=== PATIENT | male | born 1955 | race Caucasian/White ===

== ENCOUNTER 2016-09-30 19:01 | Inpatient (IN) | payer OTHER ==
[~2016-09-30] VITALS: Ht 190.5 cm; Wt 136.9 kg
[~2016-09-30 19:01] MED LIST: ASPEC81 PO; HYG25 PO; LBT200 PO; LSN20 PO; NRV5 PO
[2016-09-30 19:44] LABS: BASO % 0.3 %; BASO ABS # 0.02 K/uL (0-0.2); COMPLETE YES; EOS % 1.1 %; HEMATOCRIT 36.3 % (42-52); IG% 0.2 %; LYMPH % 31.9 %; LYMPH ABS # 1.99 K/uL (1.2-3.4); MEAN CELL VOLUME 89.6 fL (80-100); MEAN CORPUSCULAR HEMOGLOBIN 31.1 pg (25-34); MEAN CORPUSCULAR HGB CONC 34.7 g/dl (32-36); MEAN PLATELET VOLUME 11.6 fL (7.4-10.4); NEUT % 56.5 %; PLATELET COUNT 121 K/uL (130-400); RED BLOOD COUNT 4.05 M/uL (4.7-6.1); WHITE BLOOD COUNT 6.23 K/uL (4.8-10.8)
--- NOTE | 2016-09-30 19:48 | DIAGNOSTIC IMAGING REPORT ---
CHEST ONE VIEW PORTABLE CLINICAL HISTORY: CHEST PAIN dyspnea COMPARISON STUDY: 11/17/2013 FINDINGS: The bones soft tissues and hemidiaphragms are normal. The cardiomediastinal silhouette is normal. The lungs are clear. The pulmonary vasculature is normal. IMPRESSION: Negative chest. Electronically signed by: Rob Bowen M.D. 09/30/2016 7:46 PM
[2016-09-30 19:51] LABS: CALCIUM 8.3 mg/dl (8.5-10.1); CREATININE 2.3 mg/dl (0.60-1.40); POTASSIUM 3.7 mmol/L (3.5-5.1)
[2016-09-30 19:56] LABS: INR 1.2 (0.9-1.1); PARTIAL THROMBOPLASTIN RATIO 1.1; PROTHROMBIN TIME (PATIENT) 12.8 SECONDS (9.0-12.0)
--- NOTE | 2016-09-30 20:02 | EMERGENCY ROOM VISIT NOTE ---
History Report prepared by Minda: Saman Roberts Under the Supervision of: Dr. Rubens Allison M.D. First contact with patient: 19:30 Chief Complaint: CHEST PAIN Stated Complaint: CHEST PAIN SOB Nursing Triage Summary: Pt c/o CP, pain started a week ago in his left shoulder and it started down the left arm and now pain is across his chest. SOB at times. History of Present Illness The patient is a 61 year old male who presents to the Emergency Room with complaints of persistent left sided chest pain starting this morning. For the past few weeks, the patient has been having upper back pain radiating to the neck and the left shoulder. This morning, his pain moved to the left side of his chest with pain radiation to his left shoulder. He also complains of some shortness of breath and a mild cough. He has been fatigued for the past few days. He denies any fevers. He has gained about 30-40 pounds in the past 3 months. He intermittently has worsening pain with breathing. He denies any worsening symptoms with movement. He has been having worse than normal lower extremity swelling. He denies any recent trauma or injuries. He was recently started on a new medication called Pyridostigmine Butler. He denies any history of heart disease or lung disease. He has a history of hypertension, Hepatitis C, and kidney disease. Source of History: patient Onset: this morning Position: chest (left) Timing: other (persistent) Modifying Factors (Worsening): breathing Associated Symptoms: + SOB, + cough, + fatigue, No fevers Review of Systems See HPI for pertinent positives & negatives. A total of 10 systems reviewed and were otherwise negative. Past Medical & Surgical Medical Problems: (1) Cirrhosis (2) GERD (gastroesophageal reflux disease) (3) Hepatitis C (4) History of orthopedic surgery (5) Hypertension (6) Pneumonia Old medical records were reviewed. Nurse's notes were reviewed and I agree with. Family History Diabetes mellitus FH: cancer FH: heart disease FH: lung disease Hypertension Social History Smoking Status: Never Smoker Alcohol Use: none Drug Use: none Marital Status: Housing Status: lives with family Occupation Status: employed Current/Historical Medications Scheduled Amlodipine Besylate (Amlodipine Besylate), 5 MG PO DAILY Chlorthalidone (Chlorthalidone), 25 MG PO QAM Cyanocobalamin (Vitamin B-12), 500 MCG PO DAILY Furosemide (Lasix), 40 MG PO BID Gabapentin (Neurontin), 200 MG PO TID Labetalol Hcl (Normodyne), 100 MG PO BID Lisinopril (Zestril), 30 MG PO DAILY Pantoprazole (Protonix), 40 MG PO QAM Potassium Chloride (Klor-Con M20), 20 MEQ PO BID Pyridostigmine Butler (Mestinon), 60 MG PO UD Scheduled PRN Ranitidine Hcl (Zantac), 150 MG PO BID PRN for GASTRITIS Allergies Coded Allergies: Codeine (Verified Adverse Reaction, Mild, "MAKES ME GOOFEY", 09/30/16) Physical Exam Vital Signs Date Time Temp Pulse Resp B/P Pulse Ox O2 Delivery O2 Flow Rate FiO2 09/30/16 22:56 52 16 155/75 98 09/30/16 21:30 54 16 115/62 100 09/30/16 20:00 54 16 134/70 97 09/30/16 19:34 63 09/30/16 19:26 99 Room Air 09/30/16 19:11 99 09/30/16 19:07 36.5 61 18 145/77 99 Room Air Physical Exam General: Non-ill appearing, middle aged male, in no acute distress. HEENT: Normal cephalic atraumatic. Pupils are equal round and reactive to light. Extraocular movements are intact. Oropharynx is pink with moist mucous membranes. No swelling of the mouth lips or tongue. Neck: Supple with a midline trachea. No meningeal signs or stiffness, no JVD or bruits. No Stridor. Chest: Clear to auscultation bilaterally. No wheezes or rhonchi. No increased work of breathing. Heart: regular rate and rhythm. Abdomen: Soft nontender, nondistended without rebound guarding or rigidity. Extremities: No cyanosis clubbing. No calf tenderness or assymetry. Pitting bilateral lower extremity edema. Spine/Back. Non tender to palpation. No CVA tenderness Skin: Good turgor without rashes. Neurologic exam: Cranial nerves two through 12 are intact. Motor and sensation are intact and symmetrical throughout. Medical Decision & Procedures ER Provider Diagnostic Interpretation: X-ray results as stated below per interpretation by me and the radiologist: CHEST ONE VIEW PORTABLE CLINICAL HISTORY: CHEST PAIN dyspnea COMPARISON STUDY: 11/17/2013 FINDINGS: The bones soft tissues and hemidiaphragms are normal. The cardiomediastinal silhouette is normal. The lungs are clear. The pulmonary vasculature is normal. IMPRESSION: Negative chest. Electronically signed by: Rob Bowen M.D. 09/30/2016 7:46 PM Laboratory Results Test 09/30/16 19:20 09/30/16 19:48 Immature Granulocyte % (Auto) 0.2 % White Blood Count 6.23 K/uL (4.8-10.8) Red Blood Count 4.05 M/uL (4.7-6.1) Hemoglobin 12.6 g/dL (14.0-18.0) Hematocrit 36.3 % (42-52) Mean Corpuscular Volume 89.6 fL (80-100) Mean Corpuscular Hemoglobin 31.1 pg (25-34) Mean Corpuscular Hemoglobin Concent 34.7 g/dl (32-36) Platelet Count 121 K/uL (130-400) Mean Platelet Volume 11.6 fL (7.4-10.4) Neutrophils (%) (Auto) 56.5 % Lymphocytes (%) (Auto) 31.9 % Monocytes (%) (Auto) 10.0 % Eosinophils (%) (Auto) 1.1 % Basophils (%) (Auto) 0.3 % Neutrophils # (Auto) 3.52 K/uL (1.4-6.5) Lymphocytes # (Auto) 1.99 K/uL (1.2-3.4) Monocytes # (Auto) 0.62 K/uL (0.11-0.59) Eosinophils # (Auto) 0.07 K/uL (0-0.5) Basophils # (Auto) 0.02 K/uL (0-0.2) Immature Granulocyte # (Auto) 0.01 K/uL (0.00-0.02) Prothrombin Time 12.8 SECONDS (9.0-12.0) Prothromb Time International Ratio 1.2 (0.9-1.1) Activated Partial Thromboplast Time 27.6 SECONDS (21.0-31.0) Partial Thromboplastin Ratio 1.1 Total Bilirubin 0.3 mg/dl (0.2-1) Direct Bilirubin < 0.1 mg/dl (0-0.2) Aspartate Amino Transf (AST/SGOT) 23 U/L (15-37) Alanine Aminotransferase (ALT/SGPT) 18 U/L (12-78) Alkaline Phosphatase 77 U/L (45-117) Total Protein 8.0 gm/dl (6.4-8.2) Albumin 3.7 gm/dl (3.4-5.0) Lipase 208 U/L (73-393) Thyroid Stimulating Hormone (TSH) 0.832 uIu/ml (0.300-4.500) Bedside D-Dimer > 450 ng/mlFEU (0-450) Bedside Troponin I 0.000 ng/ml (0-0.045) PF-Eeg-G-Type Natriuretic Peptide 175 pg/ml (0-900) Laboratory studies as stated above per my review. Medications Administered Medications (Trade) Dose Ordered Sig/Elliot Route Start Time Stop Time Status Last Admin Dose Admin Ranitidine HCl (zANTac TAB) 150 mg BID PRN PO 09/30/16 22:45 10/30/16 22:44 10/01/16 07:53 150 MG ECG Indication: chest pain Rate (beats per minute): 56 Rhythm: sinus bradycardia Findings: no acute ischemic change, no ectopy Comparison ECG Date: November 16, 2013 Change: T wave abnormality has resolved when compared to November 16, 2013. ED Course 1930: Past medical records reviewed. The patient was evaluated in room A12A, and a complete history and physical examination were performed. 2221: Upon reevaluation, the patient is resting comfortably. I discussed the results and treatment plan with the patient. He verbalized agreement of the treatment plan. I discussed the patient's [facility] The patient will be evaluated for further management. Medical Decision Differential diagnosis includes but is not limited to CHF, acute coronary syndrome, arrhythmia, pneumonia, pulmonary embolism, medication side effect, neurologic process. This patient comes in as described above he's had shortness of breath and some vague chest discomfort as well as significant pitting edema of his legs. He does have a history of hypertension. He is on a diuretic. His lungs sound clear on exam. IV access established. EKG, chest x-ray multiple blood testing was obtained. He was found to have an elevated BUN and creatinine. His d- dimer was also elevated. I do not think he likely has a PE but with the elevated creatinine, a CAT scan at this point is not possible. His EKG does not suggest acute coronary syndrome or ischemia. Troponin is not elevated. He has nothing to suggest infection or sepsis. This may be related to his kidneys or could be right-sided heart failure or other etiology. He was recently started on physostigmine for what sounds like myasthenia. He does not appear to be having an acute myasthenic crisis. I do think he needs to be admitted for further treatment and evaluation. Consults Time Called: [id number] Consulting Physician: [facility] Returned Call: [phone] I discussed the patient's case with Dr. Bedoya, from [facility]. Impression Primary Impression: Precordial chest pain Additional Impressions: SOB (shortness of breath), Peripheral edema, Renal failure Scribe Attestation The scribe's documentation has been prepared under my direction and personally reviewed by me in its entirety. I confirm that the note above accurately reflects all work, treatment, procedures, and medical decision making performed by me. Departure Information Dispostion Being Evaluated By Hospitalist Referrals Homar Gill M.D. (PCP) Patient Instructions A Signature Page, My [facility]
[2016-09-30 20:10] LABS: POINT OF CARE PRO-BNP 175 pg/ml (0-900)
[2016-09-30 20:17] LABS: ALKALINE PHOSPHATASE 77 U/L (45-117); ALT/SGPT 18 U/L (12-78); AST/SGOT 23 U/L (15-37); CKMB/CK RATIO 1.5 (0-3.0); THYROID STIMULATING HORMONE 0.832 uIu/ml (0.300-4.500)
[2016-09-30] MEDS ORDERED: CYAN500T PO (21:28)
[2016-09-30] MEDS ORDERED: GABA-112 PO (21:28)
[2016-09-30] MEDS ORDERED: RANI150T3 PO (21:28)
[2016-09-30] MEDS ORDERED: NRV/5 PO (21:28)
[2016-09-30] MEDS ORDERED: MCRK20 PO (21:28)
[2016-09-30] MEDS ORDERED: PYRI60TA2 PO (21:28)
[2016-09-30] MEDS ORDERED: FRS/40 PO (21:28)
[2016-09-30] MEDS ORDERED: PANT40TA PO (21:28)
[2016-09-30] MEDS ORDERED: LISI1TAB3 PO (21:28)
[2016-09-30] MEDS ORDERED: LBT/100 PO (21:28)
[2016-09-30] MEDS ORDERED: ONDANSETRON INJ 2 MG/ML 2 ML VIAL IV PRN (22:45)
[2016-09-30] MEDS ORDERED: MoRPHine SULFATE 2 MG/ML CARP IV PRN (22:45)
[2016-09-30] MEDS ORDERED: POLYETHYLENE (MIRALAX) 17 GM PACK PO PRN (22:45)
[2016-09-30] MEDS ORDERED: ACETAMINOPHEN 325 MG TAB PO PRN (22:45)
[2016-09-30] MEDS ORDERED: MAGNESIUM HYDROXIDE SUSP 30 ML UDC PO PRN (22:45)
[2016-09-30] MEDS ORDERED: NITROGLYCERIN 0.4 MG SL PER TAB CHARGE SL PRN (22:45)
[2016-09-30] MEDS ORDERED: ALUMINUM/MAGNESIUM/SIMETH (MAALOX MAX) 30 ML UDC PO PRN (22:45)
--- NOTE | 2016-09-30 23:12 | History and Physical ---
History & Physical Date & Time of Service: Sep 30, 2016 at 23:09 Chief Complaint: Chest Pain Sob Primary Care Physician: No Doctor, Assigned History of Present Illness Source: patient 61 y/o M w/Hx Hep C successfully treated in 2014, HTN, chronic edema and possibly Myasthenia Gravis. He presents with a chief complaint of worsening edema, abdominal distention and orthopnea. He also states that he had B/L intermittent upper chest pain which was not necessarily associated with his SOB. The pt had been prescribed a 2 week course of a potent diuretic in addition to his current Lasix and Chlorthalidone for worsening LE edema recently, however this did not lead to improvement and was D/Cd possibly in favor of doubling his Lasix. He reports a 30 pound weight gain over the last month. He has been having issues with double vision for an extended period and reports having had surgery on his R eye in [place] and then being placed on Pyridostigmine 2 weeks ago possibly for a diagnosis of Myasthenia Gravis. Initial labs are notable for worsening renal function - although we do not have a recent - and elevated CK/CKMB with a normal troponin. The pt was admitted for hypertensive encephalopathy in 2013 and records indicate he may have had a degree of hepatocellular disease although there is no diagnosis of cirrhosis at that time. He is treated at the [place] clinic and has not been hospitalized since 2013 so our records at present are limited. 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 he has not been able to due to his vision Smoking Status: Never Smoker Drug Use: none Marital Status: Housing status: lives with family Occupational Status: employed Immunizations History of Influenza Vaccine: No History of Tetanus Vaccine?: No History of Pneumococcal: No History of Hepatitis B Vaccine: No Multi-Drug Resistant Organisms History of MDRO: No Allergies Coded Allergies: Codeine (Verified Adverse Reaction, Mild, "MAKES ME GOOFEY", 09/30/16) Home Medications Scheduled Amlodipine Besylate (Amlodipine Besylate), 5 MG PO DAILY Chlorthalidone (Chlorthalidone), 25 MG PO QAM Cyanocobalamin (Vitamin B-12), 500 MCG PO DAILY Furosemide (Lasix), 40 MG PO BID Gabapentin (Neurontin), 200 MG PO TID Labetalol Hcl (Normodyne), 100 MG PO BID Lisinopril (Zestril), 30 MG PO DAILY Pantoprazole (Protonix), 40 MG PO QAM Potassium Chloride (Klor-Con M20), 20 MEQ PO BID Pyridostigmine Preemption (Mestinon), 60 MG PO UD Scheduled PRN Ranitidine Hcl (Zantac), 150 MG PO BID PRN for GASTRITIS Review of Systems Constitutional: No chills, No fever, No sweats Eyes: + worsening of vision (Chronic diplopia) ENT: No hearing loss, No nasal symptoms, No unusual epistaxis Respiratory: + shortness of breath, No cough, No sputum, No wheezing Cardiovascular: + chest pain, + edema, + orthopnea Abdomen: + problem reported (Abdominal girth has increased), No diarrhea, No nausea, No pain, No vomiting Musculoskeletal: + problem reported (Chronic lumbar back pain), No joint pain Genitourinary - Male: No dysuria, No hematuria Neurologic: No memory loss Psychiatric: No depression symptoms Endocrine: No fatigue Hematologic / Lymphatic: No abnormal bleeding/bruising Integumentary: No rash Allergic / Immunologic: No environmental allergies Physical Exam Vital Signs Date Time Temp Pulse Resp B/P Pulse Ox O2 Delivery O2 Flow Rate FiO2 09/30/16 22:56 52 16 155/75 98 09/30/16 21:30 54 16 115/62 100 09/30/16 20:00 54 16 134/70 97 09/30/16 19:34 63 09/30/16 19:26 99 Room Air 09/30/16 19:11 99 09/30/16 19:07 36.5 61 18 145/77 99 Room Air General Appearance: + pertinent finding (Obese middle aged male - AAO x 3 - no distress) Head: normocephalic, atraumatic Eyes: + pertinent finding (Could not sustain upward gaze to evaluate for gradual ptosis - pupils equal - anicteric) ENT: normal ENT inspection, pharynx normal Neck: supple, no JVD Respiratory/Chest: chest non-tender, lungs clear, + decreased breath sounds ( Decreased air at bases - no audible wheezing or crackles) Cardiovascular: regular rate, rhythm, no gallop, no JVD, no murmur Abdomen/GI: + pertinent finding (Soft large abdomen - possible fluid wave - normal BS) Extremities/Musculoskelatal: no calf tenderness, + pedal edema, + swelling ( Significant B/L edema extending over ankles) Skin: normal color, warm/dry, no rash Diagnostics Laboratory Results Results Past 24 Hours Test 09/30/16 19:20 09/30/16 19:48 Range/Units White Blood Count 6.23 4.8-10.8 K/uL Red Blood Count 4.05 4.7-6.1 M/uL Hemoglobin 12.6 14.0-18.0 g/dL Hematocrit 36.3 42-52 % Mean Corpuscular Volume 89.6 80-100 fL Mean Corpuscular Hemoglobin 31.1 25-34 pg Mean Corpuscular Hemoglobin Concent 34.7 32-36 g/dl Platelet Count 121 130-400 K/uL Mean Platelet Volume 11.6 7.4-10.4 fL Neutrophils (%) (Auto) 56.5 % Lymphocytes (%) (Auto) 31.9 % Monocytes (%) (Auto) 10.0 % Eosinophils (%) (Auto) 1.1 % Basophils (%) (Auto) 0.3 % Neutrophils # (Auto) 3.52 1.4-6.5 K/uL Lymphocytes # (Auto) 1.99 1.2-3.4 K/uL Monocytes # (Auto) 0.62 0.11-0.59 K/uL Eosinophils # (Auto) 0.07 0-0.5 K/uL Basophils # (Auto) 0.02 0-0.2 K/uL RDW Standard Deviation 45.1 36.4-46.3 fL RDW Coefficient of Variation 13.7 11.5-14.5 % Immature Granulocyte % (Auto) 0.2 % Immature Granulocyte # (Auto) 0.01 0.00-0.02 K/uL Prothrombin Time 12.8 9.0-12.0 SECONDS Prothromb Time International Ratio 1.2 0.9-1.1 Activated Partial Thromboplast Time 27.6 21.0-31.0 SECONDS Partial Thromboplastin Ratio 1.1 Sodium Level 144 136-145 mmol/L Potassium Level 3.7 3.5-5.1 mmol/L Chloride Level 113 98-107 mmol/L Carbon Dioxide Level 20 21-32 mmol/L Anion Gap 11.0 3-11 mmol/L Blood Urea Nitrogen 48 7-18 mg/dl Creatinine 2.30 0.60-1.40 mg/dl Est Creatinine Clear Calc Drug Dose 51.3 ml/min Estimated GFR () 34.2 Estimated GFR (Non- 29.5 BUN/Creatinine Ratio 21.0 10-20 Random Glucose 100 70-99 mg/dl Calcium Level 8.3 8.5-10.1 mg/dl Total Bilirubin 0.3 0.2-1 mg/dl Direct Bilirubin < 0.1 0-0.2 mg/dl Aspartate Amino Transf (AST/SGOT) 23 15-37 U/L Alanine Aminotransferase (ALT/SGPT) 18 12-78 U/L Alkaline Phosphatase 77 45-117 U/L Total Creatine Kinase 447 39-308 U/L Creatine Kinase MB 6.9 0.5-3.6 ng/ml Creatine Kinase MB Ratio 1.5 0-3.0 Total Protein 8.0 6.4-8.2 gm/dl Albumin 3.7 3.4-5.0 gm/dl Lipase 208 73-393 U/L Thyroid Stimulating Hormone (TSH) 0.832 0.300-4.500 uIu/ml Bedside D-Dimer > 450 0-450 ng/mlFEU Bedside Troponin I 0.000 0-0.045 ng/ml SI-Xph-H-Type Natriuretic Peptide 175 0-900 pg/ml Diagnostic Radiology CXR is clear Normal EKG Impression Assessment and Plan 61 y/o M w/Hx Hep C successfully treated in 2015, HTN, chronic edema and possibly Myasthenia Gravis - presents with a chief complaint of worsening edema , abdominal distention and orthopnea - also states that he had B/L intermittent upper chest pain - had been prescribed a 2 week course of a potent diuretic in addition to his current Lasix and Chlorthalidone for worsening LE edema recently , however this did not lead to improvement and was D/Cd possibly in favor of doubling his Lasix. He reports a 30 pound weight gain over the last month. He has been having issues with double vision for an extended period and reports having had surgery on his R eye in [place] and then being placed on Pyridostigmine 2 weeks ago possibly for a diagnosis of Myasthenia Gravis. Initial labs are notable for worsening renal function - although we do not have a recent - and elevated CK/CKMB with a normal troponin. 1) Edema - worsening LE edema and possibly ascites - has failed a new diuretic and diuretic adjustment recently - cause is not clear as a diagnosis of heart failure is clinically nondefinitive, labs are not consistent with advanced cirrhosis and he does not have a history of nephrogenic edema. He is normotensive in addition. Pts albumin is WNL. We will obtain an abdominal CT, UA to evaluate for protein, request an AM echo and hold his current diuretics pending the results. 2) CP - CK/MB elevated with normal trop and normal EKG - doubt ACS as pain is B/ L and atypical - will monitor on telemetry and trend enzymes. 3) Renal failure - UA and urine lytes pending , CT abd pending - will consider IVF based on results and diuretics temporarily held - we will need to contact his clinic to determine if this is acute. 4) Possible recent diagnosis of MG - would not abruptly discontinue Mestinon - he states that his edema may have worsened since starting however I could not find any convincing correlation on an internet search. 5) HTN - Normotensive - he is mildly bradycardic without related symptoms - will cont Metoprolol - diuretics and SINA held until a baseline renal function or diagnosis is established. Full code - Anticoagulation held pending eval for cirrhosis Total time for this admit including med rec - review of labs, imaging, EHG - discussion with ER MD and pt 48 min Level of Care Telemetry Resuscitation Status FULL RESUSCITATION VTE Prophylaxis VTE Risk Assessment Done? Y/N: Yes Risk Level: Moderate Given or contraindicated: Contraindicated
[2016-10-01] VITALS (8 sets, daily range): BP systolic 115–167; BP diastolic 66–79; PULSE 53–64; TEMP 36.4–37.1; O2SAT 95–97; Ht 190.5 cm; Wt 136.9 kg
[2016-10-01] MEDS ORDERED: INFLUENZA VIRUS QUAD VACCINE 0.5 ML SYR IM. ONE (03:15)
[2016-10-01] MEDS ORDERED: INFLUENZA ADMINISTRATION CHARGE ONE (03:15)
[2016-10-01 03:45] LABS: URINE APPEARANCE CLEAR (CLEAR); URINE BILIRUBIN NEG (NEG); URINE COLOR YELLOW; URINE NITRITE NEG (NEG); URINE SPECIFIC GRAVITY 1.017 (1.000-1.030); UROBILINOGEN NEG (NEG)
[2016-10-01 03:46] LABS: MANUAL MICROSCOPIC REQUIRED? NO; REVIEW REQ? NO
[2016-10-01 06:21] LABS: HEMATOCRIT 32.6 % (42-52); MEAN CELL VOLUME 88.6 fL (80-100); MEAN CORPUSCULAR HEMOGLOBIN 30.4 pg (25-34); MEAN CORPUSCULAR HGB CONC 34.4 g/dl (32-36); PLATELET COUNT 115 K/uL (130-400); PLT ESTIMATE DECREASED; RED BLOOD COUNT 3.68 M/uL (4.7-6.1); WHITE BLOOD COUNT 6.29 K/uL (4.8-10.8)
[2016-10-01 06:29] LABS: BLOOD UREA NITROGEN 44 mg/dl (7-18); CALCIUM 8.1 mg/dl (8.5-10.1); CARBON DIOXIDE 21 mmol/L (21-32); CHLORIDE 113 mmol/L (98-107); GLUCOSE 86 mg/dl (70-99); MAGNESIUM 2.1 mg/dl (1.8-2.4); POTASSIUM 3.6 mmol/L (3.5-5.1); SODIUM 144 mmol/L (136-145)
[2016-10-01 06:35] LABS: CKMB/CK RATIO 1.2 (0-3.0); PHOSPHORUS 3.5 mg/dl (2.5-4.9)
[2016-10-01] MEDS ORDERED: PERFLUTREN LIPID MICROSPHERE (DEFINITY) IV ONE (07:15)
--- NOTE | 2016-10-01 07:42 | DIAGNOSTIC IMAGING REPORT ---
ABDOMEN AND PELVIS CT WITHOUT CONTRAST CT DOSE: 1593.86 mGy.cm HISTORY: Suspect cirrhosis/ascites TECHNIQUE: Multiaxial CT images of the abdomen and pelvis were performed without contrast. COMPARISON STUDY: Abdominal ultrasound 11/20/2013. FINDINGS: The lung bases are clear. No pneumoperitoneum. No pneumatosis. There are few pericardial calcifications. Mild body wall edema within the lumbar region. Cholelithiasis. The gallbladder is contracted. No definite gallbladder wall thickening. Punctate calcification within the pancreatic head. Nodular contour to the liver consistent with cirrhosis. The spleen is normal in size. The adrenal glands and kidneys are unremarkable. No hydronephrosis. Mild bilateral perinephric edema which is likely chronic. No retroperitoneal lymphadenopathy. Normal bladder. Small fat-containing bilateral inguinal hernias. Suboptimal evaluation for bowel pathology due to the lack of intravenous and oral contrast. However, there is no definite bowel wall thickening or obstruction. Normal appendix. There are few left-sided abdominal venous collaterals. IMPRESSION: 1. Cirrhotic liver. 2. Cholelithiasis. 3. Colonic diverticulosis. 4. Normal appendix. 5. No definite bowel wall thickening or obstruction. Electronically signed by: Dragan Cruz M.D. 10/01/2016 7:40 AM
[2016-10-01] MEDS: LABETALOL HCL 100 MG TAB PO SCH ×2 (07:51→20:39)
[2016-10-01] MEDS: PANTOprazole SOD 40 MG TAB PO SCH (07:51)
[2016-10-01] MEDS: GABAPENTIN 100 MG CAP PO SCH ×3 (07:52→20:39)
[2016-10-01] MEDS: RANITIDINE HCL 150 MG TAB PO PRN (07:53)
[2016-10-01] MEDS: CYANOCOBALAMIN 500 MCG TAB (VIT B-12) PO SCH (07:53)
[2016-10-01] MEDS ORDERED: AMLODIPINE BESYLATE 5 MG TAB PO SCH (09:00)
[2016-10-01] MEDS: PYRIDOSTIGMINE BROMIDE 60 MG TAB PO SCH ×2 (09:04→20:39)
[2016-10-01] MEDS ORDERED: FUROSEMIDE 40 MG TAB PO ONE (10:52)
[2016-10-01] MEDS ORDERED: SPIRONOLACTONE 100 MG TAB PO ONE (10:52)
--- NOTE | 2016-10-01 11:30 | Nephrology Consultation ---
Nephrology Consultation Date & Providers Date of Consultation: Oct 01, 2016. Primary Care Provider: No Doctor, Assigned Referring Provider: Reason for Consultation Evaluation of renal insufficiency in this patient admitted with chest pain, abdominal and lower extremity edema History of Present Illness Mr. Cassidy is a 61 year old white male who is seen at the request of Dr. Wei for evaluation of renal insufficiency. Medical records in the hospital EMR were reviewed and are summarized as follows: The patient was previously cared for by Dr. Gill. Since 2013 he has received all of his medical care from the [facility]. He is hepatitis C +. 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 He has cirrhosis, HTN and myasthenia gravis. Mr. Cassidy states that over the last 3 months he has gained 30 lbs and noticed increasing abdominal girth with lower extremity edema. He was evaluated at the [facility] and started on diuretic therapy. Unfortunately his symptoms progressed and he developed orthopnea and progressive chest discomfort. Last night he experience precordial chest pain with radiation to his upper back and left arm. He presented to the ED for evaluation. ECG revealed sinus bradycardia. There were no acute ischemic changes. CPK was elevated but troponin was normal. Creatinine was found to be elevated at 2.3. Noncontrast abdominal CT was negative for hydronephrosis or renal mass but did reveal cirrhosis with ascites. Past Medical/Surgical History Medical: # Hepatitis C + # Cirrhosis # Myasthenia gravis w/ double vision # GERD # HTN Allergies Coded Allergies: Codeine (Verified Adverse Reaction, Mild, "MAKES ME GOOFEY", 09/30/16) Inpatient Medications Current Inpatient Medications Medications (Trade) Dose Ordered Sig/Elliot Route Start Time Stop Time Status Last Admin Dose Admin Cyanocobalamin (Vitamin B-12 Tab) 500 mcg DAILY PO 10/01/16 09:00 10/31/16 08:59 10/01/16 07:53 500 MCG Gabapentin (Neurontin Cap) 200 mg TID PO 10/01/16 09:00 10/31/16 08:59 10/01/16 07:52 200 MG Labetalol HCl (Normodyne Tab) 100 mg BID PO 10/01/16 09:00 10/31/16 08:59 10/01/16 07:51 100 MG Pantoprazole Sodium (Protonix Tab) 40 mg QAM PO 10/01/16 09:00 10/31/16 08:59 10/01/16 07:51 40 MG Pyridostigmine [place] (Mestinon Tab) 60 mg BID PO 10/01/16 09:00 10/03/16 21:01 10/01/16 09:04 60 MG Ranitidine HCl (zANTac TAB) 150 mg BID PRN PO 09/30/16 22:45 10/30/16 22:44 10/01/16 07:53 150 MG Acetaminophen (Tylenol Tab) 650 mg Q4H PRN PO 09/30/16 22:45 10/30/16 22:44 Al Hydrox/Mg Hydrox/Simethicone (Maalox Max Susp) 15 ml Q4H PRN PO 09/30/16 22:45 10/30/16 22:44 Magnesium Hydroxide (Milk Of Magnesia Susp) 30 ml Q12H PRN PO 09/30/16 22:45 10/30/16 22:44 Ondansetron HCl (Zofran Inj) 4 mg Q6H PRN IV 09/30/16 22:45 10/30/16 22:44 Nitroglycerin (Nitrostat Tab) 0.4 mg UD PRN SL 09/30/16 22:45 10/30/16 22:44 Morphine Sulfate (MoRPHine SULFATE INJ) 2 mg Q30M PRN IV 09/30/16 22:45 10/14/16 22:44 Polyethylene (Miralax Powder Packet) 17 gm DAILY PRN PO 09/30/16 22:45 10/30/16 22:44 Pyridostigmine [place] (Mestinon Tab) 60 mg TID PO 10/04/16 09:00 10/10/16 21:01 Pyridostigmine [place] (Mestinon Tab) 60 mg QID PO 10/11/16 09:00 11/10/16 08:59 Furosemide (Lasix tab) 40 mg QAM PO 10/02/16 09:00 11/01/16 08:59 UNV Furosemide (Lasix tab) 40 mg 1052 ONCE PO 10/01/16 10:52 10/01/16 10:53 UNV Spironolactone (Aldactone Tab) 100 mg QAM PO 10/02/16 09:00 11/01/16 08:59 UNV Spironolactone (Aldactone Tab) 100 mg 1052 ONCE PO 10/01/16 10:52 10/01/16 10:53 UNV Family History Diabetes mellitus FH: cancer FH: heart disease FH: lung disease Hypertension Negative for CKD/ESRD Social History Smoking Status: Never Smoker Drug Use: none Marital Status: Housing Status: lives with family Occupation: employed Single. Unemployed. Never a smoker. Denies alcohol use. Review of Systems Constitutional: No fever Respiratory: No cough, No shortness of breath Cardiovascular: + edema, No chest pain Abdomen: + problem reported (+ abdominal distention) A complete review of systems was performed. Pertinent positives are noted above. All other systems are negative. Physical Exam Date Time Temp Pulse Resp B/P Pulse Ox O2 Delivery O2 Flow Rate FiO2 10/01/16 08:17 36.8 63 22 128/79 95 Room Air 10/01/16 04:00 Room Air 10/01/16 04:00 Room Air 10/01/16 03:19 36.4 64 20 115/66 96 Room Air 10/01/16 00:19 36.7 58 21 167/70 97 Room Air 09/30/16 23:11 56 09/30/16 22:56 52 16 155/75 98 09/30/16 21:30 54 16 115/62 100 09/30/16 20:00 54 16 134/70 97 09/30/16 19:34 63 09/30/16 19:26 99 Room Air 09/30/16 19:11 99 09/30/16 19:07 36.5 61 18 145/77 99 Room Air General Appearance: no apparent distress Head: normocephalic, atraumatic Eyes: PERRL, EOMI Neck: supple, no adenopathy, no JVD Respiratory/Chest: lungs clear, no respiratory distress Cardiovascular: regular rate, rhythm, no murmur Abdomen/GI: non tender, soft, + distended Genitourinary - Male: + pertinent finding (no scrotal swelling) Extremities/Musculoskelatal: + swelling (2+ pretibial pitting edema) Neurologic/Psych: alert, oriented x 3 Laboratory Results Last 24 Hours Test 09/30/16 19:20 09/30/16 19:48 10/01/16 03:15 10/01/16 04:56 White Blood Count 6.23 K/uL 6.29 K/uL Red Blood Count 4.05 M/uL 3.68 M/uL Hemoglobin 12.6 g/dL 11.2 g/dL Hematocrit 36.3 % 32.6 % Mean Corpuscular Volume 89.6 fL 88.6 fL Mean Corpuscular Hemoglobin 31.1 pg 30.4 pg Mean Corpuscular Hemoglobin Concent 34.7 g/dl 34.4 g/dl Platelet Count 121 K/uL 115 K/uL Mean Platelet Volume 11.6 fL 12.0 fL Neutrophils (%) (Auto) 56.5 % Lymphocytes (%) (Auto) 31.9 % Monocytes (%) (Auto) 10.0 % Eosinophils (%) (Auto) 1.1 % Basophils (%) (Auto) 0.3 % Neutrophils # (Auto) 3.52 K/uL Lymphocytes # (Auto) 1.99 K/uL Monocytes # (Auto) 0.62 K/uL Eosinophils # (Auto) 0.07 K/uL Basophils # (Auto) 0.02 K/uL RDW Standard Deviation 45.1 fL 43.8 fL RDW Coefficient of Variation 13.7 % 13.6 % Immature Granulocyte % (Auto) 0.2 % Immature Granulocyte # (Auto) 0.01 K/uL Prothrombin Time 12.8 SECONDS Prothromb Time International Ratio 1.2 Activated Partial Thromboplast Time 27.6 SECONDS Partial Thromboplastin Ratio 1.1 Sodium Level 144 mmol/L 144 mmol/L Potassium Level 3.7 mmol/L 3.6 mmol/L Chloride Level 113 mmol/L 113 mmol/L Carbon Dioxide Level 20 mmol/L 21 mmol/L Anion Gap 11.0 mmol/L 10.0 mmol/L Blood Urea Nitrogen 48 mg/dl 44 mg/dl Creatinine 2.30 mg/dl 2.10 mg/dl Est Creatinine Clear Calc Drug Dose 51.3 ml/min 55.7 ml/min Estimated GFR () 34.2 38.2 Estimated GFR (Non- 29.5 33.0 BUN/Creatinine Ratio 21.0 21.0 Random Glucose 100 mg/dl 86 mg/dl Calcium Level 8.3 mg/dl 8.1 mg/dl Total Bilirubin 0.3 mg/dl Direct Bilirubin < 0.1 mg/dl Aspartate Amino Transf (AST/SGOT) 23 U/L Alanine Aminotransferase (ALT/SGPT) 18 U/L Alkaline Phosphatase 77 U/L Total Creatine Kinase 447 U/L 388 U/L Creatine Kinase MB 6.9 ng/ml 4.8 ng/ml Creatine Kinase MB Ratio 1.5 1.2 Total Protein 8.0 gm/dl Albumin 3.7 gm/dl Lipase 208 U/L Thyroid Stimulating Hormone (TSH) 0.832 uIu/ml Bedside D-Dimer > 450 ng/mlFEU Bedside Troponin I 0.000 ng/ml YO-Pim-V-Type Natriuretic Peptide 175 pg/ml Urine Color YELLOW Urine Appearance CLEAR Urine pH 5.0 Urine Specific [place] 1.017 Urine Protein NEG Urine Glucose (UA) NEG Urine Ketones NEG Urine Occult Blood NEG Urine Nitrite NEG Urine Bilirubin NEG Urine Urobilinogen NEG Urine Leukocyte Esterase NEG Platelet Estimate DECREASED Phosphorus Level 3.5 mg/dl Magnesium Level 2.1 mg/dl Troponin I < 0.015 ng/ml Impression (1) Renal failure (2) Cirrhosis (3) Hepatitis C (4) Precordial chest pain (5) Hypertension Renal impairment. Urine sediment is acellular. Urinary protein was negative by dipstick. Abdominal CT was negative for obstruction. Patient's last creatinine value in EMR was 2012. Creatinine was 1.0 at that time. Patient's history is significant for Hepatitis C + and cirrhosis. He was admitted for evaluation of chest discomfort, orthopnea and progressive abdominal ascites and lower extremity edema. Recommendations -- Will request last OV note and previous serum creatinine values from the [facility] -- Will order renal US to check kidney size and cortical thickness -- Start furosemide 40 mg and spironolactone 100 mg daily to mobilize ascites and peripheral edema -- Discontinue amlodipine (LE edema), chlorthalidone and lisinopril -- Continue Labetalol for blood pressure control -- Monitor serial PRP -- Will check hepatitis C titer -- Consider consultation w/ GI due to cirrhosis -- Will order echocardiogram due to chest discomfort and progressive edema
--- NOTE | 2016-10-01 13:31 | DIAGNOSTIC IMAGING REPORT ---
RENAL ULTRASOUND HISTORY: Chronic kidney disease. COMPARISON: Abdomen and pelvis CT 09/30/2016. Renal ultrasound 11/19/2013. FINDINGS: Right kidney: 11.3 cm. No hydronephrosis. Moderate cortical thinning most pronounced within the lower pole which measures 1.4 cm in thickness. Normal corticomedullary differentiation. Left kidney: 10.6 cm. No hydronephrosis. Moderate cortical thinning most pronounced within the upper pole which measures 1.3 cm in thickness. Normal corticomedullary differentiation. There is 1.4 cm cyst within the lower pole. Bladder: No bladder wall thickening. IMPRESSION: 1. Moderate bilateral cortical renal thinning. 2. No hydronephrosis. Electronically signed by: Dragan Crzu M.D. 10/01/2016 1:30 PM
[2016-10-01 15:03] LABS: URINE PROTIEN/CREAT RATIO 0.2 (0-0.2); URINE TOTAL PROTEIN 10.6 mg/dl (0-11.9)
--- NOTE | 2016-10-01 15:21 | ECHOCARDIOGRAM REPORT ---
*NOTICE TO RECEIVING [employer] This information is strictly Confidential and protected under [place] law. [place] law prohibits you from making any further disclosure of this information unless further disclosure is expressly permitted by the written consent of the person to whom it pertains or is authorized by law. A general authorization for the release of medical or other information is not sufficient for this purpose. Hospital accepts no responsibility if the information is made available to any other person, INCLUDING THE PATIENT. Interpretation Summary * Name: PABLITO RANGEL Study Date: 10/01/2016 06:53 AM BP: 128/79 mmHg * Patient Location: C.2T\S\S229\S\1 HR: 63 * : 1955 (M/d/yyyy) Gender: Male Height: 75 in * Age: 61 yrs Ethnicity: CA Weight: 313 lb * Ordering Physician: Chava Bedoya * Referring Physician: Self, Referred * Performed By: Matt Farias RCS * * Reason For Study: CHF * BSA: 2.7 m2 * -- Conclusions -- * Compared with 11/17/13 study, no significant change. * The left ventricle is normal in size. * Ejection Fraction = 65-70%. * Left ventricular systolic function is normal. * The left ventricular wall motion is normal. * There is mild concentric left ventricular hypertrophy. * Grade I diastolic dysfunction, (abnormal relaxation pattern). * No significant valvular disease. Procedure Details * A complete two-dimensional transthoracic echocardiogram was performed (2D, M-mode, Doppler and color flow Doppler). * The study was technically difficult. * There were technical limitations due to patient'sbody habitus * A contrast injection of Definity was performed to improve assessment of LV function. * Contrast was injected into an intravenous site in the left arm. * One vial of Definity ultrasound contrast was diluted in normal saline to a total volume of 10 ml. A total of '2' ml of solution was administered during imaging. * Lot # [id number] of Definity utilized for procedure. * Expiration date 1JUN. * The attending nurse who injected the contrast agent was Milly Burgos RN. Left Ventricle * The left ventricle is normal in size. * There is mild concentric left ventricular hypertrophy. * Ejection Fraction = 65-70%. * Left ventricular systolic function is normal. * The left ventricular wall motion is normal. Right Ventricle * The right ventricle is grossly normal size. Atria * The left atrial size is normal. * Right atrial size is normal. * The interatrial septum is intact with no evidence for an atrial septal defect. Mitral Valve * The mitral valve is normal in structure and function. * Significant mitral regurgitation is absent. Tricuspid Valve * The tricuspid valve is normal in structure and function. * Significant tricuspid regurgitation is absent. Aortic Valve * Aortic valve sclerosis mild, without significant aortic valvular stenosis. * No hemodynamically significant valvular aortic stenosis. * There is no significant aortic regurgitation. Pulmonic Valve * The pulmonary valve is inadequately visualized, but the Doppler data is adequate for interpretation. * There is no pulmonic valvular regurgitation. Great Vessels * Aortic arch of normal dimension. * No obvious dissection could be visualized. * The pulmonary artery is not well visualized, but is probably normal size. Pericardium/Pleural * There is no pericardial effusion. Great Vessels * Normal inferior vena cava diameter and respiratory variation suggests normal central venous pressure. Left Ventricular Diastolic Function * Grade I diastolic dysfunction, (abnormal relaxation pattern). MMode 2D Measurements and Calculations IVSd 1.2 cm IVSs 1.4 cm LVIDd 6.0 cm LVIDs 3.7 cm LVPWd 1.2 cm LVPWs 1.5 cm IVS/LVPW 1.0 FS 37.4 % EDV(Teich) 178.9 ml ESV(Teich) 60.0 ml EF(Teich) 66.5 % EDV(cubed) 214.3 ml ESV(cubed) 52.7 ml EF(cubed) 75.4 % % IVS thick 16.1 % % LVPW thick 25.7 % LV mass(C)d 324.0 grams LV mass(C)dI 122.1 grams/m\S\2 LV mass(C)s 210.1 grams LV mass(C)sI 79.1 grams/m\S\2 CO(Teich) 8.4 l/min CI(Teich) 3.2 l/min/m\S\2 SV(Teich) 118.9 ml SI(Teich) 44.8 ml/m\S\2 CO(cubed) 11.5 l/min CI(cubed) 4.3 l/min/m\S\2 SV(cubed) 161.6 ml SI(cubed) 60.9 ml/m\S\2 Ao root diam 4.0 cm Ao root area 12.4 cm\S\2 ACS 1.5 cm LA dimension 3.9 cm LA/Ao 0.99 LVAd ap4 32.3 cm\S\2 LVLd ap4 8.2 cm EDV(MOD-sp4) 104.0 ml LVAs ap4 16.9 cm\S\2 LVLs ap4 7.7 cm ESV(MOD-sp4) 31.0 ml EF(MOD-sp4) 70.2 % LVAd ap2 40.3 cm\S\2 LVLd ap2 9.3 cm EDV(MOD-sp2) 143.0 ml LVAs ap2 18.3 cm\S\2 LVLs ap2 8.0 cm ESV(MOD-sp2) 35.0 ml EF(MOD-sp2) 75.5 % CO(MOD-sp4) 5.2 l/min CI(MOD-sp4) 2.0 l/min/m\S\2 SV(MOD-sp4) 73.0 ml SI(MOD-sp4) 27.5 ml/m\S\2 CO(MOD-sp2) 7.7 l/min CI(MOD-sp2) 2.9 l/min/m\S\2 SV(MOD-sp2) 108.0 ml SI(MOD-sp2) 40.7 ml/m\S\2 Doppler Measurements and Calculations MV E max bin 128.2 cm/sec MV A max bin 104.2 cm/sec MV E/A 1.2 MV P1/2t max bin 153.8 cm/sec MV P1/2t 91.8 msec MVA(P1/2t) 2.4 cm\S\2 MV dec slope 490.6 cm/sec\S\2 MV dec time 0.25 sec Ao V2 max 182.2 cm/sec Ao max PG 13.3 mmHg Ao max PG (full) 1.2 mmHg LV V1 max PG 12.0 mmHg LV V1 max 173.5 cm/sec PA V2 max 116.4 cm/sec PA max PG 5.4 mmHg
--- NOTE | 2016-10-01 19:44 | Hospitalist Progress Note ---
Hospitalist Progress Note Date of Service Oct 01, 2016. Subjective Pt evaluation today including: conversation w/ patient, physical exam, chart review, lab review, review of studies, review of inpatient medication list Pt is a 61 yo male with a recent dx of Myasthenia Gravis diagnosed after having diplopia and an EMG of the neck and face. He was started on Mestinon about 1-2 weeks ago. He reports about 4-5 days ago he started noticing SOB that was progressively worse. There was also some left shoulder pain that then radiated across his left chest over to the right chest and was fairly severe, associated with the SOB. When he would stop and rest, the SOB would improve. The CP came and went over the last few days but his biggest complaint is the progressively worsening SOb over the last 4-5 days that got so bad he came to the ER. Lookig back, he does think he has had some mild SOB over the last year. He also has had about a 30 lb weight gain and abd distension and was found to have cirrhosis on imaging performed here in the ER. He does note his plts have been a little low over the past few years at the [facility] where [facility] gets his care. He was treated for Hep C successfully in 2014. He has never had a cardiac stress test. He reports his BP was previously significantly elevated nad was admitted here in 2-14 fo rthis but since taking meds, it has improved. He was never a smoker. His CXR here is clear, his ECHO shows grade 1 diastolic dysfunction and LVH but otherwise normal LV fxn and valves. He is unsure if he had renal failure in the past and we are now awaiting [facility] to see what baseline design chief is. His legs have been largely swollen over the last 6-8 months and he reports today is the first time he has seen his ankles in 8 months after receiving one dose of lasix and aldactone. No more CP since being here. Trop neg x 2, ECG normal. Constitutional: No fever Eyes: + diplopia ENT: No problem reported Respiratory: + dyspnea on exertion, + shortness of breath Cardiovascular: + chest pain, + edema, No orthopnea Abdomen: No nausea, No pain, No vomiting Musculoskeletal: + swelling (legs) Male : No problem reported Psychiatric: No problem reported Heme: No problem reported Endo: No fatigue All Other Systems: Reviewed and Negative Objective Vital Signs Date Time Temp Pulse Resp B/P Pulse Ox O2 Delivery O2 Flow Rate FiO2 10/01/16 16:00 Room Air 10/01/16 14:56 36.9 54 20 143/73 97 Room Air 10/01/16 12:00 Room Air 10/01/16 11:32 37.0 57 18 124/66 96 Room Air 10/01/16 08:17 36.8 63 22 128/79 95 Room Air 10/01/16 08:00 96 Room Air 10/01/16 04:00 Room Air 10/01/16 04:00 Room Air 10/01/16 03:19 36.4 64 20 115/66 96 Room Air 10/01/16 00:19 36.7 58 21 167/70 97 Room Air 09/30/16 23:11 56 09/30/16 22:56 52 16 155/75 98 09/30/16 21:30 54 16 115/62 100 09/30/16 20:00 54 16 134/70 97 09/30/16 19:34 63 09/30/16 19:26 99 Room Air Physical Exam General Appearance: no apparent distress (very pleasant), + obese Eyes: EOMI, sclerae normal, + pertinent finding (slightly disconjugate gaze, has diplopia with forward gaze and pretty much in all directions) ENT: hearing grossly normal, pharynx normal Neck: trachea midline Respiratory/Chest: lungs clear, normal breath sounds, no respiratory distress, no accessory muscle use Cardiovascular: regular rate, rhythm, no gallop, no murmur, + pertinent finding (3+ pitting edema LEs to thighs bilat) Abdomen: normal bowel sounds, non tender, soft (and obese,), no organomegaly Extremities: non-tender, no calf tenderness Neurologic/Psychiatric: alert, normal mood/affect, oriented x 3, + EOM palsy Skin: normal color, warm/dry, + rash (mild erythematous maculopapular rash on right upper chest) Laboratory Results Last 24 Hours Test 09/30/16 19:20 09/30/16 19:48 10/01/16 03:15 10/01/16 04:56 White Blood Count 6.23 K/uL 6.29 K/uL Red Blood Count 4.05 M/uL 3.68 M/uL Hemoglobin 12.6 g/dL 11.2 g/dL Hematocrit 36.3 % 32.6 % Mean Corpuscular Volume 89.6 fL 88.6 fL Mean Corpuscular Hemoglobin 31.1 pg 30.4 pg Mean Corpuscular Hemoglobin Concent 34.7 g/dl 34.4 g/dl Platelet Count 121 K/uL 115 K/uL Mean Platelet Volume 11.6 fL 12.0 fL Neutrophils (%) (Auto) 56.5 % Lymphocytes (%) (Auto) 31.9 % Monocytes (%) (Auto) 10.0 % Eosinophils (%) (Auto) 1.1 % Basophils (%) (Auto) 0.3 % Neutrophils # (Auto) 3.52 K/uL Lymphocytes # (Auto) 1.99 K/uL Monocytes # (Auto) 0.62 K/uL Eosinophils # (Auto) 0.07 K/uL Basophils # (Auto) 0.02 K/uL RDW Standard Deviation 45.1 fL 43.8 fL RDW Coefficient of Variation 13.7 % 13.6 % Immature Granulocyte % (Auto) 0.2 % Immature Granulocyte # (Auto) 0.01 K/uL Prothrombin Time 12.8 SECONDS Prothromb Time International Ratio 1.2 Activated Partial Thromboplast Time 27.6 SECONDS Partial Thromboplastin Ratio 1.1 Sodium Level 144 mmol/L 144 mmol/L Potassium Level 3.7 mmol/L 3.6 mmol/L Chloride Level 113 mmol/L 113 mmol/L Carbon Dioxide Level 20 mmol/L 21 mmol/L Anion Gap 11.0 mmol/L 10.0 mmol/L Blood Urea Nitrogen 48 mg/dl 44 mg/dl Creatinine 2.30 mg/dl 2.10 mg/dl Est Creatinine Clear Calc Drug Dose 51.3 ml/min 55.7 ml/min Estimated GFR () 34.2 38.2 Estimated GFR (Non- 29.5 33.0 BUN/Creatinine Ratio 21.0 21.0 Random Glucose 100 mg/dl 86 mg/dl Calcium Level 8.3 mg/dl 8.1 mg/dl Total Bilirubin 0.3 mg/dl Direct Bilirubin < 0.1 mg/dl Aspartate Amino Transf (AST/SGOT) 23 U/L Alanine Aminotransferase (ALT/SGPT) 18 U/L Alkaline Phosphatase 77 U/L Total Creatine Kinase 447 U/L 388 U/L Creatine Kinase MB 6.9 ng/ml 4.8 ng/ml Creatine Kinase MB Ratio 1.5 1.2 Total Protein 8.0 gm/dl Albumin 3.7 gm/dl Lipase 208 U/L Thyroid Stimulating Hormone (TSH) 0.832 uIu/ml Bedside D-Dimer > 450 ng/mlFEU Bedside Troponin I 0.000 ng/ml [id number] Natriuretic Peptide 175 pg/ml Urine Color YELLOW Urine Appearance CLEAR Urine pH 5.0 Urine Specific [place] 1.017 Urine Protein NEG Urine Glucose (UA) NEG Urine Ketones NEG Urine Occult Blood NEG Urine Nitrite NEG Urine Bilirubin NEG Urine Urobilinogen NEG Urine Leukocyte Esterase NEG Platelet Estimate DECREASED Phosphorus Level 3.5 mg/dl Magnesium Level 2.1 mg/dl Troponin I < 0.015 ng/ml Test 10/01/16 12:20 10/01/16 13:45 Urine Random Creatinine 73.0 mg/dl Urine Random Total Protein 10.6 mg/dl Urine Protein/Creatinine Ratio 0.2 Assessment and Plan Pt is a 61 yo male with a h/o HTN, Hep C (treated), recent dx of Myasthenia Gravis diagnosed after having diplopia and an EMG of the neck and face. He was started on Mestinon about 1-2 weeks ago. He reports about 4-5 days ago he started noticing SOB that was progressively worse. There was also some left shoulder pain that then radiated across his left chest over to the right chest and was fairly severe, associated with the SOB. When he would stop and rest, the SOB would improve. The CP came and went over the last few days but his biggest complaint is the progressively worsening SOB over the last 4-5 days that got so bad he came to the ER. Looking back, he does think he has had some mild SOB over the last year. He also has had about a 30 lb weight gain and abd distension and was found to have cirrhosis on imaging performed here in the ER. He does note his pl[facility] He was treated for Hep C successfully in 2014. He has never had a cardiac stress test. He reports his BP was previously significantly elevated nad was admitted here in 2-14 fo rthis but since taking meds, it has improved. He was never a smoker. His CXR here is clear, his ECHO shows grade 1 diastolic dysfunction and LVH but otherwise normal LV fxn and valves. He is unsure if he had renal failure in the past and we are now awaiting his [facility] labs to see what baseline design chief is. His legs have been largely swollen over the last 6-8 months and he reports today is the first time he has seen his ankles in 8 months after receiving one dose of lasix and aldactone. No more CP since being here. Trop neg x 2, ECG normal. He had been prescribed a 2 week course of a potent diuretic he describes in addition to his current Lasix and Chlorthalidone for worsening LE edema recently , however this did not lead to improvement and was D/Cd possibly in favor of doubling his Lasix. Edema, CKD stage III with possible RENÉE - worsening LE edema and possibly ascites , on several diuretics and ACEI. 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 Cause could be from cirrhosis although albumin is WNL. Abd CT shows cirrhosis and some perinephric edema, UA to negative for protein. ECHO with grade 1 diastolic dysfunction and LVH, preserved LVEF. Renal US with cortical thinning, no obstruction -Nephrology consulted and appreciate recommendations -follow PRP -started lasix and aldactone -stop amlodipine (due to peripheral edema) and lisinopril as per Nephro CP, SOB, Myasthenia gravis by report, on Mestinon x 1-2 week - CK/MB elevated with normal trop and normal EKG. Second troponin negative. I believe his worsening SOB is related to his MG or possibly as an adverse side effect of his Mestinon as it did seem to worsen significantly after starting this med. -consult Cardiology for eval for appropriate stress testing given risk factors and anginal type chest pain--> probably not able to exercise due to significant CHASE and Myasthenia -Consult Neuro to assist with management and further workup for MG -continue Mestinon for now -request [facility] records Cirrhosis, h/o treated Hep C, thrombocytopenia- INR 1.2, plts 112, LFTs normal, cirrhosis on CT with some ascites. No evidence clinically of varices or h/o GI bleeding. -started lasix and aldactone -consult GI for further eval HTN - Normotensive -continue labetalol Full code - Anticoagulation held pending eval for cirrhosis
[2016-10-02] VITALS (10 sets, daily range): BP systolic 119–152; BP diastolic 69–81; PULSE 50–60; TEMP 36.3–37; O2SAT 94–98
[2016-10-02 06:05] LABS: HEMATOCRIT 33.2 % (42-52); MEAN CELL VOLUME 89.2 fL (80-100); MEAN CORPUSCULAR HEMOGLOBIN 30.6 pg (25-34); MEAN CORPUSCULAR HGB CONC 34.3 g/dl (32-36); MEAN PLATELET VOLUME 11.1 fL (7.4-10.4); PLATELET COUNT 105 K/uL (130-400); RED BLOOD COUNT 3.72 M/uL (4.7-6.1); WHITE BLOOD COUNT 5.42 K/uL (4.8-10.8)
[2016-10-02 06:20] LABS: INR 1.1 (0.9-1.1); PROTHROMBIN TIME (PATIENT) 12.3 SECONDS (9.0-12.0)
[2016-10-02 06:30] LABS: AST/SGOT 17 U/L (15-37); BLOOD UREA NITROGEN 38 mg/dl (7-18); BUN/CREATININE RATIO 20.9 (10-20); CALCIUM 8.8 mg/dl (8.5-10.1); CARBON DIOXIDE 26 mmol/L (21-32); CHLORIDE 109 mmol/L (98-107); GLUCOSE 96 mg/dl (70-99); POTASSIUM 3.7 mmol/L (3.5-5.1); SODIUM 142 mmol/L (136-145)
[2016-10-02 06:33] LABS: ALKALINE PHOSPHATASE 70 U/L (45-117); ALT/SGPT 18 U/L (12-78)
[2016-10-02] MEDS: PYRIDOSTIGMINE BROMIDE 60 MG TAB PO SCH (08:15)
[2016-10-02] MEDS: PANTOprazole SOD 40 MG TAB PO SCH (08:15)
[2016-10-02] MEDS: CYANOCOBALAMIN 500 MCG TAB (VIT B-12) PO SCH (08:16)
[2016-10-02] MEDS: RANITIDINE HCL 150 MG TAB PO PRN (08:16)
[2016-10-02] MEDS: GABAPENTIN 100 MG CAP PO SCH ×3 (08:18→21:59)
[2016-10-02] MEDS: SPIRONOLACTONE 100 MG TAB PO SCH (08:18)
[2016-10-02] MEDS: FUROSEMIDE 40 MG TAB PO SCH (08:18)
[2016-10-02] MEDS: LABETALOL HCL 100 MG TAB PO SCH ×2 (08:18→21:59)
--- NOTE | 2016-10-02 09:41 | Neurology Consultation ---
Neurology Consultation Date of Consultation: Oct 02, 2016. Attending Physician: Barb Wei MD Primary Care Physician: No Doctor, Assigned Reason for Consultation: Patient is a 61-year-old, who was asked to see the request of Dr. eWi, for neurologic consultation regarding myasthenia gravis. History of Present Illness Source: patient, clinic records, hospital records Result this patient 1995 for chronic low back pain which she had had for 10 years in addition to radicular symptoms in his right greater than left leg. At that time he had a right L4 radiculopathy, mild bilateral carpal tunnel syndromes, and a very mild left ulnar neuropathy at the wrist. He had diffuse arthralgias. Amitriptyline did not help. I last saw him in 1996. He tells me he has been following in the [facility] system ever since. He has had problems with hepatitis C for the last 20 some years and has hepatic cirrhosis. He was treated in 2014 for hepatitis C and he believes that he is now cured. Unfortunately, he still has hepatic issues and has had considerable edema. He also has renal insufficiency. In 2011 he was admitted for significant headaches and saw Dr. Mills. He was diagnosed with hypertension related headaches and an MRI of the brain was unremarkable. In 2013 he was admitted with hypertensive encephalopathy. Patient tells me that about 5 or 6 years ago he was working and lost his vision for some temporary amount of time. Following this she's had intermittent double vision and poor vision. He ended up seeing an eye doctor about 2 years ago. This eye doctor did some sort of muscle surgery in the right eye, and then 2 months later muscle surgery on the left eye. This surgeries did not fix his double vision. The patient has intermittent double vision on a daily basis. He can wake up with it or can occur at any time during the day. It may be a little worse. He is tired or he focuses too long on an object. He does not remember any droopy eyelids and does not remember any choking on liquids or solids. He swallows well. More recently he's had some shortness of breath but he has gained a lot of fluid and had some increased edema. The patient saw a physician at the [facility] towards the end of the summer who did electrical studies and ended up thinking that the patient probably had myasthenia gravis. Some laboratory studies apparently were unremarkable but I don't have any of these results. He waited several months not hearing and after double checking the [place] physician decided to a trial of Mestinon. 2 weeks ago he started 60 mg once a day for 1 week and then over the last week he has been taking 60 mg twice a day. His double vision has not improved and he has side effects of nausea and ill feeling on the medication. He is also had some diarrhea. On September 30, he was admitted to our hospital for 4-5 days of shortness of breath and left shoulder and chest pain. He had a 30 pound weight gain. Vital signs on admission were unremarkable. A chest x-ray was negative as well. He was noted on laboratory studies to have some renal insufficiency and is now seen by Dr. Baldwin. He has some mild anemia but the rest of his chemistry profile was unremarkable. CK on admission was 447 and now is 338. Since his been of the hospital, he was lost some fluid and has no shortness of breath this morning. He still has some intermittent double vision depending on how he looks but he has no vision loss, weakness or numbness in the limbs, choking or swallowing problems. Past Medical/Surgical History Medical Problems: (1) Peripheral edema Status: Acute (2) Precordial chest pain Status: Acute (3) Renal failure Status: Acute (4) SOB (shortness of breath) Status: Acute Chronic low back pain with history of radiculopathy. Patient has right thigh numbness of a chronic nature. History of ADHD Hypertension Gastroesophageal reflux disease History of hepatitis C treated successfully in 2014 but with chronic cirrhosis Chronic edema Post left hernia repair age 10. Post eye muscle surgery 2 years ago bilaterally Family History No significant or contributory medical family history Social History The patient worked for many years working with [employer]. He had stopped 5 years ago when his vision became poor. 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 Smoking Status: Never smoker Smokeless Tobacco Use: No Alcohol Use: none Drug Use: none Marital Status: Housing Status: lives with family Occupation Status: employed Allergies Coded Allergies: Codeine (Verified Adverse Reaction, Mild, "MAKES ME GOOFEY", 09/30/16) Current Inpatient Medications Current Inpatient Medications Medications (Trade) Dose Ordered Sig/Elliot Route Start Time Stop Time Status Last Admin Dose Admin Cyanocobalamin (Vitamin B-12 Tab) 500 mcg DAILY PO 10/01/16 09:00 10/31/16 08:59 10/02/16 08:16 500 MCG Gabapentin (Neurontin Cap) 200 mg TID PO 10/01/16 09:00 10/31/16 08:59 10/02/16 08:18 200 MG Labetalol HCl (Normodyne Tab) 100 mg BID PO 10/01/16 09:00 10/31/16 08:59 10/02/16 08:18 100 MG Pantoprazole Sodium (Protonix Tab) 40 mg QAM PO 10/01/16 09:00 10/31/16 08:59 10/02/16 08:15 40 MG Pyridostigmine [place] (Mestinon Tab) 60 mg BID PO 10/01/16 09:00 10/03/16 21:01 10/02/16 08:15 60 MG Ranitidine HCl (zANTac TAB) 150 mg BID PRN PO 09/30/16 22:45 10/30/16 22:44 10/02/16 08:16 150 MG Acetaminophen (Tylenol Tab) 650 mg Q4H PRN PO 09/30/16 22:45 10/30/16 22:44 Al Hydrox/Mg Hydrox/Simethicone (Maalox Max Susp) 15 ml Q4H PRN PO 09/30/16 22:45 10/30/16 22:44 Magnesium Hydroxide (Milk Of Magnesia Susp) 30 ml Q12H PRN PO 09/30/16 22:45 10/30/16 22:44 Ondansetron HCl (Zofran Inj) 4 mg Q6H PRN IV 09/30/16 22:45 10/30/16 22:44 Nitroglycerin (Nitrostat Tab) 0.4 mg UD PRN SL 09/30/16 22:45 10/30/16 22:44 Morphine Sulfate (MoRPHine SULFATE INJ) 2 mg Q30M PRN IV 09/30/16 22:45 10/14/16 22:44 Polyethylene (Miralax Powder Packet) 17 gm DAILY PRN PO 09/30/16 22:45 10/30/16 22:44 Pyridostigmine [place] (Mestinon Tab) 60 mg TID PO 10/04/16 09:00 10/10/16 21:01 Pyridostigmine [place] (Mestinon Tab) 60 mg QID PO 10/11/16 09:00 11/10/16 08:59 Furosemide (Lasix tab) 40 mg QAM PO 10/02/16 09:00 11/01/16 08:59 10/02/16 08:18 40 MG Spironolactone (Aldactone Tab) 100 mg QAM PO 10/02/16 09:00 11/01/16 08:59 10/02/16 08:18 100 MG Review of Systems Constitutional: No fatigue, No fever, No weakness Eyes: + diplopia, No worsening of vision ENT: No sore throat, No tinnitus, No trouble swallowing Respiratory: No cough, No shortness of breath Cardiovascular: No chest pain, No palpitations Abdomen: + nausea, No pain Musculoskeletal: + joint pain, No muscle pain Genitourinary - Male: No dysuria, No urinary incontinence Neurologic: No balance problems, No memory loss, No numbness/tingling, No weakness Psychiatric: No anxiety, No depression symptoms Endocrine: No fatigue Hematologic / Lymphatic: No abnormal bleeding/bruising Integumentary: No rash Allergic / Immunologic: No hives Physical Exam Vital Signs (Past 24 Hrs): Date Time Temp Pulse Resp B/P Pulse Ox O2 Delivery O2 Flow Rate FiO2 10/02/16 08:01 37.0 60 20 142/74 94 Room Air 10/02/16 04:00 96 Room Air 10/02/16 02:57 36.3 54 20 126/69 96 Room Air 10/02/16 00:00 96 Room Air 10/01/16 23:22 36.8 53 24 126/68 96 Room Air 10/01/16 20:00 Room Air 10/01/16 19:22 37.1 58 19 118/67 96 Room Air 10/01/16 16:00 Room Air 10/01/16 14:56 36.9 54 20 143/73 97 Room Air 10/01/16 12:00 Room Air 10/01/16 11:32 37.0 57 18 124/66 96 Room Air Patient is right-handed. The patient is awake and alert. Speech is normal without aphasia or dysarthria. Mentation and thought processes are intact with orientation and normal fund of knowledge. Mood and affect are normal and appropriate. Appearance and grooming are normal. The discs are sharp with positive venous pulsations. There are no exudates, hemorrhages, or blood vessel changes seen. Pupils are 4mm bilaterally and reactive to light. Extraocular eye muscles are intact without nystagmus. I note no disconjugate gaze. The patient states he has double vision looking in certain directions but this is not consistent. When I cover his left eye, keeping both eyes open, he has double vision in the right eye off in different directions. This is reproducible and consistent. He does not have this in the left eye. Visual acuity and visual clay seem normal grossly to confrontation. Patient has no ptosis and nothing worse with sustained upgaze. There are no deficits to sensation of the face bilaterally. Corneal reflexes are positive bilaterally. Facial strength and symmetry is normal bilaterally. Hearing seems intact grossly to voice and finger rub. Palate moves well without asymmetry. There is normal sternocleidomastoid and trapezius strength bilaterally. Tongue is midline with good strength bilaterally. Neck is with full range of motion without discomfort. There are no cervical bruits. There are no cranial or ocular bruits. Heart is without murmur. Cervical, thoracic, and lumbar spine are nontender to palpation. Gait is normal. There is good are swing, turn, stance, and balance. With outstretched arms there is no drift. There are no resting, postural, or action tremors. There is no ataxia with [id number] testing. There is good facility in the hands. There are no abnormal involuntary movements noted. Motor strength is 5/5 diffusely in the arms bilaterally including deltoids, biceps, brachioradialis, wrist flexors and extensors, avionic technician, and intrinsic hand muscles. Motor strength is 5/5 diffusely in the legs bilaterally including hip flexors, quadriceps, hamstring, gastrocnemius, tibialis anterior, tibialis posterior, and peroneii muscles bilaterally. Toe extensors are normal and there is good bulk in the extensor digitorum brevis muscle bilaterally. The limbs have good tone without rigidity or spasticity, and there is no atrophy noted. Muscle bulk is normal, there is no tenderness, no myotonia noted to percussion, and no fasciculations seen. Sensory examination is intact to pin and touch throughout all four limbs. Reflexes are 1/4 in the biceps, triceps, brachioradialis, quadriceps, and Achilles tendons bilaterally. Toes are downgoing with plantar stimulation bilaterally. Peripheral pulses are present and of normal quality distally in all four limbs. There is no peripheral edema noted. Laboratory Results Past 24 Hours: 10/02/16 05:21 10/02/16 05:21 Test 10/01/16 12:20 10/01/16 13:45 10/02/16 05:21 Urine Random Creatinine 73.0 mg/dl Urine Random Total Protein 10.6 mg/dl (0-11.9) Urine Protein/Creatinine Ratio 0.2 (0-0.2) Red Blood Count 3.72 M/uL (4.7-6.1) Mean Corpuscular Volume 89.2 fL (80-100) Mean Corpuscular Hemoglobin 30.6 pg (25-34) Mean Corpuscular Hemoglobin Concent 34.3 g/dl (32-36) RDW Standard Deviation 43.8 fL (36.4-46.3) RDW Coefficient of Variation 13.5 % (11.5-14.5) Mean Platelet Volume 11.1 fL (7.4-10.4) Prothrombin Time 12.3 SECONDS (9.0-12.0) Prothromb Time International Ratio 1.1 (0.9-1.1) Anion Gap 7.0 mmol/L (3-11) Est Creatinine Clear Calc Drug Dose 65.0 ml/min Estimated GFR () 46.1 Estimated GFR (Non- 39.7 BUN/Creatinine Ratio 20.9 (10-20) Calcium Level 8.8 mg/dl (8.5-10.1) Total Bilirubin 0.6 mg/dl (0.2-1) Direct Bilirubin < 0.1 mg/dl (0-0.2) Aspartate Amino Transf (AST/SGOT) 17 U/L (15-37) Alanine Aminotransferase (ALT/SGPT) 18 U/L (12-78) Alkaline Phosphatase 70 U/L (45-117) Total Protein 7.4 gm/dl (6.4-8.2) Albumin 3.6 gm/dl (3.4-5.0) Impression 1. History of myasthenia gravis. Apparently he had some electrical findings were suggestive myasthenia gravis although on examination currently I do not see any focal or fluctuating weakness. He states that he has double vision in the right eye a monocular nature. This is not neurologic. I see no disconjugate gaze or other focal cranial nerve weaknesses. He has initiated Mestinon and is at 60 mg twice a day with no improvement. In addition he has side effects to the medication. He did have shortness of breath on admission, but this is resolved today with treatment Currently he has no focal neurologic findings, meningeal signs, or encephalopathy. 2. Cirrhosis secondary to previous hep C infection 3. Renal failure, mild He is followed by nephrology 4. Chronic low back pain with radicular symptoms still on the right leg, possibly L3 or L4. He has right thigh numbness. Plan 1. Obtain old records regarding his myasthenia from the OR in [place] who should have the records from [place]. I would like to obtain laboratory studies and EMG results. 2. I since we are uncertain about the presence of myasthenia gravis and he has side effects to Mestinon, I recommend holding Mestinon for now. 3. MRI of the brain. He has renal insufficiency although I prefer with and without contrast. 4. CT scan of the chest to look for thymoma, again, prefer with and without contrast. 5. Acetylcholine receptor antibody titers including binding, blocking, and modulating antibodies, if not done recently. I spoke to Dr. Wei regarding this case including differential diagnosis and treatment options. I will follow.
[2016-10-02] MEDS ORDERED: DOCUSATE SODIUM 100 MG CAP PO ONE (10:19)
--- NOTE | 2016-10-02 10:24 | Nephrology Progress Note ---
Nephrology Progress Note Date of Service Oct 02, 2016. Chief Complaint Evaluation of renal insufficiency in this patient admitted with chest pain, abdominal and lower extremity edema Subjective Mr. Cassidy was seen & examined in the PCU this morning. He reports brisk diuresis in response to IV furosemide and spironolactone. His peripheral edema and abdominal distention are subjectively improved. The patient has renal insufficiency. Medical records from the [facility] are not yet available. Baseline creatinine is unknown. Serum creatinine is trending down with diuretic therapy. Mr. Cassidy has ascites w/ LE edema. He is hepatitis C +. Abdominal CT revealed hepatic cirrhosis. The patient has longstanding arterial HTN. Blood pressure remains acceptable at this time. Review of Systems Constitutional: No fever Cardiovascular: No chest pain Respiratory: No dyspnea at rest Abdomen: + problem reported (abdominal distention), No pain Genitourinary - Male: No foamy urine, No gross hematuria Extremities: + leg edema A complete review of systems was performed. Pertinent positives are noted above. All other systems are negative. Vital Signs Last 8 Hrs Date Time Temp Pulse Resp B/P Pulse Ox O2 Delivery O2 Flow Rate FiO2 10/02/16 08:01 37.0 60 20 142/74 94 Room Air 10/02/16 08:00 96 Room Air 10/02/16 04:00 96 Room Air 10/02/16 02:57 36.3 54 20 126/69 96 Room Air I & O 24-Hour Column 10/02/16 08:00 Intake Total 1225 ml Output Total 4125 ml Balance -2900 ml Last Recorded Weight Weight (Kilograms): 137.100 Physical Exam General Appearance: no apparent distress Head: normocephalic, atraumatic Eyes: PERRL, EOMI Neck: supple, no adenopathy, no JVD Respiratory/Chest: lungs clear Cardiovascular: regular rate, rhythm Abdomen/GI: normal bowel sounds, non tender, + distended Extremities/Musculoskelatal: + pedal edema (2+ pretibial pitting edema) Neurologic/Psych: alert, oriented x 3 Family History Diabetes mellitus FH: cancer FH: heart disease FH: lung disease Hypertension Negative for CKD/ESRD Social History Smoking Status: Never smoker Smokeless Tobacco Use: No Alcohol Use: none Drug Use: none Marital Status: Housing Status: lives with family Occupation: employed Single. Unemployed. Never a smoker. Denies alcohol use. Laboratory Results Past 24 Hours 10/02/16 05:21 10/02/16 05:21 Test 10/01/16 12:20 10/01/16 13:45 10/02/16 05:21 10/02/16 10:00 Urine Random Creatinine 73.0 mg/dl Urine Random Total Protein 10.6 mg/dl (0-11.9) Urine Protein/Creatinine Ratio 0.2 (0-0.2) Red Blood Count 3.72 M/uL (4.7-6.1) Mean Corpuscular Volume 89.2 fL (80-100) Mean Corpuscular Hemoglobin 30.6 pg (25-34) Mean Corpuscular Hemoglobin Concent 34.3 g/dl (32-36) RDW Standard Deviation 43.8 fL (36.4-46.3) RDW Coefficient of Variation 13.5 % (11.5-14.5) Mean Platelet Volume 11.1 fL (7.4-10.4) Prothrombin Time 12.3 SECONDS (9.0-12.0) Prothromb Time International Ratio 1.1 (0.9-1.1) Anion Gap 7.0 mmol/L (3-11) Est Creatinine Clear Calc Drug Dose 65.0 ml/min Estimated GFR () 46.1 Estimated GFR (Non- 39.7 BUN/Creatinine Ratio 20.9 (10-20) Calcium Level 8.8 mg/dl (8.5-10.1) Total Bilirubin 0.6 mg/dl (0.2-1) Direct Bilirubin < 0.1 mg/dl (0-0.2) Aspartate Amino Transf (AST/SGOT) 17 U/L (15-37) Alanine Aminotransferase (ALT/SGPT) 18 U/L (12-78) Alkaline Phosphatase 70 U/L (45-117) Total Protein 7.4 gm/dl (6.4-8.2) Albumin 3.6 gm/dl (3.4-5.0) Allergies Coded Allergies: Codeine (Verified Adverse Reaction, Mild, "MAKES ME GOOFEY", 09/30/16) Medications Current Inpatient Medications Medications (Trade) Dose Ordered Sig/Elliot Route Start Time Stop Time Status Last Admin Dose Admin Cyanocobalamin (Vitamin B-12 Tab) 500 mcg DAILY PO 10/01/16 09:00 2/4/17 08:59 10/02/16 08:16 500 MCG Gabapentin (Neurontin Cap) 200 mg TID PO 10/01/16 09:00 10/31/16 08:59 10/02/16 08:18 200 MG Labetalol HCl (Normodyne Tab) 100 mg BID PO 10/01/16 09:00 10/31/16 08:59 10/02/16 08:18 100 MG Pantoprazole Sodium (Protonix Tab) 40 mg QAM PO 10/01/16 09:00 10/31/16 08:59 10/02/16 08:15 40 MG Ranitidine HCl (zANTac TAB) 150 mg BID PRN PO 09/30/16 22:45 10/30/16 22:44 10/02/16 08:16 150 MG Acetaminophen (Tylenol Tab) 650 mg Q4H PRN PO 09/30/16 22:45 10/30/16 22:44 Al Hydrox/Mg Hydrox/Simethicone (Maalox Max Susp) 15 ml Q4H PRN PO 09/30/16 22:45 10/30/16 22:44 Magnesium Hydroxide (Milk Of Magnesia Susp) 30 ml Q12H PRN PO 09/30/16 22:45 10/30/16 22:44 Ondansetron HCl (Zofran Inj) 4 mg Q6H PRN IV 09/30/16 22:45 10/30/16 22:44 Nitroglycerin (Nitrostat Tab) 0.4 mg UD PRN SL 09/30/16 22:45 10/30/16 22:44 Morphine Sulfate (MoRPHine SULFATE INJ) 2 mg Q30M PRN IV 09/30/16 22:45 10/14/16 22:44 Polyethylene (Miralax Powder Packet) 17 gm DAILY PRN PO 09/30/16 22:45 10/30/16 22:44 Furosemide (Lasix tab) 40 mg QAM PO 10/02/16 09:00 11/01/16 08:59 10/02/16 08:18 40 MG Spironolactone (Aldactone Tab) 100 mg QAM PO 10/02/16 09:00 11/01/16 08:59 10/02/16 08:18 100 MG Impression (1) Renal failure (2) Cirrhosis (3) Hepatitis C (4) Precordial chest pain (5) Hypertension Renal impairment. Urine sediment is acellular. Urinary protein was negative by dipstick. Abdominal CT was negative for obstruction. Patient's last creatinine value in EMR was 2012. Creatinine was 1.0 at that time. Patient's history is significant for Hepatitis C + and cirrhosis. He was admitted for evaluation of chest discomfort, orthopnea and progressive abdominal ascites and lower extremity edema. Recommendations ACUTE KIDNEY INJURY: -- Creatinine is trending down in response to IV diuretic therapy -- Urine sediment was benign. Urinary protein was within normal limits -- Renal US report reviewed today: 10.5 cm kidneys with moderate cortical scarring. No hydronephrosis CHRONIC KIDNEY DISEASE: -- Outpatient serum creatinine values and last office note requested from [facility]. Awaiting reports. HYPERTENSION: -- Hold amlodipine (LE edema), chlorthalidone and lisinopril -- Continue labetalol, lasix & spironolactone CIRRHOSIS: -- Await Hep C testing results -- Recommend consultation w/ gastroenterology EDEMA: -- Diuretics as outlined above -- Echocardiogram report 10/01/15 reviewed: preserved LVEF. No valvular heart disease MYASTHENIA: -- Evaluation as per neurology
--- NOTE | 2016-10-02 10:48 | Hospitalist Progress Note ---
Hospitalist Progress Note Date of Service Oct 02, 2016. Subjective Pt evaluation today including: conversation w/ patient, physical exam, chart review, lab review, review of studies, conversation w/ industry consultant (Cardio and Neuro) PO Intake: NPO for procedure Voiding: no voiding problems Pt feeling so much better today since receiving lasix and aldactone yesterdya. Legs even less swollen, abd feels better, no more SOB or chest pains. He ambulated out in the hallway this AM and felt much improved. He feels he can now do an exercise stress Constitutional: No fever Eyes: + diplopia Respiratory: No dyspnea on exertion, No shortness of breath Cardiovascular: No chest pain Abdomen: + constipation, No pain Musculoskeletal: No problem reported Male : No problem reported Neurologic: No balance problems, No weakness Psychiatric: No problem reported Heme: No problem reported Endo: No problem reported Skin: No rash All Other Systems: Reviewed and Negative Objective Vital Signs Date Time Temp Pulse Resp B/P Pulse Ox O2 Delivery O2 Flow Rate FiO2 10/02/16 08:01 37.0 60 20 142/74 94 Room Air 10/02/16 08:00 96 Room Air 10/02/16 04:00 96 Room Air 10/02/16 02:57 36.3 54 20 126/69 96 Room Air 10/02/16 00:00 96 Room Air 10/01/16 23:22 36.8 53 24 126/68 96 Room Air 10/01/16 20:00 Room Air 10/01/16 19:22 37.1 58 19 118/67 96 Room Air 10/01/16 16:00 Room Air 10/01/16 14:56 36.9 54 20 143/73 97 Room Air 10/01/16 12:00 Room Air 10/01/16 11:32 37.0 57 18 124/66 96 Room Air Physical Exam General Appearance: WD/WN, no apparent distress, + obese Eyes: normal inspection, sclerae normal ENT: hearing grossly normal Neck: + pertinent finding (obese) Respiratory/Chest: lungs clear, normal breath sounds, no respiratory distress, no accessory muscle use Cardiovascular: regular rate, rhythm, no gallop, no murmur, + pertinent finding (1-2+ pitting edema legs to knees bilat improved from previous) Abdomen: normal bowel sounds, non tender, soft (but distended) Extremities: non-tender, no calf tenderness Neurologic/Psychiatric: alert, normal mood/affect, oriented x 3 Skin: normal color, warm/dry Laboratory Results Last 24 Hours Test 10/01/16 12:20 10/01/16 13:45 10/02/16 05:21 10/02/16 10:00 Urine Random Creatinine 73.0 mg/dl Urine Random Total Protein 10.6 mg/dl Urine Protein/Creatinine Ratio 0.2 White Blood Count 5.42 K/uL Red Blood Count 3.72 M/uL Hemoglobin 11.4 g/dL Hematocrit 33.2 % Mean Corpuscular Volume 89.2 fL Mean Corpuscular Hemoglobin 30.6 pg Mean Corpuscular Hemoglobin Concent 34.3 g/dl RDW Standard Deviation 43.8 fL RDW Coefficient of Variation 13.5 % Platelet Count 105 K/uL Mean Platelet Volume 11.1 fL Prothrombin Time 12.3 SECONDS Prothromb Time International Ratio 1.1 Sodium Level 142 mmol/L Potassium Level 3.7 mmol/L Chloride Level 109 mmol/L Carbon Dioxide Level 26 mmol/L Anion Gap 7.0 mmol/L Blood Urea Nitrogen 38 mg/dl Creatinine 1.80 mg/dl Est Creatinine Clear Calc Drug Dose 65.0 ml/min Estimated GFR () 46.1 Estimated GFR (Non- 39.7 BUN/Creatinine Ratio 20.9 Random Glucose 96 mg/dl Calcium Level 8.8 mg/dl Total Bilirubin 0.6 mg/dl Direct Bilirubin < 0.1 mg/dl Aspartate Amino Transf (AST/SGOT) 17 U/L Alanine Aminotransferase (ALT/SGPT) 18 U/L Alkaline Phosphatase 70 U/L Total Protein 7.4 gm/dl Albumin 3.6 gm/dl Assessment and Plan Pt is a 61 yo male with a h/o HTN, Hep C (treated), recent dx of Myasthenia Gravis diagnosed after having diplopia and an EMG of the neck and face. He was started on Mestinon about 1-2 weeks ago. He reports about 4-5 days ago he started noticing SOB that was progressively worse. There was also some left shoulder pain that then radiated across his left chest over to the right chest and was fairly severe, associated with the SOB. When he would stop and rest, the SOB would improve. The CP came and went over the last few days but his biggest complaint is the progressively worsening SOB over the last 4-5 days that got so bad he came to the ER. Looking back, he does think he has had some mild SOB over the last year. He also has had about a 30 lb weight gain and abd distension and was found to have cirrhosis on imaging performed here in the ER. He does note his plts have been a little low over the past few years at the [facility] where he gets his care. He was treated for Hep C successfully in 2014. He has never had a cardiac stress test. He reports his BP was previously significantly elevated nad was admitted here in 2-14 fo rthis but since taking meds, it has improved. He was never a smoker. His CXR here is clear, his ECHO shows grade 1 diastolic dysfunction and LVH but otherwise normal LV fxn and valves. He is unsure if he had renal failure in the past and we are now awaiting his [facility] to see what baseline veterinary physiologist is. His legs have been largely swollen over the last 6-8 months and he reports today is the first time he has seen his ankles in 8 months after receiving one dose of lasix and aldactone. No more CP since being here. Trop neg x 2, ECG normal. He had been prescribed a 2 week course of a potent diuretic he describes in addition to his current Lasix and Chlorthalidone for worsening LE edema recently , however this did not lead to improvement and was D/Cd possibly in favor of doubling his Lasix. Edema, CKD stage III with probable RENÉE - worsening LE edema and possibly ascites , on several diuretics and ACEI. Chimney Repairer 2.3 on admission. Cause could be from cirrhosis although albumin is WNL. Abd CT shows cirrhosis and some perinephric edema, UA to negative for protein. ECHO with grade 1 diastolic dysfunction and LVH, preserved LVEF. Renal US with cortical thinning, no obstruction Much improved on lasix 40mg daily and aldactone 100mg daily combo. Edema decreased, veterinary physiologist down to 1.8 -Nephrology consulted and appreciate recommendations -follow PRP -continue lasix 40mg daily and aldactone 100mg daily -stopped amlodipine (due to peripheral edema) and lisinopril as per Nephro CP, SOB, Myasthenia gravis by report, on Mestinon x 1-2 week - CK/MB elevated with normal trop and normal EKG. Second troponin negative. I believe his worsening SOB is related to his MG or possibly as an adverse side effect of his Mestinon as it did seem to worsen significantly after starting this med. SOB and CP resolved after diuresis. For Suspect MG---> d/w Neuro in depth: need to obtain previous records, unclear if truly has MG, needs further eval. -consult Cardiology for eval for appropriate stress testing given risk factors and anginal type chest pain--> initially not able to exercise due to significant CHASE and Myasthenia, but now likely can exercise given improved SOB-- -> d/w Cardio and will do stress ECHO -Consult Neuro to assist with management and further workup for MG much appreciated -stop Mestinon for now until diagnosis clarified -[facility] and [facility] records dx of MG -check Ach receptor antibodies -check CT chest to assess for thymoma (w/o contrast due to poor renal function) -needs Brain MRI with contrast so will hold off until renal function improves hopefully Cirrhosis, h/o treated Hep C, thrombocytopenia- INR 1.1-1.2, plts 105, LFTs normal, cirrhosis on CT with some ascites. No evidence clinically of varices or h/o GI bleeding. -started lasix and aldactone -consult GI for further eval and correction management -constipation to be treated with docusate for now, but could add lactulose HTN - Normotensive -continue labetalol, diuretics Full code - Anticoagulation held pending eval for cirrhosis, TEDs
--- NOTE | 2016-10-02 11:00 | DIAGNOSTIC IMAGING REPORT ---
CT OF THE CHEST WITHOUT IV CONTRAST CLINICAL HISTORY: Myasthenia gravis COMPARISON STUDY: Chest x-ray dated 09/30/2016 CT DOSE: 986.56 mGy.cm TECHNIQUE: CT of the thorax was performed from the thoracic inlet to the lung bases. Images are reviewed in the axial, sagittal, and coronal planes. IV contrast was not administered for this examination. FINDINGS: Thyroid: Imaged portions of the thyroid gland are normal in appearance. Thoracic aorta: The ascending thoracic aorta measures 39 mm. Heart: There are coronary artery calcifications. There are pericardial calcifications. Lungs and pleural spaces: There are no pleural effusions. There are dependent atelectatic changes. There is no focal pulmonary consolidation. There are few scattered tiny point nodules, none of which exceed 2 mm. Mediastinum: There is no mediastinal lymphadenopathy. There are no anterior mediastinal masses to indicate a thymoma. Ngozi: There is no evidence of pathologic adenopathy given the limitations of a noncontrast study Axilla: Clear. Upper abdomen: Cholelithiasis. The liver has a slightly serrated serosal surface. This may indicate cirrhosis. The spleen is mildly enlarged Skeletal structures: There are no lytic or blastic osseous lesions. IMPRESSION: 1. No CT evidence of a thymoma 2. No evidence of focal pulmonary consolidation 3. Possible hepatic cirrhosis. Mild splenomegaly. 4. Cholelithiasis Electronically signed by: Bob Briceno M.D. 10/02/2016 10:58 AM Dictated Date/Time: 10/02/2016 10:54 AM
--- NOTE | 2016-10-02 13:10 | Gastrointestinal Consultation ---
Gastrointestinal Consultation Date of Consultation: Oct 02, 2016 Attending Physician: Dr. Bedoya, [place] [facility] [place]ing Physician: Dr. Silva Reason for Consultation: Cirrhosis History of Present Illness Patient is a 61 year old male patient of the [facility] with a hx of Hep C cirrhosis, HTN, GERD who presented to [facility] ED on Wednesday10/02/2016 for chest pain, also with c/o SOB and increasing peripheral edema. Cardiac events have been ruled out. Nephrology is on board for renal insufficiency on arrival. GI is consulted today for cirrhosis. He carries a hx of Hep C, dx'ed in the . At the time of dx, he was told that he had cirrhosis. He saw [facility] [place], then later [facility]" at that time and underwent tx with interferon then an experimental medicine, having to discontinue due to poor tolerance of the medicine ("went crazy on these meds"). He stopped seeing hepatology due to insurance issues. He reestablished medical care for HTN at the [facility] in [place] about 4 yrs ago. Then he saw the [facility] and successfully completed Hep C tx in Sep 2014 with clearance of the virus at that time and checked again recently with continued clearance. Pt denies any hx of complications of cirrhosis: no melena, hematochezia, though he admits to a "bit of a memory problem," but was never told that he has hepatic encephalopathy. Though he oes not recall ever having an EGD, a review of [facility] records shows that he underwent EGD at the [facility] in March 2014 and another EGD with Dr. Blackwood on 01/14/15, both w/o evidence of esophageal varices and no other abnormalities. There is also a record of a normal colonosocpy 01/15/[address] Blackwodo with two diminutive polyps, no other issues. The pt tells me that he rarely drinks any alcohol but admits to being a heavy drinker about 40 yrs ago. Although there is a record of being seen in hepatology clinic in [place] in 2002, he has not otherwise been followed in our OP GI clinic. Regarding his c/o increasing peripheral edema: this began about 3 months ago and got much worse about 3 weeks ago. He was recently put on diuretics from the [facility]: Lasix 40mg BID and 3 doses of chlorthalidone 25mg. He has gained about 30 lbs in the past 3 months, most of this in the past 3 weeks. He denies any increased confusion, weakness, melena or hematochezia. On arrival, he underwent CT of the abdomen with cirrhosis and cholelithiasis. There was also a mention of a calcification in the pancreatic head. He denies any recent significant abdominal pain. There is cirrhosis and suggestion of portal HTN on US, no biliary ductal dilation. He presented with renal insufficiency on arrival with Cr 2.3, now improved to 1.8. Ammonia was 38 on arrival, now 21. LFTs including bilirubin have been normal. SOB has resolved and edema is decreasing since admission. CBC is with mild anemia and thrombocytopenia: Hb 11.4, platelets 123, INR is 1.1. Echocardiogram with 65% EF. He is awake, alert, oriented and hemodynamically stable. Past Medical/Surgical History Medical Problems: (1) Peripheral edema Status: Acute (2) Precordial chest pain Status: Acute (3) Renal failure Status: Acute (4) SOB (shortness of breath) Status: Acute Past Medical History: 1. HTN 2. Hep C cirrhosis 3. Lumbar DDD 4. GERD Past Surgical History: No prior surgeries. See HPI for hx of EGDs, colonoscopy. Family History Diabetes mellitus FH: cancer FH: heart disease FH: lung disease Hypertension Social History Smoking Status: Never Smoker Alcohol Use: none Drug Use: none Marital Status: Housing Status: lives with family Occupation Status: employed Allergies Coded Allergies: Codeine (Verified Adverse Reaction, Mild, "MAKES ME GOOFEY", 09/30/16) Current Medications Home Meds and Scripts Medications Dose Route/Sig Max Daily Dose Days Date Category Dose Instructions Vitamin B-12 (Cyanocobalamin) 500 Mcg Tab 500 Mcg PO DAILY 09/30/16 Reported Zantac (Ranitidine HCl) 150 Mg Tab 150 Mg PO BID PRN 09/30/16 Reported Normodyne (Labetalol Hcl) 100 Mg Tab 100 Mg PO BID 09/30/16 Reported Amlodipine Besylate 5 Mg Tab 5 Mg PO DAILY 09/30/16 Reported Lasix (Furosemide) 40 Mg Tab 40 Mg PO BID 09/30/16 Reported Zestril (Lisinopril) 30 Mg Tab 30 Mg PO DAILY 09/30/16 Reported Protonix (Pantoprazole Sodium) 40 Mg Tab 40 Mg PO QAM 09/30/16 Reported Neurontin (Gabapentin) 100 Mg Cap 200 Mg PO TID 09/30/16 Reported Mestinon (Pyridostigmine [place]) 60 Mg Tab 60 Mg PO UD 09/30/16 Reported TAKE 1 TAB DAILY FOR 7 DAYS, THEN 1 TAB BID FOR 7 DAYS, THEN 1 TAB TID FOR 7 DAYS THEN 1 TAB QID Klor-Con M20 (Potassium Chloride) 20 Meq Tabcr 20 Meq PO BID 09/30/16 Reported Chlorthalidone 25 Mg Tab 25 Mg PO QAM 11/22/13 Rx Review of Systems Constitutional: No chills, No fever, No sweats, No weakness, No weight loss Eyes: No eye pain, No redness ENT: No pain on swallowing, No sore throat, No trouble swallowing Respiratory: No cough, No dyspnea on exertion, No shortness of breath, No wheezing Cardiac: + chest pain (now resolved), + edema (improved), No palpitations Abdomen: + see HPI Neuro: No balance problems, No memory loss, No numbness/tingling, No vertigo, No weakness Psych: No anxiety, No depression symptoms, No insomnia Heme: No abnormal bleeding/bruising, No night sweats Endo: No excessive thirst, No excessive urination Skin: No itch, No jaundice, No new/changing skin lesions, No rash Physical Exam Date Time Temp Pulse Resp B/P Pulse Ox O2 Delivery O2 Flow Rate FiO2 10/02/16 12:30 Room Air 10/02/16 12:07 36.6 50 18 152/81 96 Room Air 10/02/16 08:01 37.0 60 20 142/74 94 Room Air 10/02/16 08:00 96 Room Air 10/02/16 04:00 96 Room Air 10/02/16 02:57 36.3 54 20 126/69 96 Room Air 10/02/16 00:00 96 Room Air 10/01/16 23:22 36.8 53 24 126/68 96 Room Air 10/01/16 20:00 Room Air 10/01/16 19:22 37.1 58 19 118/67 96 Room Air 10/01/16 16:00 Room Air 10/01/16 14:56 36.9 54 20 143/73 97 Room Air General Appearance: no apparent distress Eyes: normal inspection, EOMI ENT: pharynx normal Neck: supple, no adenopathy, thyroid normal, no JVD Respiratory/Chest: chest non-tender, lungs clear, normal breath sounds, no accessory muscle use Cardiovascular: regular rate, rhythm, no JVD, no murmur Abdomen: normal bowel sounds, non tender, soft, no organomegaly, + pertinent finding (on exam, seems to have fluid shift, but US w/o ascites) Extremities: normal inspection, normal capillary refill, + pedal edema (2+ edema of both lower extremities to the knees. ) Neurologic/Psych: alert, normal mood/affect, oriented x 3 Skin: normal color, no jaundice, warm/dry, no rash Laboratory Results Last 24 Hours Test 10/01/16 13:45 10/02/16 05:21 10/02/16 11:10 Urine Random Creatinine 73.0 mg/dl Urine Random Total Protein 10.6 mg/dl Urine Protein/Creatinine Ratio 0.2 White Blood Count 5.42 K/uL Red Blood Count 3.72 M/uL Hemoglobin 11.4 g/dL Hematocrit 33.2 % Mean Corpuscular Volume 89.2 fL Mean Corpuscular Hemoglobin 30.6 pg Mean Corpuscular Hemoglobin Concent 34.3 g/dl RDW Standard Deviation 43.8 fL RDW Coefficient of Variation 13.5 % Platelet Count 105 K/uL Mean Platelet Volume 11.1 fL Prothrombin Time 12.3 SECONDS Prothromb Time International Ratio 1.1 Sodium Level 142 mmol/L Potassium Level 3.7 mmol/L Chloride Level 109 mmol/L Carbon Dioxide Level 26 mmol/L Anion Gap 7.0 mmol/L Blood Urea Nitrogen 38 mg/dl Creatinine 1.80 mg/dl Est Creatinine Clear Calc Drug Dose 65.0 ml/min Estimated GFR () 46.1 Estimated GFR (Non- 39.7 BUN/Creatinine Ratio 20.9 Random Glucose 96 mg/dl Calcium Level 8.8 mg/dl Total Bilirubin 0.6 mg/dl Direct Bilirubin < 0.1 mg/dl Aspartate Amino Transf (AST/SGOT) 17 U/L Alanine Aminotransferase (ALT/SGPT) 18 U/L Alkaline Phosphatase 70 U/L Total Protein 7.4 gm/dl Albumin 3.6 gm/dl Impression Patient is a 61 year old male with Hep C cirrhosis, post tx having cleared the virus. His increased peripheral edema is likely caused by his cirrhosis. Plan 1. Initially, I ordered a paracentesis with fluid analysis, Albumin before and after, however, recent US w/o ascites, so cancelled. Appearance of ascites on exam apparently adipose tissue. 2. Diuretics: typically we recommend Lasix 40mg BID Spironolactone 200mg daily - if not contraindicated by renal insufficiency. 3. Hep C quantitative is pending. Will review when available - looking for recurrence of the Hep C virus. 4. No endoscopy required as underwent normal EGD in the past year. Also recent colonoscopy. 5. Venous doppler US of the portal and hepatic veins to r/o thrombosis. 6. Low salt diet discussed in detail. 7. OP GI f/u for cirrhosis, or [facility] if issues. He will need 6 month imaging of the liver to screen for hepatocellular cancer and diuretic monitoring. Attg addendum: I interviewed and examined pt, reviewed chart and labs. Pt with cirrhosis, presumably related to HCV, admit with pedal edema and renal failure. Pedal edema is thought to be related to renal insuff, amlodipine, and portal HTN, and has improved with diuretics prescribed by nephro service. Would consider checking urine sodium. Will defer management of diuretics and renal failure to nephro service. He has no evidence of encephalopathy - no need for lactulose at this time. Will arrange for outpt f/u - please call with questions as needed.
[2016-10-02] MEDS ORDERED: ALBUMIN HUMAN 25% 12.5 GM/50 ML VIAL IV ONE ×2 (13:15)
--- NOTE | 2016-10-02 13:25 | EXERCISE STRESS ECHO ---
*NOTICE TO RECEIVING DEMOCRAT AGENCY This information is strictly Confidential and protected under [place] law. [place] law prohibits you from making any further disclosure of this information unless further disclosure is expressly permitted by the written consent of the person to whom it pertains or is authorized by law. A general authorization for the release of medical or other information is not sufficient for this purpose. Hospital accepts no responsibility if the information is made available to any other person, INCLUDING THE PATIENT. Interpretation Summary * Name: PABLITO RANGEL Study Date: 10/02/2016 10:49 AM BP: 142/75 mmHg * Patient Location: C.2T\S\S229\S\1 HR: 54 * : 1955 (M/d/yyyy) Gender: Male Height: 75 in * Age: 61 yrs Ethnicity: [place] Weight: 302 lb * Ordering Physician: Barb Wei * Referring Physician: Self, Referred * Performed By: Yari Sal RCS * * Reason For Study: CHEST PAIN / SHOULDER PAIN * BSA: 2.6 m2 * -- Conclusions -- * Stress ECG: No ST changes. No arrhythmias. * The left ventricular ejection fraction increases normally with stress. The left ventricular end-systolic cavity size reduces post-stress (normal response). The left ventricular wall motion with stress is normal. * LVEF remains 65% at rest. Procedure Details * ECHOEX, CPT #19162 * A contrast injection of Definity was performed to improve assessment of LV function. * Contrast was injected into an intravenous site in the left arm. * One vial of Definity ultrasound contrast was diluted in normal saline to a total volume of 10 ml. A total of '7' ml of solution was administered during imaging. * Lot # [id number] of Definity utilized for procedure. * Expiration date 1 MAR 13. * The attending nurse who injected the contrast agent was HUDSON JAIMES [facility], RN. Left Ventricle * The left ventricle is grossly normal size. * The left ventricular ejection fraction increases normally with stress. The left ventricular end-systolic cavity size reduces post-stress (normal response). The left ventricular wall motion with stress is normal. Stress Parameters * Normal baseline electrocardiogram. * Stress ECG: No ST changes. No arrhythmias. * The stress portion of this study was personally supervised by the undersigned interpreting physician. * Rest heart rate was '54' BPM. * Rest blood pressure was '142/75' * Maximum heart rate achieved was 181 bpm. * Maximum heart rate was 113 % of maximum age-predicted heart rate. * Maximum blood pressure was '211/86' * Total exercise time was '04:05' * Maximum exercise MET level achieved was '5.90' METS * Maximum treadmill elevation was '12.00'% grade. * Maximum treadmill speed was '2.50' miles per hour.
[2016-10-02] MEDS ORDERED: NURSING VERBAL MED ORDER ONE (13:45)
[2016-10-02] MEDS: DOCUSATE SODIUM 100 MG CAP PO SCH ×2 (21:00→21:58)
--- NOTE | 2016-10-02 21:58 | DIAGNOSTIC IMAGING REPORT ---
DOPPLER ULTRASOUND OF THE MAJOR HEPATIC VESSELS CLINICAL HISTORY: Cirrhosis. Increasing ascites. COMPARISON STUDY: CT of the abdomen and pelvis September 30, 2016. FINDINGS: The main, left and right portal veins are patent with appropriately directed flow. The middle, left and right hepatic veins are patent. Visualized portions of the splenic vein were patent. The hepatic artery was patent. The liver is cirrhotic. IMPRESSION: Patent major hepatic vessels with appropriately directed flow. Electronically signed by: Juaquin De La Cruz M.D. 10/02/2016 9:57 PM Dictated Date/Time: 10/02/2016 9:54 PM
[2016-10-03] VITALS (7 sets, daily range): BP systolic 117–138; BP diastolic 64–77; PULSE 50–63; TEMP 36.4–37; O2SAT 94–96
[2016-10-03 06:06] LABS: HEMATOCRIT 35.1 % (42-52); MEAN CELL VOLUME 88.6 fL (80-100); MEAN CORPUSCULAR HEMOGLOBIN 30.3 pg (25-34); MEAN CORPUSCULAR HGB CONC 34.2 g/dl (32-36); PLATELET COUNT 115 K/uL (130-400); RED BLOOD COUNT 3.96 M/uL (4.7-6.1); WHITE BLOOD COUNT 5.27 K/uL (4.8-10.8)
[2016-10-03 06:39] LABS: CALCIUM 9.1 mg/dl (8.5-10.1); CREATININE 1.6 mg/dl (0.60-1.40); POTASSIUM 3.6 mmol/L (3.5-5.1)
[2016-10-03] MEDS: LABETALOL HCL 100 MG TAB PO SCH (07:44)
[2016-10-03] MEDS: GABAPENTIN 100 MG CAP PO SCH (07:45)
[2016-10-03] MEDS: RANITIDINE HCL 150 MG TAB PO PRN (07:45)
[2016-10-03] MEDS: PANTOprazole SOD 40 MG TAB PO SCH (07:45)
[2016-10-03] MEDS: CYANOCOBALAMIN 500 MCG TAB (VIT B-12) PO SCH (07:45)
[2016-10-03] MEDS: FUROSEMIDE 40 MG TAB PO SCH (07:46)
[2016-10-03] MEDS: DOCUSATE SODIUM 100 MG CAP PO SCH (07:46)
[2016-10-03] MEDS: SPIRONOLACTONE 100 MG TAB PO SCH (07:46)
--- NOTE | 2016-10-03 08:36 | Neurology Progress Notes ---
Neurology Progress Note Date of Service Oct 03, 2016. Subjective In general, he feels better than when he came to the hospital. He is up walking around more and has lost considerable fluid with treatment. He has not received Mestinon yesterday or today. His double vision is the same. He will get the double vision looking down into the left but he can be in other directions. When he covers his right eye, he does not have double vision. When he covers his left eye he thinks he may still have some. He does not have any swallowing problems. He has no shortness of breath Limb strength is good CT scan of the chest showed no evidence of thymoma. Echocardiogram was unremarkable Objective Date Time Temp Pulse Resp B/P Pulse Ox O2 Delivery O2 Flow Rate FiO2 10/03/16 08:05 36.7 50 20 122/71 95 Room Air 10/03/16 08:00 94 Room Air 10/03/16 04:00 37.0 57 18 117/64 94 Room Air 10/03/16 04:00 94 Room Air 10/03/16 00:00 Room Air 10/03/16 00:00 36.6 63 20 138/77 96 Room Air 10/02/16 20:00 96 Room Air 10/02/16 19:56 37.0 59 18 150/81 96 10/02/16 16:00 98 Room Air 10/02/16 15:34 36.8 51 18 119/69 98 10/02/16 12:30 Room Air 10/02/16 12:07 36.6 50 18 152/81 96 Room Air Last 24 Hours Test 10/02/16 11:10 10/03/16 05:20 White Blood Count 5.27 K/uL Red Blood Count 3.96 M/uL Hemoglobin 12.0 g/dL Hematocrit 35.1 % Mean Corpuscular Volume 88.6 fL Mean Corpuscular Hemoglobin 30.3 pg Mean Corpuscular Hemoglobin Concent 34.2 g/dl Platelet Count 115 K/uL Sodium Level 137 mmol/L Potassium Level 3.6 mmol/L Chloride Level 102 mmol/L Carbon Dioxide Level 27 mmol/L Anion Gap 8.0 mmol/L Blood Urea Nitrogen 32 mg/dl Creatinine 1.60 mg/dl Est Creatinine Clear Calc Drug Dose 72.3 ml/min Estimated GFR () 53.1 Estimated GFR (Non- 45.8 BUN/Creatinine Ratio 20.0 Random Glucose 101 mg/dl Calcium Level 9.1 mg/dl Total Bilirubin 0.8 mg/dl Direct Bilirubin 0.1 mg/dl Aspartate Amino Transf (AST/SGOT) 22 U/L Alanine Aminotransferase (ALT/SGPT) 21 U/L Alkaline Phosphatase 78 U/L Total Protein 7.8 gm/dl Albumin 3.8 gm/dl Exam: He is awake and alert. Speech is normal without aphasia or dysarthria. Mood and affect are normal and appropriate. Thought processes seem intact. Extraocular eye muscles are intact without nystagmus or disconjugate gaze. Pupils are equal and reactive to light. There is no facial droop. Gait is normal. Coordination of the arms is normal. Strength is normal and symmetrical in the limbs Current Inpatient Medications Medications (Trade) Dose Ordered Sig/Elliot Route Start Time Stop Time Status Last Admin Dose Admin Cyanocobalamin (Vitamin B-12 Tab) 500 mcg DAILY PO 10/01/16 09:00 10/31/16 08:59 10/03/16 07:45 500 MCG Gabapentin (Neurontin Cap) 200 mg TID PO 10/01/16 09:00 10/31/16 08:59 10/03/16 07:45 200 MG Labetalol HCl (Normodyne Tab) 100 mg BID PO 10/01/16 09:00 10/31/16 08:59 10/03/16 07:44 100 MG Pantoprazole Sodium (Protonix Tab) 40 mg QAM PO 10/01/16 09:00 10/31/16 08:59 10/03/16 07:45 40 MG Ranitidine HCl (zANTac TAB) 150 mg BID PRN PO 09/30/16 22:45 10/30/16 22:44 10/03/16 07:45 150 MG Acetaminophen (Tylenol Tab) 650 mg Q4H PRN PO 09/30/16 22:45 10/30/16 22:44 Al Hydrox/Mg Hydrox/Simethicone (Maalox Max Susp) 15 ml Q4H PRN PO 09/30/16 22:45 10/30/16 22:44 Magnesium Hydroxide (Milk Of Magnesia Susp) 30 ml Q12H PRN PO 09/30/16 22:45 10/30/16 22:44 Ondansetron HCl (Zofran Inj) 4 mg Q6H PRN IV 09/30/16 22:45 10/30/16 22:44 Nitroglycerin (Nitrostat Tab) 0.4 mg UD PRN SL 09/30/16 22:45 10/30/16 22:44 Morphine Sulfate (MoRPHine SULFATE INJ) 2 mg Q30M PRN IV 09/30/16 22:45 10/14/16 22:44 Polyethylene (Miralax Powder Packet) 17 gm DAILY PRN PO 09/30/16 22:45 10/30/16 22:44 Furosemide (Lasix tab) 40 mg QAM PO 10/02/16 09:00 11/01/16 08:59 10/03/16 07:46 40 MG Spironolactone (Aldactone Tab) 100 mg QAM PO 10/02/16 09:00 11/01/16 08:59 10/03/16 07:46 100 MG Docusate Sodium (coLACE CAP) 100 mg BID PO 10/02/16 21:00 11/01/16 20:59 10/03/16 07:46 100 MG Impression 1. History of possible myasthenia gravis. Apparently he had some electrical findings recently that were suggestive myasthenia gravis, although on examination currently, I do not see any focal or fluctuating weakness. He states that he has double vision, both with both eyes open, and with the right eye (monocular). Monocular diplopia is not neurologic. I see no disconjugate gaze or other focal cranial nerve weaknesses. He has initiated Mestinon and is at 60 mg twice a day with no improvement. In addition he has side effects to the medication. Mestinon was discontinued yesterday. He is certainly not worse off the medication. He did have shortness of breath on admission, but this has been resolved with treatment Currently he has no focal neurologic findings, meningeal signs, or encephalopathy. 2. Cirrhosis secondary to previous hep C infection 3. Renal failure, mild He is followed by nephrology 4. Chronic low back pain with radicular symptoms still on the right leg, possibly L3 or L4. He has right thigh numbness. Plan 1. Obtain old records regarding his myasthenia from the [facility] in [place] who should have the records from [place]. I would like to obtain laboratory studies and EMG results. 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 2. Since we are uncertain about the presence of myasthenia gravis and he has side effects to Mestinon, I recommend remaining off Mestinon for now. 3. MRI of the brain. He has renal insufficiency although I prefer with and without contrast. Attention to the orbits and brain stem. 4. CT scan of the chest to look for thymoma, again, prefer with and without contrast. 5. Acetylcholine receptor antibody titers including binding, blocking, and modulating antibodies, if not done recently. I have no further neurologic recommendations to make at this time. I would certainly like to follow him as an outpatient
--- NOTE | 2016-10-03 09:39 | Nephrology Progress Note ---
Nephrology Progress Note Date of Service Oct 03, 2016. Chief Complaint Evaluation of renal insufficiency in this patient admitted with chest pain, abdominal and lower extremity edema Subjective Mr. Cassidy was seen & examined in the PCU this morning. He reports brisk diuresis in response to IV furosemide and spironolactone. His peripheral edema and abdominal distention are subjectively improved. The patient has renal insufficiency. Medical records from the [facility] show baseline creatinine has been 1.2 - 1.7 (12/09). Mr. Cassidy has ascites w/ LE edema. He is hepatitis C +. Abdominal CT revealed hepatic cirrhosis. Patient reports oral therapy for Hep C 2 years ago at [facility]. The patient has longstanding arterial HTN. Blood pressure remains acceptable at this time. Review of Systems Constitutional: No fever Cardiovascular: No chest pain Respiratory: No dyspnea at rest Abdomen: + problem reported (+ distention), No pain Extremities: + leg edema A complete review of systems was performed. Pertinent positives are noted above. All other systems are negative. Vital Signs Last 8 Hrs Date Time Temp Pulse Resp B/P Pulse Ox O2 Delivery O2 Flow Rate FiO2 10/03/16 08:05 36.7 50 20 122/71 95 Room Air 10/03/16 08:00 94 Room Air 10/03/16 04:00 37.0 57 18 117/64 94 Room Air 10/03/16 04:00 94 Room Air I & O 24-Hour Column 10/03/16 08:00 Intake Total 700 ml Output Total 3700 ml Balance -3000 ml Last Recorded Weight Weight (Kilograms): 136.900 Physical Exam General Appearance: no apparent distress Head: normocephalic, atraumatic Eyes: PERRL, EOMI Neck: no adenopathy Respiratory/Chest: lungs clear, no respiratory distress Cardiovascular: regular rate, rhythm Abdomen/GI: non tender, + distended Extremities/Musculoskelatal: + swelling (1+ pretibial pitting edema) Neurologic/Psych: alert, oriented x 3 Family History Diabetes mellitus FH: cancer FH: heart disease FH: lung disease Hypertension Negative for CKD/ESRD Social History Smoking Status: Never smoker Smokeless Tobacco Use: No Alcohol Use: none Drug Use: none Marital Status: Housing Status: lives with family Occupation: employed Single. Unemployed. Never a smoker. Denies alcohol use. Laboratory Results Past 24 Hours 10/03/16 05:20 10/03/16 05:20 Test 10/02/16 11:10 10/03/16 05:20 Red Blood Count 3.96 M/uL (4.7-6.1) Mean Corpuscular Volume 88.6 fL (80-100) Mean Corpuscular Hemoglobin 30.3 pg (25-34) Mean Corpuscular Hemoglobin Concent 34.2 g/dl (32-36) Anion Gap 8.0 mmol/L (3-11) Est Creatinine Clear Calc Drug Dose 72.3 ml/min Estimated GFR () 53.1 Estimated GFR (Non- 45.8 BUN/Creatinine Ratio 20.0 (10-20) Calcium Level 9.1 mg/dl (8.5-10.1) Total Bilirubin 0.8 mg/dl (0.2-1) Direct Bilirubin 0.1 mg/dl (0-0.2) Aspartate Amino Transf (AST/SGOT) 22 U/L (15-37) Alanine Aminotransferase (ALT/SGPT) 21 U/L (12-78) Alkaline Phosphatase 78 U/L (45-117) Total Protein 7.8 gm/dl (6.4-8.2) Albumin 3.8 gm/dl (3.4-5.0) Allergies Coded Allergies: Codeine (Verified Adverse Reaction, Mild, "MAKES ME GOOFEY", 09/30/16) Medications Current Inpatient Medications Medications (Trade) Dose Ordered Sig/Elliot Route Start Time Stop Time Status Last Admin Dose Admin Cyanocobalamin (Vitamin B-12 Tab) 500 mcg DAILY PO 10/01/16 09:00 10/31/16 08:59 10/03/16 07:45 500 MCG Gabapentin (Neurontin Cap) 200 mg TID PO 10/01/16 09:00 10/31/16 08:59 10/03/16 07:45 200 MG Labetalol HCl (Normodyne Tab) 100 mg BID PO 10/01/16 09:00 10/31/16 08:59 10/03/16 07:44 100 MG Pantoprazole Sodium (Protonix Tab) 40 mg QAM PO 10/01/16 09:00 10/31/16 08:59 10/03/16 07:45 40 MG Ranitidine HCl (zANTac TAB) 150 mg BID PRN PO 09/30/16 22:45 10/30/16 22:44 10/03/16 07:45 150 MG Acetaminophen (Tylenol Tab) 650 mg Q4H PRN PO 09/30/16 22:45 10/30/16 22:44 Al Hydrox/Mg Hydrox/Simethicone (Maalox Max Susp) 15 ml Q4H PRN PO 09/30/16 22:45 10/30/16 22:44 Magnesium Hydroxide (Milk Of Magnesia Susp) 30 ml Q12H PRN PO 09/30/16 22:45 10/30/16 22:44 Ondansetron HCl (Zofran Inj) 4 mg Q6H PRN IV 09/30/16 22:45 10/30/16 22:44 Nitroglycerin (Nitrostat Tab) 0.4 mg UD PRN SL 09/30/16 22:45 10/30/16 22:44 Morphine Sulfate (MoRPHine SULFATE INJ) 2 mg Q30M PRN IV 09/30/16 22:45 10/14/16 22:44 Polyethylene (Miralax Powder Packet) 17 gm DAILY PRN PO 09/30/16 22:45 10/30/16 22:44 Furosemide (Lasix tab) 40 mg QAM PO 10/02/16 09:00 11/01/16 08:59 10/03/16 07:46 40 MG Spironolactone (Aldactone Tab) 100 mg QAM PO 10/02/16 09:00 11/01/16 08:59 10/03/16 07:46 100 MG Docusate Sodium (coLACE CAP) 100 mg BID PO 10/02/16 21:00 11/01/16 20:59 10/03/16 07:46 100 MG Impression (1) Renal failure (2) Cirrhosis (3) Hepatitis C (4) Precordial chest pain (5) Hypertension Acute kidney injury. Urine sediment is acellular. Urinary protein was negative by dipstick. Abdominal CT was negative for obstruction. Patient's last creatinine value from [facility] was 1.2 - 1.7 (12/09). Patient's history is significant for Hepatitis C + and cirrhosis. He was admitted for evaluation of chest discomfort, orthopnea and progressive abdominal ascites and lower extremity edema. Recommendations ACUTE KIDNEY INJURY: -- Creatinine is trending down in response to IV diuretic therapy -- Urine sediment was benign. Urinary protein was within normal limits -- Renal US report revealed 10.5 cm kidneys with moderate cortical scarring. No hydronephrosis CHRONIC KIDNEY DISEASE: -- Serum creatinine 1.2 - 1.7 (12/09) at [facility]. HYPERTENSION: -- Hold amlodipine (LE edema), chlorthalidone and lisinopril -- Continue labetalol, lasix & spironolactone CIRRHOSIS: -- Await Hep C testing results -- GI recommendations reviewed. They will evaluate patient further as an outpatient. EDEMA: -- Patient is diuresing 2 - 3 L / day -- Continue furosemide 40 mg and spironolactone 100 mg each morning -- Echocardiogram report 10/01/15 reviewed: preserved LVEF. No valvular heart disease MYASTHENIA: -- Evaluation as per neurology
[2016-10-03] MEDS ORDERED: CLC100 PO (12:57)
[2016-10-03] MEDS ORDERED: SPRN100 PO (12:57)
[2016-10-03] MEDS ORDERED: FRS/40 PO (12:57)
--- NOTE | 2016-10-03 13:02 | Discharge Instructions ---
Discharge Instructions Admission Reason for Admission: Shortness of breath, Edema,Chest Pain Discharge Discharge Diagnosis / Problem: Shortness of breath, cirrhosis, noncardiac chest pain Discharge Goals Goal(s): Improve disease control, Diagnostic testing, Therapeutic intervention Activity Recommendations Activity Limitations: resume your previous activity . Instructions / Follow-Up Instructions / Follow-Up You were admitted for chest pain, shortness of breath, and leg swelling. You were found to also have cirrhosis of the liver and mild kidney failure. Your cardiac stress test was normal. Your symptoms improved tremendously after starting on a new diuretic and stopping some of your other meds. You were seen by Neurology for your possible Myasthenia gravis, GI for your cirrhosis, and Nephrology for your kidney failure (which then improved). You will need to follow up with the GI doctor and the Neurologist, as well as your primary care doctor at the [facility] after discharge. Current Hospital Diet Patient's current hospital diet: Low Sodium Diet (2gm Na) Discharge Diet Recommended Diet: Low Sodium Diet (2gm Na) Procedures Procedures Performed: Stress ECHO-normal CT abd/pelvis Liver US Chest CT Renal US Pending Studies Studies pending at discharge: yes List of pending studies: Ach receptor antibodies, Hepatitis C viral load Medical Emergencies . Who to Call and When: Medical Emergencies: If at any time you feel your situation is an emergency, please call 911 immediately. . Non-Emergent Contact Non-Emergency issues call your: Primary Care Provider Call Non-Emergent contact if: temperature is above 101, your pain is not controlled, your pain is worsening, your pain is unusual for you, you have any medication questions or if you have worsening leg swelling or shortness of breath, chest pain, weakness, confusion, or yellowing of the skin or eyes, or if you have bleeding. . . "Provider Documentation" section prepared by Barb Wei. VTE Core Measure Inpt VTE Proph given/why not?: Contraindicated
[2016-10-04] MEDS ORDERED: PYRIDOSTIGMINE BROMIDE 60 MG TAB PO SCH (09:00)
[2016-10-05 08:13] LABS: HEPATITIS C VIRAL RNA BY PCR <15 NOT DETECTED IU/ML (<15); HEPATITIS C VIRAL RNA(LOG) PCR <1.18 NOT DETECTED LOG IU/ML (<1.18)
--- NOTE | 2016-10-05 11:33 | Discharge Summary ---
Discharge Summary Admission Date: Sep 30, 2016 at 23:09 Discharge Date: Oct 03, 2016 Discharge Disposition: Home Principal Diagnosis: Chest pain, Acute kidney injury Problems/Secondary Diagnoses: HTN H/o Hep C (treated) Suspected Myasthenia Gravis Diplopia Chronic grade 1 diastolic dysfunction/CHF LVH Lower extremity edema CKD stage III with RENÉE Cirrhosis of the liver Thrombocytopenia Chronic constipation Obesity Cholelithiasis-asymptomatic Colonic diverticulosis Mild splenomegaly Immunizations: Have You Had Influenza Vaccine: No History of Tetanus Vaccine?: No History of Pneumococcal: No History of Hepatitis B Vaccine: No Procedures: CHEST ONE VIEW PORTABLE CLINICAL HISTORY: CHEST PAIN dyspnea COMPARISON STUDY: 11/17/2013 FINDINGS: The bones soft tissues and hemidiaphragms are normal. The cardiomediastinal silhouette is normal. The lungs are clear. The pulmonary vasculature is normal. IMPRESSION: Negative chest. ABDOMEN AND PELVIS CT WITHOUT CONTRAST CT DOSE: 1593.86 mGy.cm HISTORY: Suspect cirrhosis/ascites TECHNIQUE: Multiaxial CT images of the abdomen and pelvis were performed without contrast. COMPARISON STUDY: Abdominal ultrasound 11/20/2013. FINDINGS: The lung bases are clear. No pneumoperitoneum. No pneumatosis. There are few pericardial calcifications. Mild body wall edema within the lumbar region. Cholelithiasis. The gallbladder is contracted. No definite gallbladder wall thickening. Punctate calcification within the pancreatic head. Nodular contour to the liver consistent with cirrhosis. The spleen is normal in size. The adrenal glands and kidneys are unremarkable. No hydronephrosis. Mild bilateral perinephric edema which is likely chronic. No retroperitoneal lymphadenopathy. Normal bladder. Small fat-containing bilateral inguinal hernias. Suboptimal evaluation for bowel pathology due to the lack of intravenous and oral contrast. However, there is no definite bowel wall thickening or obstruction. Normal appendix. There are few left-sided abdominal venous collaterals. IMPRESSION: 1. Cirrhotic liver. 2. Cholelithiasis. 3. Colonic diverticulosis. 4. Normal appendix. 5. No definite bowel wall thickening or obstruction. RENAL ULTRASOUND HISTORY: Chronic kidney disease. COMPARISON: Abdomen and pelvis CT 09/30/2016. Renal ultrasound 11/19/2013. FINDINGS: Right kidney: 11.3 cm. No hydronephrosis. Moderate cortical thinning most pronounced within the lower pole which measures 1.4 cm in thickness. Normal corticomedullary differentiation. Left kidney: 10.6 cm. No hydronephrosis. Moderate cortical thinning most pronounced within the upper pole which measures 1.3 cm in thickness. Normal corticomedullary differentiation. There is 1.4 cm cyst within the lower pole. Bladder: No bladder wall thickening. IMPRESSION: 1. Moderate bilateral cortical renal thinning. 2. No hydronephrosis. CT OF THE CHEST WITHOUT IV CONTRAST CLINICAL HISTORY: Myasthenia gravis COMPARISON STUDY: Chest x-ray dated 09/30/2016 CT DOSE: 986.56 mGy.cm TECHNIQUE: CT of the thorax was performed from the thoracic inlet to the lung bases. Images are reviewed in the axial, sagittal, and coronal planes. IV contrast was not administered for this examination. FINDINGS: Thyroid: Imaged portions of the thyroid gland are normal in appearance. Thoracic aorta: The ascending thoracic aorta measures 39 mm. Heart: There are coronary artery calcifications. There are pericardial calcifications. Lungs and pleural spaces: There are no pleural effusions. There are dependent atelectatic changes. There is no focal pulmonary consolidation. There are few scattered tiny point nodules, none of which exceed 2 mm. Mediastinum: There is no mediastinal lymphadenopathy. There are no anterior mediastinal masses to indicate a thymoma. Ngozi: There is no evidence of pathologic adenopathy given the limitations of a noncontrast study Axilla: Clear. Upper abdomen: Cholelithiasis. The liver has a slightly serrated serosal surface. This may indicate cirrhosis. The spleen is mildly enlarged Skeletal structures: There are no lytic or blastic osseous lesions. IMPRESSION: 1. No CT evidence of a thymoma 2. No evidence of focal pulmonary consolidation 3. Possible hepatic cirrhosis. Mild splenomegaly. 4. Cholelithiasis DOPPLER ULTRASOUND OF THE MAJOR HEPATIC VESSELS CLINICAL HISTORY: Cirrhosis. Increasing ascites. COMPARISON STUDY: CT of the abdomen and pelvis September 30, 2016. FINDINGS: The main, left and right portal veins are patent with appropriately directed flow. The middle, left and right hepatic veins are patent. Visualized portions of the splenic vein were patent. The hepatic artery was patent. The liver is cirrhotic. IMPRESSION: Patent major hepatic vessels with appropriately directed flow. ECHO: * Compared with 11/17/13 study, no significant change. * The left ventricle is normal in size. * Ejection Fraction = 65-70%. * Left ventricular systolic function is normal. * The left ventricular wall motion is normal. * There is mild concentric left ventricular hypertrophy. * Grade I diastolic dysfunction, (abnormal relaxation pattern). * No significant valvular disease. Stress ECHO: * Stress ECG: No ST changes. No arrhythmias. * The left ventricular ejection fraction increases normally with stress. The left ventricular end-systolic cavity size reduces post-stress (normal response) . The left ventricular wall motion with stress is normal. * LVEF remains 65% at rest. Consultations: Gastroenterology Nephrology Neurology Medication Reconciliation New Medications: Docusate Sodium (Docusate Sodium) 100 Mg Cap 100 MG PO BID for 30 Days, #60 CAP Spironolactone (Spironolactone) 100 Mg Tab 100 MG PO QAM, #30 TAB Changed Medications: Furosemide (Lasix) 40 Mg Tab 40 MG PO QAM, #30 TAB (Changed from: BID) Continued Medications: Cyanocobalamin (Vitamin B-12) 500 Mcg Tab 500 MCG PO DAILY, TAB Gabapentin (Neurontin) 100 Mg Cap 200 MG PO TID, CAP Labetalol Hcl (Normodyne) 100 Mg Tab 100 MG PO BID, TAB Pantoprazole (Protonix) 40 Mg Tab 40 MG PO QAM, #30 TAB Ranitidine Hcl (Zantac) 150 Mg Tab 150 MG PO BID PRN for GASTRITIS, TAB Discontinued Medications: Amlodipine Besylate (Amlodipine Besylate) 5 Mg Tab 5 MG PO DAILY Chlorthalidone (Chlorthalidone) 25 Mg Tab 25 MG PO QAM, #30 TAB Lisinopril (Zestril) 30 Mg Tab 30 MG PO DAILY, TAB Potassium Chloride (Klor-Con M20) 20 Meq Tabcr 20 MEQ PO BID Pyridostigmine [place] (Mestinon) 60 Mg Tab 60 MG PO UD, TAB TAKE 1 TAB DAILY FOR 7 DAYS, THEN 1 TAB BID FOR 7 DAYS, THEN 1 TAB TID FOR 7 DAYS THEN 1 TAB QID Referrals At Discharge Follow up Referrals: Electronics Maintenance Technician Referral - Within a Month with Estelle Silva M.D. Neurologist Referral - Within 1-2 Weeks with Kolby Larsen M.D. Discharge Exam Pt feeling great on day of discharge. No SOB, no CP, leg edema significantly improved. Remains with left monocular diplopia. Review of Systems: Constitutional: No fever Eyes: + diplopia ENT: No problem reported, No trouble swallowing Respiratory: No cough, No shortness of breath Cardiovascular: No chest pain, No palpitations Abdomen: + constipation, No nausea, No pain, No vomiting Musculoskeletal: No problem reported Genitourinary - Male: No problem reported Neurologic: No problem reported Psychiatric: No problem reported Endocrine: No problem reported Hematologic / Lymphatic: No abnormal bleeding/bruising, No problem reported Integumentary: No rash Physical Exam: General Appearance: WD/WN, no apparent distress, + obese Eyes: normal inspection, PERRL, EOMI, sclerae normal ENT: hearing grossly normal, pharynx normal Neck: trachea midline Respiratory/Chest: lungs clear, normal breath sounds, no respiratory distress, no accessory muscle use Cardiovascular: regular rate, rhythm, no gallop, no murmur, normal peripheral pulses, + pertinent finding (1+ pitting edema legs to knees bilat improved) Abdomen / GI: normal bowel sounds, non tender, soft (and obese, not distended) Extremities: no calf tenderness Neurologic/Psychiatric: no motor/sensory deficits, alert, normal mood/affect , oriented x 3 Skin: normal color, warm/dry, no rash Lymphatic: no adenopathy Hospital Course Pt is a 61 yo male with a h/o HTN, Hep C (treated), recent dx of Myasthenia Gravis diagnosed after having diplopia and an EMG of the neck and face. He was started on Mestinon about 1-2 weeks ago. He reports about 4-5 days ago he started noticing SOB that was progressively worse. There was also some left shoulder pain that then radiated across his left chest over to the right chest and was fairly severe, associated with the SOB. When he would stop and rest, the SOB would improve. The CP came and went over the last few days but his biggest complaint is the progressively worsening SOB over the last 4-5 days that got so bad he came to the ER. Looking back, he does think he has had some mild SOB over the last year. He also has had about a 30 lb weight gain and abd distension and was found to have cirrhosis on imaging performed here in the ER. He does note his plts have been a little low over the past few years at the [facility] where he gets his care. He was treated for Hep C successfully in 2014. Hep C viral load here is undetectable. He has never had a cardiac stress test. He reports his BP was previously significantly elevated and was admitted here in 2-14 fo rthis but since taking meds, it has improved. He was never a smoker. His CXR here is clear, his ECHO shows grade 1 diastolic dysfunction and LVH but otherwise normal LV fxn and valves. 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 His legs have been largely swollen over the last 6-8 months and he reports today is the first time he has seen his ankles in 8 months after receiving one dose of lasix and aldactone. No more CP since being here. Trop neg x 2, ECG normal. He had been prescribed a 2 week course of a potent diuretic he describes in addition to his current Lasix and Chlorthalidone for worsening LE edema recently , however this did not lead to improvement and was D/Cd possibly in favor of doubling his Lasix. Edema, CKD stage III with REÉNE - worsening LE edema and possibly ascites, on several diuretics and ACEI. 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 Cause could be from cirrhosis although albumin is WNL. Abd CT shows cirrhosis and some perinephric edema, UA to negative for protein. ECHO with grade 1 diastolic dysfunction and LVH, preserved LVEF. Renal US with cortical thinning, no obstruction Much improved on lasix 40mg daily and aldactone 100mg daily combo. Edema decreased, creosoting engineer down to 1.6 on day of discharge. -Nephrology consulted and appreciate recommendations -follow renal function as an outpatient -continue lasix 40mg daily and aldactone 100mg daily -stopped amlodipine (due to peripheral edema) and lisinopril as per Nephro CP, SOB, Myasthenia gravis by report, on Mestinon x 1-2 week - CK/MB elevated with normal trop and normal EKG. Second troponin negative. I believe his worsening SOB is related to his possible MG or possibly as an adverse side effect of his Mestinon as it did seem to worsen significantly after starting this med. Chest xray and CT did not reveal pulmonary edema or other cause of SOB. However much improved after diuresis and improved renal function. Stress ECHO normal. ECHO with grade 1 diastolic dysfunction, LVH. For Suspect MG---> d/w Neuro in depth: need to obtain previous records of EMG, unclear if truly has MG, needs further eval. [facility]. Repeated here and pending at time of discharge. CT chest did not show thymoma -Consult Neuro to assist with management and further workup for MG much appreciated-will f/u with Dr. Larsen as an outpatient -stop Mestinon for now until diagnosis clarified -[facility] and [facility] records dx of MG as an outpatient Dr. Larsen will f/ u on this -needs Brain MRI with contrast so will hold off until renal function improves although he by report had a normal brain MRI in 2015 ordered by his Space Engineer Cirrhosis, h/o treated Hep C, thrombocytopenia- INR 1.1-1.2, plts 105-115, LFTs normal, cirrhosis on CT with some ascites minimal. No evidence clinically of varices or h/o GI bleeding. Hep C viral load undetectable here. -started lasix and aldactone -consult GI for further eval and [facility] management-f/u as an outpatient -constipation to be treated with docusate for now, but could add lactulose as an outpatient HTN - Normotensive -continue labetalol, diuretics -stopped amlodipine for peripheral edema, stopped ACEI for renal failure Full code - Proph: Anticoagulation was held due to thrombocytopenia and cirrhosis, TEDs Total Time Spent: Greater than 30 minutes This includes examination of the patient, discharge planning, medication reconciliation, and communication with other providers. Discharge Instructions Please refer to the electronic Patient Visit Report (Discharge Instructions) for additional information. Follow-Up With PCP within 1 week With GI within 2 weeks With Neurology within 1-2 weeks Additional Copies To Estelle Silva M.D.; Kolby Larsen M.D.
[2016-10-07 02:22] LABS: ACETYLCHOLINE RECEP MODULATING 11; ACETYLCHOLINE RECEPT BLOCKING <15 % inhibit (<15); RECEPTOR BINDING AB <0.30 nmol/L (<=0.30)
[2016-10-11] MEDS ORDERED: PYRIDOSTIGMINE BROMIDE 60 MG TAB PO SCH (09:00)
== END 2016-10-03 13:35 | disposition home or self-care (01) | DRG 683 ==
LOC: ENRESERVDT → ENRESERVTM → C.EDB 19:02 → C.2T 23:09
PROVIDERS: ADMIT Internal Medicine; ATTEND Family Medicine
DX: N17.9 Acute kidney failure, unspecified (principal); R18.8 Other ascites; I50.32 Chronic diastolic (congestive) heart failure; K21.9 Gastro-esophageal reflux disease without esophagitis; B19.20 Unspecified viral hepatitis C without hepatic coma; K74.60 Unspecified cirrhosis of liver; E66.9 Obesity, unspecified; H53.2 Diplopia; N18.3 Chronic kidney disease, stage 3 (moderate); I12.9 Hypertensive chronic kidney disease with stage 1 through stage 4 chronic kidney disease, or unspecified chronic kidney disease; D69.6 Thrombocytopenia, unspecified; G70.00 Myasthenia gravis without (acute) exacerbation; M54.5 Low back pain; K59.00 Constipation, unspecified

== ENCOUNTER 2016-11-14 08:09 | Emergency (ER) | payer OTHER ==
[~2016-11-14] VITALS: Ht 190.5 cm; Wt 138.2 kg
[~2016-11-14 08:09] MED LIST changes: -ASPEC81 PO; +CLC100 PO; +CYAN500T PO; +FRS/40 PO; +GABA-112 PO; -HYG25 PO; +LBT/100 PO; -LBT200 PO; -LSN20 PO; -NRV5 PO; +PANT40TA PO; +RANI150T3 PO; +SPRN100 PO
[2016-11-14 08:11] VITALS: TEMP 37.4; Ht 190.5 cm; Wt 138.2 kg
[2016-11-14 08:47] LABS: BASO % 0.1 %; BASO ABS # 0.01 K/uL (0-0.2); COMPLETE YES; EOS % 0.6 %; HEMATOCRIT 38.5 % (42-52); IG% 0.1 %; LYMPH ABS # 1.67 K/uL (1.2-3.4); MEAN CELL VOLUME 87.5 fL (80-100); MEAN CORPUSCULAR HEMOGLOBIN 30.5 pg (25-34); MEAN CORPUSCULAR HGB CONC 34.8 g/dl (32-36); MEAN PLATELET VOLUME 10.8 fL (7.4-10.4); NEUT % 58.2 %; PLATELET COUNT 110 K/uL (130-400); WHITE BLOOD COUNT 7.26 K/uL (4.8-10.8)
--- NOTE | 2016-11-14 08:57 | DIAGNOSTIC IMAGING REPORT ---
RIGHT FOOT MIN 3 VIEWS ROUTINE CLINICAL HISTORY: Right foot pain. COMPARISON: None FINDINGS: Lateral view demonstrates cortical irregularity with a tiny bone fragment along the plantar proximal aspect of the cuboid. Tarsometatarsal joints are intact. No suspicious osseous lesion is present. Minimal degenerative changes of the right foot are present. IMPRESSION: Cortical irregularity with tiny adjacent bone fragment along the plantar proximal cuboid. This could reflect an acute avulsion fracture. Electronically signed by: Juaquin De La Cruz M.D. 11/14/2016 8:56 AM Dictated Date/Time: 11/14/2016 8:52 AM
[2016-11-14] MEDS ORDERED: PRED50TA PO (10:00)
[2016-11-14 10:09] VITALS: BP 136/76; PULSE 80; O2SAT 97
--- NOTE | 2016-11-22 08:31 | EMERGENCY ROOM VISIT NOTE ---
History First contact with patient: 08:23 Chief Complaint: FOOT PAIN Stated Complaint: RIGHT FOOT PAIN History of Present Illness The patient is a 61 year old white male who presents to the Emergency Room with complaints of right foot pain that has been present for 3 days. He is having difficulty with ambulation. Pain is primarily dorsal but does include the plantar surface. It is diffuse throughout the foot. It is worse across the tarsometatarsal junction. He denies any lateral foot or ankle pain. He denies any calf pain or lower leg pain. He does have a history of neuropathy but states this feels different. He denies any history of gout. No trauma that he is aware of. He did buy new shoes approximately one week ago. No other treatment. He does not believe he is dehydrated, though he does admit to drinking less than normal. Review of Systems REVIEW OF SYSTEM: HEENT: No dizziness, visual problems, hearing loss, or tinnitus. There is no difficulty swallowing and no oral lesions are present. LYMPH: No adenopathy. PULMONARY: No cough, shortness of breath, sputum production or hemoptysis. CARDIOVASCULAR: No chest pain, palpitations, shortness of breath or peripheral edema. GASTROINTESTINAL: No diarrhea, constipation, nausea, vomiting, or abdominal pain. GENITOURINARY: No dysuria, frequency, urgency or nocturia. NEUROLOGIC: No weakness, muscle tenderness, epilepsy. Positive history of neurological problems. MUSCULOSKELETAL: No history of joint tenderness/swelling. Positive history of arthritis and arthralgias. SKIN: No rashes or lesions. PSYCHIATRIC: No history of depression or mental illness. ENDOCRINE: No history of diabetes, thyroid disorders, or abnormal hair growth. Past Medical/Surgical History Medical Problems: (1) Cirrhosis (2) Diplopia (3) GERD (gastroesophageal reflux disease) (4) Hepatitis C (5) History of orthopedic surgery (6) Hypertension (7) Pneumonia Family History Diabetes mellitus FH: cancer FH: heart disease FH: lung disease Hypertension Social History Smoking Status: Never Smoker Smokeless Tobacco Use: No Alcohol Use: none Drug Use: none Marital Status: Housing Status: lives with family Occupation Status: employed Current/Historical Medications Scheduled Cyanocobalamin (Vitamin B-12), 500 MCG PO DAILY Docusate Sodium (Docusate Sodium), 100 MG PO BID Furosemide (Lasix), 40 MG PO QAM Gabapentin (Neurontin), 600 MG PO BID Labetalol Hcl (Normodyne), 100 MG PO BID Pantoprazole (Protonix), 40 MG PO QAM Ranitidine Hcl (Zantac), 300 MG PO BID Spironolactone (Spironolactone), 100 MG PO QAM Allergies Coded Allergies: Codeine (Verified Adverse Reaction, Mild, "MAKES ME GOOFEY", 11/14/16) Physical Exam Vital Signs Date Time Temp Pulse Resp B/P Pulse Ox O2 Delivery O2 Flow Rate FiO2 11/14/16 10:09 80 16 136/76 97 11/14/16 08:11 37.4 80 18 149/77 95 Room Air Physical Exam Gen.: Well-developed, well-nourished, middle-aged white male, in obvious discomfort. No acute distress. Sitting on a bed. Alert and oriented. Skin: Warm and dry with good turgor. No rashes or lesions. No ecchymosis or erythema. The patient is not diaphoretic. No abrasions. Generalized edema of the right lower leg. No redness or warmth. No abrasions. No tophi. Musculoskeletal: Patient has no discomfort with palpation around the knee, crowley , or gastroc. Normal Greenfield test. Normal Homans sign. No pain with palpation on his ankle. There is discomfort with palpation over the foot dorsally. Pain is diffuse. It extends to the first MTP joint. Mild discomfort palpation on the plantar surface. No pain with palpation of the digits. Motor function of the toes is intact. Motor function the ankle is also intact and unremarkable. Neurologic: Decreased subjective sensation across the foot by soft touch. Sensation is intact but is less from the ankle distal. Peripheral pulses are 2+. Medical Decision & Procedures ER Provider Diagnostic Interpretation: Radiographic imaging obtained today of the foot was read by radiology as positive for auricle irregularity on the plantar surface of the cuboid. There is a potential for an acute avulsion. No other abnormalities are noted. Laboratory Results 11/14/16 08:34 Red Blood Count 4.40, Mean Corpuscular Volume 87.5, Mean Corpuscular Hemoglobin 30.5, Mean Corpuscular Hemoglobin Concent 34.8, Mean Platelet Volume 10.8, Neutrophils (%) (Auto) 58.2, Lymphocytes (%) (Auto) 23.0, Monocytes (%) (Auto) 18.0, Eosinophils (%) (Auto) 0.6, Basophils (%) (Auto) 0.1, Neutrophils # (Auto ) 4.22, Lymphocytes # (Auto) 1.67, Monocytes # (Auto) 1.31, Eosinophils # (Auto ) 0.04, Basophils # (Auto) 0.01 Test 11/14/16 08:34 White Blood Count 7.26 K/uL (4.8-10.8) Red Blood Count 4.40 M/uL (4.7-6.1) Hemoglobin 13.4 g/dL (14.0-18.0) Hematocrit 38.5 % (42-52) Mean Corpuscular Volume 87.5 fL (80-100) Mean Corpuscular Hemoglobin 30.5 pg (25-34) Mean Corpuscular Hemoglobin Concent 34.8 g/dl (32-36) Platelet Count 110 K/uL (130-400) Mean Platelet Volume 10.8 fL (7.4-10.4) Neutrophils (%) (Auto) 58.2 % Lymphocytes (%) (Auto) 23.0 % Monocytes (%) (Auto) 18.0 % Eosinophils (%) (Auto) 0.6 % Basophils (%) (Auto) 0.1 % Neutrophils # (Auto) 4.22 K/uL (1.4-6.5) Lymphocytes # (Auto) 1.67 K/uL (1.2-3.4) Monocytes # (Auto) 1.31 K/uL (0.11-0.59) Eosinophils # (Auto) 0.04 K/uL (0-0.5) Basophils # (Auto) 0.01 K/uL (0-0.2) RDW Standard Deviation 42.8 fL (36.4-46.3) RDW Coefficient of Variation 13.3 % (11.5-14.5) Immature Granulocyte % (Auto) 0.1 % Immature Granulocyte # (Auto) 0.01 K/uL (0.00-0.02) Uric Acid 10.1 mg/dl (2.6-7.2) CBC is unremarkable. Uric acid level is elevated at 10.1. CBC is unremarkable. ED Course Patient was educated regarding today's findings. Conservative care measures were discussed. CBC and uric acid level were obtained. X-ray imaging was also obtained. Patient does not have pain in the area that corresponds to his x-ray findings. I think this is an incidental or old injury. Uric acid level is elevated. Likelihood for gout was discussed. Due to his cirrhosis, he was started on a short course of prednisone 3 days. He will follow-up with his PCP on Wednesday to discuss additional treatment with colchicine or allopurinol. Moist heat and elevate intermittently to reduce pain and swelling. Return to the ED for any acute changes. Medical Decision Possibility of stress fracture, tendinopathy, gout, infection, osteoarthritis, osteomyelitis, and strain were considered among others. Impression Primary Impression: Foot pain Additional Impression: Elevated uric acid in blood Departure Information Referrals No Doctor, Assigned (PCP) Patient Instructions My [facility] Problem Qualifiers Primary Impression: Foot pain Laterality: right Qualified Codes: M79.671 - Pain in right foot
== END 2016-11-14 10:10 | disposition home or self-care (01) ==
LOC: C.EDB 08:12
DX: M79.671 Pain in right foot (principal); E79.0 Hyperuricemia without signs of inflammatory arthritis and tophaceous disease; I10 Essential (primary) hypertension; K74.60 Unspecified cirrhosis of liver; K21.9 Gastro-esophageal reflux disease without esophagitis; Z79.899 Other long term (current) drug therapy; Z87.898 Personal history of other specified conditions; Z88.5 Allergy status to narcotic agent; Z82.49 Family history of ischemic heart disease and other diseases of the circulatory system; Z83.3 Family history of diabetes mellitus; Z83.6 Family history of other diseases of the respiratory system

== ENCOUNTER 2016-12-13 21:16 | Emergency (ER) | payer OTHER ==
[~2016-12-13] VITALS: Ht 190.5 cm; Wt 137.4 kg
[2016-12-13 21:23] VITALS: TEMP 37; Ht 190.5 cm; Wt 137.4 kg
[2016-12-13] MEDS ORDERED: KETOROLAC TROMETHAMINE 30 MG/ML VIAL IV STA (22:09)
[2016-12-13] MEDS ORDERED: ALLO100T PO (22:21)
[2016-12-13 22:40] LABS: BASO % 0.3 %; BASO ABS # 0.02 K/uL (0-0.2); COMPLETE YES; EOS % 1.5 %; HEMATOCRIT 40.3 % (42-52); IG% 0.1 %; LYMPH ABS # 2.17 K/uL (1.2-3.4); MEAN CELL VOLUME 89.6 fL (80-100); MEAN CORPUSCULAR HEMOGLOBIN 31.3 pg (25-34); MEAN PLATELET VOLUME 11.1 fL (7.4-10.4); NEUT % 54.1 %; PLATELET COUNT 111 K/uL (130-400); WHITE BLOOD COUNT 7.24 K/uL (4.8-10.8)
--- NOTE | 2016-12-13 22:55 | DIAGNOSTIC IMAGING REPORT ---
RIGHT FOOT MIN 3 VIEWS ROUTINE CLINICAL HISTORY: right foot pain Right pain COMPARISON: 11/14/2016 DISCUSSION: The bones and joint spaces appear intact. There is no evidence of fracture, dislocation or bony disease. The tiny avulsion from the cuboid produces described is again present. This is considered nonacute. There is a very small remaining 3 heel spur. Subtalar joint is intact. Mild bunion deformity distal first metatarsal. IMPRESSION: Mild bunion deformity distal first metatarsal. Tiny heel spur. Small tiny old avulsion from the cuboid. No acute process. Electronically signed by: Rob Bowen M.D. 12/13/2016 10:54 PM Dictated Date/Time: 12/13/2016 10:52 PM
[2016-12-13 22:58] LABS: INR 1.1 (0.9-1.1); PROTHROMBIN TIME (PATIENT) 11.8 SECONDS (9.0-12.0)
[2016-12-13 23:02] LABS: BUN/CREATININE RATIO 16.9 (10-20); CALCIUM 8.8 mg/dl (8.5-10.1); CREATININE 1.6 mg/dl (0.60-1.40); POTASSIUM 4.3 mmol/L (3.5-5.1); URIC ACID 7.5 mg/dl (2.6-7.2)
[2016-12-13 23:14] LABS: ALB/GLOB RATIO 0.9 (0.9-2)
[2016-12-14] MEDS ORDERED: PRED20TA PO (01:00)
[2016-12-14] MEDS ORDERED: DEXAMETHASONE SOD INJ 10 MG/ML VIAL IV ONE (01:00)
[2016-12-14 01:16] VITALS: BP 129/74; PULSE 61; O2SAT 96
--- NOTE | 2016-12-14 05:43 | EMERGENCY ROOM VISIT NOTE ---
History First contact with patient: 22:09 Chief Complaint: FOOT PAIN Stated Complaint: GOUT, PAIN R FOOT History of Present Illness The patient is a 61 year old male who presents to the Emergency Room with complaints of right foot pain for the past few days has a history of gout in his foot. He describes the pain as aching, ranging in severity 6 out of 10. Palpation makes it worse and nothing makes it better. Patient denies fall, injury to the area, chest pain, dyspnea, numbness, abdominal pain, tingling, fever, chills, nausea, vomiting, diarrhea, radiating pain, recent travel, history of blood clots. He is on allopurinol. He states he's done well with prednisone in the past for gout. Review of Systems See HPI for pertinent positives & negatives. A total of 10 systems reviewed and were otherwise negative. Past Medical/Surgical History Medical Problems: (1) Cirrhosis (2) Diplopia (3) GERD (gastroesophageal reflux disease) (4) Hepatitis C (5) History of orthopedic surgery (6) Hypertension (7) Pneumonia Family History Diabetes mellitus FH: cancer FH: heart disease FH: lung disease Hypertension Social History Smoking Status: Never Smoker Alcohol Use: none Drug Use: none Marital Status: Housing Status: lives with family Occupation Status: employed Current/Historical Medications Scheduled Allopurinol (Zyloprim), 100 MG PO DAILY Cyanocobalamin (Vitamin B-12), 500 MCG PO DAILY Gabapentin (Neurontin), 600 MG PO BID Labetalol Hcl (Normodyne), 100 MG PO BID Pantoprazole (Protonix), 40 MG PO QAM Prednisone (Prednisone), 0 PO DAILY Ranitidine Hcl (Zantac), 300 MG PO BID Spironolactone (Spironolactone), 100 MG PO QAM Allergies Coded Allergies: Codeine (Verified Adverse Reaction, Mild, "MAKES ME GOOFEY", 12/13/16) Physical Exam Vital Signs Date Time Temp Pulse Resp B/P Pulse Ox O2 Delivery O2 Flow Rate FiO2 12/14/16 01:16 61 18 129/74 96 12/13/16 23:35 65 18 142/71 97 Room Air 12/13/16 21:23 37.0 78 18 177/89 98 Room Air Pain Rating (0-10): 5.0 Physical Exam VITALS: Vitals are noted on the nurse's note and reviewed by myself. Vital signs hypertensive GENERAL: Pleasant male, in no acute distress, nondiaphoretic, well-developed well-nourished. SKIN: Capillary reflex less than 2 seconds. HEENT: Normocephalic. PERRLA. EOMI. Nares patent. Mucous membranes moist. Neck is supple without nuchal rigidity. HEART: Regular rate and rhythm LUNGS: Clear to auscultation bilaterally without wheezes, rales or rhonchi. No retractions or accessory muscle use. ABDOMEN: Positive bowel sounds x 4. Normal tympanic percussion. Soft, nontender, without masses or organomegaly. Trejo sign negative. No guarding or rebound tenderness. MUSCULOSKELETAL: No gross musculoskeletal defects. No pedal edema. No calf tenderness. Right bull ladle tender to palpation over the lateral aspect with no obvious deformity. No fifth metatarsal base tenderness. No erythema, edema or lymphangitis. Pedal pulses +2 equal present bilaterally. NEURO: Patient was alert and oriented to person place and time. Normal sensation to light and sharp touch. No focal neurological deficits. Medical Decision & Procedures Laboratory Results 12/13/16 22:28 Red Blood Count 4.50, Mean Corpuscular Volume 89.6, Mean Corpuscular Hemoglobin 31.3, Mean Corpuscular Hemoglobin Concent 35.0, Mean Platelet Volume 11.1, Neutrophils (%) (Auto) 54.1, Lymphocytes (%) (Auto) 30.0, Monocytes (%) (Auto) 14.0, Eosinophils (%) (Auto) 1.5, Basophils (%) (Auto) 0.3, Neutrophils # (Auto ) 3.92, Lymphocytes # (Auto) 2.17, Monocytes # (Auto) 1.01, Eosinophils # (Auto ) 0.11, Basophils # (Auto) 0.02 12/13/16 22:28 Test 12/13/16 22:28 White Blood Count 7.24 K/uL (4.8-10.8) Red Blood Count 4.50 M/uL (4.7-6.1) Hemoglobin 14.1 g/dL (14.0-18.0) Hematocrit 40.3 % (42-52) Mean Corpuscular Volume 89.6 fL (80-100) Mean Corpuscular Hemoglobin 31.3 pg (25-34) Mean Corpuscular Hemoglobin Concent 35.0 g/dl (32-36) Platelet Count 111 K/uL (130-400) Mean Platelet Volume 11.1 fL (7.4-10.4) Neutrophils (%) (Auto) 54.1 % Lymphocytes (%) (Auto) 30.0 % Monocytes (%) (Auto) 14.0 % Eosinophils (%) (Auto) 1.5 % Basophils (%) (Auto) 0.3 % Neutrophils # (Auto) 3.92 K/uL (1.4-6.5) Lymphocytes # (Auto) 2.17 K/uL (1.2-3.4) Monocytes # (Auto) 1.01 K/uL (0.11-0.59) Eosinophils # (Auto) 0.11 K/uL (0-0.5) Basophils # (Auto) 0.02 K/uL (0-0.2) RDW Standard Deviation 44.0 fL (36.4-46.3) RDW Coefficient of Variation 13.3 % (11.5-14.5) Immature Granulocyte % (Auto) 0.1 % Immature Granulocyte # (Auto) 0.01 K/uL (0.00-0.02) Prothrombin Time 11.8 SECONDS (9.0-12.0) Prothromb Time International Ratio 1.1 (0.9-1.1) Activated Partial Thromboplast Time 26.6 SECONDS (21.0-31.0) Partial Thromboplastin Ratio 1.0 Anion Gap 12.0 mmol/L (3-11) Est Creatinine Clear Calc Drug Dose 72.5 ml/min Estimated GFR () 53.1 Estimated GFR (Non- 45.8 BUN/Creatinine Ratio 16.9 (10-20) Uric Acid 7.5 mg/dl (2.6-7.2) Calcium Level 8.8 mg/dl (8.5-10.1) Total Bilirubin 0.7 mg/dl (0.2-1) Aspartate Amino Transf (AST/SGOT) 22 U/L (15-37) Alanine Aminotransferase (ALT/SGPT) 30 U/L (12-78) Alkaline Phosphatase 87 U/L (45-117) Total Protein 8.3 gm/dl (6.4-8.2) Albumin 4.0 gm/dl (3.4-5.0) Globulin 4.3 gm/dl (2.5-4.0) Albumin/Globulin Ratio 0.9 (0.9-2) Medications Administered Medications (Trade) Dose Ordered Sig/Elliot Route Start Time Stop Time Status Last Admin Dose Admin Ketorolac Tromethamine (Toradol Inj) 30 mg NOW STAT IV 12/13/16 22:09 12/13/16 22:12 DC 12/13/16 22:32 30 MG Dexamethasone Sodium Phosphate (Decadron Inj) 10 mg NOW ONCE IV 12/14/16 01:00 12/14/16 01:01 DC 12/14/16 01:07 10 MG ED Course Prior records reviewed and summarized above. Triage Nursing notes reviewed. The patient's history was concerning for pain in the leg. Differential diagnosis: Etiologies such as gout, DVT, musculoskeletal, infection, joint effusion, trauma , lymphedema, idiopathic, CHF, as well as others were entertained.. Physical examination: The physical examination revealed no signs of infection. Neurovascularly intact. ER treatment provided: Decadron and Toradol On reassessment the patient felt better. Diagnostics interpreted by me: The labs revealed mildly elevated uric acid. Stable H&H. No worrisome leukocytosis Imaging studies: Ultrasound negative for DVT per radiology RIGHT FOOT MIN 3 VIEWS ROUTINE CLINICAL HISTORY: right foot pain Right pain COMPARISON: 11/14/2016 DISCUSSION: The bones and joint spaces appear intact. There is no evidence of fracture, dislocation or bony disease. The tiny avulsion from the cuboid produces described is again present. This is considered nonacute. There is a very small remaining 3 heel spur. Subtalar joint is intact. Mild bunion deformity distal first metatarsal. IMPRESSION: Mild bunion deformity distal first metatarsal. Tiny heel spur. Small tiny old avulsion from the cuboid. No acute process. Electronically signed by: Rob Bowen M.D. This appears to be consistent with gout. patient was neurovascularly and neurologically intact. No deficits on exam. Unremarkable workup as above. He' s done well steroids in the past and was given a taper dose pack. He was advised to follow-up family care in a few days or here in the ER sooner for severe pain, numbness, tingling, worsening signs or symptoms or as needed. No DVT on ultrasound. No fracture. No white count. By the evaluation outlined above emergent etiologies such as DVT, septic joint, trauma, infection, CHF, as well as others were deemed relatively unlikely. The pt informed about the findings as listed above. All questions were answered and pleased with the treatment. Return instructions were outlined and the patient was discharged in stable condition. Outpatient prescription management: Steroid taper pack Referral: The patient was referred back to their primary care physician for follow-up in 2 to 3 days for a recheck of the current condition. Case reviewed with my attending Medical Decision As above Impression Primary Impression: Gout of right foot Departure Information Dispostion Home / Self-Care Condition GOOD Prescriptions Prednisone (Prednisone) 20 Mg Tab 0 PO DAILY, #18 TAB 3 DAILY FOR 3 DAYS, THEN 2 DAILY FOR 3 DAYS, THEN 1 DAILY FOR 3 DAYS. Prov: Rut Vivar ., PRISCILLA 12/14/16 Forms HOME CARE DOCUMENTATION FORM, IMPORTANT VISIT INFORMATION Patient Instructions Gout Attack Tx, My [facility] Additional Instructions Prednisone taper pack as directed. Ibuprofen(Motrin, Advil) may be used for fever or pain. Use 600mg every six hours as needed. Take with food. Avoid using more than 2400mg in a 24 hour period. Do not use 2400mg per day for more than three consecutive days without physician direction. Prolonged inappropriate use can lead to stomach upset or ulcers. Rest and drink plenty of fluids. Continue current medications. Return to the ER for fevers, severe pain, chest pain, difficulty breathing, fevers, vomiting, worsening of your condition, or as needed. Follow up with your primary physician this week for a recheck of your current condition. Problem Qualifiers Primary Impression: Gout of right foot Gout etiology: unspecified cause Chronicity: acute Qualified Codes: M10.9 - Gout, unspecified
--- NOTE | 2016-12-14 06:59 | DIAGNOSTIC IMAGING REPORT ---
ULTRASOUND RIGHT LOWER EXTREMITY VENOUS CLINICAL HISTORY: Right foot pain. Edema. COMPARISON STUDY: No priors. TECHNIQUE: Real-time, grayscale, and color Doppler sonography of the deep veins of the right lower extremity was performed from the inguinal crease to the calf. Compression and augmentation were utilized. FINDINGS: There is no sonographic evidence of deep venous thrombosis identified in the right lower extremity. The common femoral, superficial femoral, and popliteal veins are patent and normally compressible. The greater saphenous vein and the profunda femoris vein at the junction with the common femoral vein are clear. The visualized calf veins are patent. IMPRESSION: There is no sonographic evidence of deep venous thrombosis identified in the right lower extremity. Electronically signed by: Rajesh Rogel M.D. 12/14/2016 6:58 AM Dictated Date/Time: 12/14/2016 6:58 AM
== END 2016-12-14 01:16 | disposition home or self-care (01) ==
LOC: C.EDB 21:17
DX: M10.9 Gout, unspecified (principal); M79.671 Pain in right foot; K21.9 Gastro-esophageal reflux disease without esophagitis; B19.20 Unspecified viral hepatitis C without hepatic coma; I10 Essential (primary) hypertension; Z83.3 Family history of diabetes mellitus; Z82.49 Family history of ischemic heart disease and other diseases of the circulatory system

== ENCOUNTER 2017-03-06 08:50 | Emergency (ER) | payer OTHER ==
[~2017-03-06] VITALS: Ht 188 cm; Wt 132.3 kg
[~2017-03-06 08:50] MED LIST changes: +ALLO100T PO; -CLC100 PO; -FRS/40 PO; +PRED20TA PO
[2017-03-06 08:53] VITALS: TEMP 36.8; Ht 188 cm; Wt 132.3 kg
[2017-03-06] MEDS ORDERED: IBUPROFEN 600 MG TAB PO STA (09:14)
--- NOTE | 2017-03-06 09:18 | EMERGENCY ROOM VISIT NOTE ---
History Report prepared by Minda: Lisbeth Conteh Under the Supervision of: Dr. Zacarias Smart M.D. First contact with patient: 09:01 Chief Complaint: FOOT PAIN Stated Complaint: RT FOOT/TOES-GOUT History of Present Illness The patient is a 61 year old male who presents to the Emergency Room with complaints of persistent right foot pain that began prior to arrival. He currently rates his discomfort as an 8/10 in severity. The patient reports a history of gout, noting that his pain today feels similar to his previous episodes of gout attacks. He states that he has been given Allopurinol in the past for his gout, noting that it had alleviated his pain in the past. The patient describes his pain as a shooting pain in his foot. He denies any other joint pain. The patient denies any chest pain or abdominal pain. The patient states that his past episodes of gout have been located to his left toes. The patient reports that he doubled his diuretic dosage over the last three days. Source of History: patient Onset: prior to arrival Position: foot (right) Symptom Intensity: 8/10 Quality: other (shooting) Timing: other (persistent) Review of Systems All systems have been listed, reviewed, and are negative other than those previously mentioned. Please see Additional Medical History Sheet. Past Medical & Surgical Medical Problems: (1) Cirrhosis (2) Diplopia (3) GERD (gastroesophageal reflux disease) (4) Hepatitis C (5) History of orthopedic surgery (6) Hypertension (7) Pneumonia Family History Diabetes mellitus FH: cancer FH: heart disease FH: lung disease Hypertension Social History Smoking Status: Never Smoker Alcohol Use: none Drug Use: none Marital Status: Housing Status: lives with family Occupation Status: employed Current/Historical Medications Scheduled Allopurinol (Zyloprim), 100 MG PO DAILY Cyanocobalamin (Vitamin B-12), 500 MCG PO DAILY Gabapentin (Neurontin), 600 MG PO BID Labetalol Hcl (Normodyne), 100 MG PO BID Pantoprazole (Protonix), 40 MG PO QAM Ranitidine Hcl (Zantac), 300 MG PO BID Spironolactone (Spironolactone), 100 MG PO QAM Allergies Coded Allergies: Codeine (Verified Adverse Reaction, Mild, "MAKES ME GOOFEY", 03/06/17) Physical Exam Vital Signs Date Time Temp Pulse Resp B/P (MAP) Pulse Ox O2 Delivery O2 Flow Rate FiO2 03/06/17 10:58 67 17 153/118 94 03/06/17 08:53 36.8 113 17 159/91 95 Room Air Physical Exam GENERAL: Patient awake, alert, oriented x 3. Patient follows commands. Patient does not appear toxic. Patient is adequately hydrated and well- nourished. SKIN: No erythema, pallor, cyanosis or rash HEENT: Normal head, pupils equal, reactive to light and accommodation. Ears normal. Oral cavity and posterior pharynx appear normal. Neck: Without adenopathy, no neck vein distention. LUNGS: Clear to auscultation. No wheezes, no rales, no rhonchi. HEART: No murmurs. No gallops. No rubs ABDOMEN: Soft, nontender. EXTREMITIES: Tenderness along dorsum of the right foot, lateral aspect slightly more than medial. Tenderness int he first MP joint, no significant erythema. Patient is exquisitely tender. Knees and other joints are nontender. NEUROLOGIC: Cranial nerves II-XII within normal limits. No gross motor sensory function deficits. Medical Decision & Procedures ER Provider Diagnostic Interpretation: X ray results are stated below per my interpretation and the radiologist's interpretation. RIGHT FOOT MIN 3 VIEWS ROUTINE CLINICAL HISTORY: Right foot pain. Possible gout. COMPARISON: Right foot radiographs December 13, 2016. FINDINGS: Tarsometatarsal joints are intact. No acute fracture or suspicious lesion is present. There are no soft tissue calcifications. No erosions are identified. Minimal arthritis is noted within several articulations of the right foot. IMPRESSION: 1. No acute fracture or dislocation of the right foot. 2. No erosions or soft tissue calcifications to strongly suggest gout by radiography. Minimal nonspecific soft tissue swelling along the medial right first metatarsophalangeal joint. Electronically signed by: Juaquin De La Cruz M.D. 03/06/2017 10:00 AM Dictated Date/Time: 03/06/2017 9:57 AM Laboratory Results 03/06/17 09:30 Red Blood Count 4.78, Mean Corpuscular Volume 90.6, Mean Corpuscular Hemoglobin 31.2, Mean Corpuscular Hemoglobin Concent 34.4, Mean Platelet Volume 11.5, Neutrophils (%) (Auto) 70.5, Lymphocytes (%) (Auto) 17.1, Monocytes (%) (Auto) 11.5, Eosinophils (%) (Auto) 0.7, Basophils (%) (Auto) 0.1, Neutrophils # (Auto ) 5.27, Lymphocytes # (Auto) 1.28, Monocytes # (Auto) 0.86, Eosinophils # (Auto ) 0.05, Basophils # (Auto) 0.01 03/06/17 09:30 Test 03/06/17 09:30 White Blood Count 7.48 K/uL (4.8-10.8) Red Blood Count 4.78 M/uL (4.7-6.1) Hemoglobin 14.9 g/dL (14.0-18.0) Hematocrit 43.3 % (42-52) Mean Corpuscular Volume 90.6 fL (80-100) Mean Corpuscular Hemoglobin 31.2 pg (25-34) Mean Corpuscular Hemoglobin Concent 34.4 g/dl (32-36) Platelet Count 107 K/uL (130-400) Mean Platelet Volume 11.5 fL (7.4-10.4) Neutrophils (%) (Auto) 70.5 % Lymphocytes (%) (Auto) 17.1 % Monocytes (%) (Auto) 11.5 % Eosinophils (%) (Auto) 0.7 % Basophils (%) (Auto) 0.1 % Neutrophils # (Auto) 5.27 K/uL (1.4-6.5) Lymphocytes # (Auto) 1.28 K/uL (1.2-3.4) Monocytes # (Auto) 0.86 K/uL (0.11-0.59) Eosinophils # (Auto) 0.05 K/uL (0-0.5) Basophils # (Auto) 0.01 K/uL (0-0.2) RDW Standard Deviation 43.8 fL (36.4-46.3) RDW Coefficient of Variation 13.4 % (11.5-14.5) Immature Granulocyte % (Auto) 0.1 % Immature Granulocyte # (Auto) 0.01 K/uL (0.00-0.02) Anion Gap 7.0 mmol/L (3-11) Est Creatinine Clear Calc Drug Dose 74.8 ml/min Estimated GFR () 57.4 Estimated GFR (Non- 49.5 BUN/Creatinine Ratio 15.6 (10-20) Uric Acid 4.4 mg/dl (2.6-7.2) Calcium Level 9.1 mg/dl (8.5-10.1) Laboratory results as stated above per my review. Medications Administered Medications (Trade) Dose Ordered Sig/Elliot Route Start Time Stop Time Status Last Admin Dose Admin Ibuprofen (Motrin Tab) 600 mg NOW STAT PO 03/06/17 09:14 03/06/17 09:16 DC 03/06/17 09:19 600 MG ED Course 905: Past medical records reviewed. The patient was evaluated in room B9. A complete history and physical examination was performed. 14: Ordered Motrin Tab 600 mg PO. 1033: I reevaluated the patient and he is doing well. I discussed all the exam findings with him and I discussed the treatment plan. He verbalized complete understanding and agreement. He is ready to go home. Medical Decision Nurses notes reviewed. Medical history sheet reviewed. Differential diagnosis includes but is not limited to: gout, cellulitis, sprain. Patient is here with marked pain in his right foot. He has a prior history of gout and is on allopurinol. The patient recently increased Lasix due to some weight gain and extremity swelling. Multiple labs were obtained today. The uric acid is not elevated. Patient is on allopurinol. X-ray does not reveal any fractures or erosions. Patient most likely has another gout flare precipitated by increased diuretic use. The patient was given ibuprofen here and will continue that medication at home. The patient will use diuretics more sparingly. Medication Reconciliation: I attest that I have personally reviewed the patient' s current medication list. Blood Pressure Screening: Patient was found to have an elevated blood pressure and was referred to their primary doctor for recheck and further treatment. Impression Primary Impression: Gout flare Scribe Attestation The scribe's documentation has been prepared under my direction and personally reviewed by me in its entirety. I confirm that the note above accurately reflects all work, treatment, procedures, and medical decision making performed by me. Departure Information Dispostion Home / Self-Care Referrals No Doctor, Assigned (PCP) Forms HOME CARE DOCUMENTATION FORM, IMPORTANT VISIT INFORMATION Patient Instructions ED Arthritis Gout, [facility] Additional Instructions Do not take extra diuretics like spironolactone or Lasix unless absolutely necessary. Motrin 600 mg every 6 hours until pain has resolved. Follow-up with your family physician within the next 7 days regarding gout and blood pressure check. Return here sooner if the pain is getting worse.
[2017-03-06 09:47] LABS: BASO % 0.1 %; BASO ABS # 0.01 K/uL (0-0.2); COMPLETE YES; EOS % 0.7 %; HEMATOCRIT 43.3 % (42-52); IG% 0.1 %; LYMPH % 17.1 %; LYMPH ABS # 1.28 K/uL (1.2-3.4); MEAN CELL VOLUME 90.6 fL (80-100); MEAN CORPUSCULAR HEMOGLOBIN 31.2 pg (25-34); MEAN CORPUSCULAR HGB CONC 34.4 g/dl (32-36); MEAN PLATELET VOLUME 11.5 fL (7.4-10.4); MONO % 11.5 %; NEUT % 70.5 %; PLATELET COUNT 107 K/uL (130-400); RED BLOOD COUNT 4.78 M/uL (4.7-6.1); WHITE BLOOD COUNT 7.48 K/uL (4.8-10.8)
--- NOTE | 2017-03-06 10:01 | DIAGNOSTIC IMAGING REPORT ---
RIGHT FOOT MIN 3 VIEWS ROUTINE CLINICAL HISTORY: Right foot pain. Possible gout. COMPARISON: Right foot radiographs December 13, 2016. FINDINGS: Tarsometatarsal joints are intact. No acute fracture or suspicious lesion is present. There are no soft tissue calcifications. No erosions are identified. Minimal arthritis is noted within several articulations of the right foot. IMPRESSION: 1. No acute fracture or dislocation of the right foot. 2. No erosions or soft tissue calcifications to strongly suggest gout by radiography. Minimal nonspecific soft tissue swelling along the medial right first metatarsophalangeal joint. Electronically signed by: Juaquin De La Cruz M.D. 03/06/2017 10:00 AM Dictated Date/Time: 03/06/2017 9:57 AM
[2017-03-06 10:04] LABS: BUN/CREATININE RATIO 15.6 (10-20); CALCIUM 9.1 mg/dl (8.5-10.1); CREATININE 1.5 mg/dl (0.60-1.40)
[2017-03-06 10:05] LABS: URIC ACID 4.4 mg/dl (2.6-7.2)
[2017-03-06 10:58] VITALS: BP 153/118; PULSE 67; O2SAT 94
== END 2017-03-06 11:00 | disposition home or self-care (01) ==
LOC: C.EDB 08:51
DX: M10.9 Gout, unspecified (principal); K74.60 Unspecified cirrhosis of liver; H53.2 Diplopia; K21.9 Gastro-esophageal reflux disease without esophagitis; B19.20 Unspecified viral hepatitis C without hepatic coma; I10 Essential (primary) hypertension; Z83.3 Family history of diabetes mellitus; Z82.49 Family history of ischemic heart disease and other diseases of the circulatory system

== ENCOUNTER 2017-09-04 20:03 | Emergency (ER) | payer OTHER ==
[~2017-09-04] VITALS: Ht 188 cm; Wt 137.9 kg
[~2017-09-04 20:03] MED LIST changes: -PRED20TA PO
[2017-09-04 20:04] VITALS: TEMP 36.3; Ht 188 cm; Wt 137.9 kg
[2017-09-04 20:22] VITALS: O2SAT 96
[2017-09-04 20:31] LABS: BASO % 0.2 %; BASO ABS # 0.02 K/uL (0-0.2); COMPLETE YES; EOS % 2.4 %; HEMATOCRIT 41.6 % (42-52); IG% 0.2 %; LYMPH % 29.1 %; LYMPH ABS # 2.35 K/uL (1.2-3.4); MEAN CELL VOLUME 92.9 fL (80-100); MEAN CORPUSCULAR HEMOGLOBIN 31.9 pg (25-34); MEAN CORPUSCULAR HGB CONC 34.4 g/dl (32-36); MEAN PLATELET VOLUME 11.6 fL (7.4-10.4); MONO % 14.4 %; NEUT % 53.7 %; PLATELET COUNT 125 K/uL (130-400); RED BLOOD COUNT 4.48 M/uL (4.7-6.1); WHITE BLOOD COUNT 8.08 K/uL (4.8-10.8)
[2017-09-04 20:46] LABS: INR 1.1 (0.9-1.1); PROTHROMBIN TIME (PATIENT) 11.4 SECONDS (9.0-12.0)
[2017-09-04 20:49] LABS: ALT/SGPT 21 U/L (12-78); BLOOD UREA NITROGEN 29 mg/dl (7-18); BUN/CREATININE RATIO 18.3 (10-20); CALCIUM 8.8 mg/dl (8.5-10.1); CARBON DIOXIDE 28 mmol/L (21-32); CHLORIDE 102 mmol/L (98-107); CREATININE 1.56 mg/dl (0.60-1.40); GLUCOSE 72 mg/dl (70-99); POTASSIUM 3.6 mmol/L (3.5-5.1); SODIUM 136 mmol/L (136-145)
[2017-09-04 20:54] LABS: ALKALINE PHOSPHATASE 104 U/L (45-117); AST/SGOT 20 U/L (15-37)
--- NOTE | 2017-09-04 20:59 | DIAGNOSTIC IMAGING REPORT ---
CHEST ONE VIEW PORTABLE CLINICAL HISTORY: Chest pain. COMPARISON STUDY: Chest radiograph September 30, [address] October 02, 2016. FINDINGS: Low volumes are normal. No pneumothorax or pleural effusion is present. There is no evidence of pulmonary edema. There is no consolidation to suggest pneumonia. Cardiomediastinal silhouette is stable. Pulmonary vascularity is normal. IMPRESSION: No acute cardiopulmonary findings. Electronically signed by: Juaquin De La Cruz M.D. 09/04/2017 8:58 PM Dictated Date/Time: 09/04/2017 8:57 PM
[2017-09-04] MEDS ORDERED: NRN600 PO (21:09)
[2017-09-04] MEDS ORDERED: SPIR100T PO (21:09)
[2017-09-04] MEDS ORDERED: COUGH DROP (SUGAR FREE) LOZ 24 LOZ/1 BOX PO STA (21:10)
[2017-09-04] MEDS ORDERED: GUAIFENESIN 600 MG TABCR PO STA (21:10)
[2017-09-04] MEDS ORDERED: DOXYCYCLINE HYCLATE 100 MG CAP PO STA ×2 (21:56→22:39)
--- NOTE | 2017-09-04 22:31 | EMERGENCY ROOM VISIT NOTE ---
History Report prepared by Minda: Cris Pandey Under the Supervision of: Dr. Chuck Chu M.D. First contact with patient: 20:13 Chief Complaint: CARDIAC ASSESSMENT Stated Complaint: CHEST TIGHTNESS, COUGH Nursing Triage Summary: patient states for past three weeks he has had productive cough and then today at 0300 began having sharp pain in his chest intermittently. patient states when he coughs pain worsens. History of Present Illness The patient is a 62 year old W M with a past medical history of HTN, cirrhosis, hepatitis C, and PNA who presents to the ED with a constant chest pain beginning 18 hours RDA. Positive for chest pain, mild shortness of breath, dizziness, leg swelling, and productive cough with yellow sputum. He currently rates his pain a 5/10 in severity. Negative leg pain, urinary symptoms, and recent travels. The patient reports that his chest pain worsens with his cough. He notes that he has had a cough for three weeks. The patient takes ibuprofen as needed. He denies a history of smoking. Source of History: patient Onset: 18 hours RDA Position: chest Symptom Intensity: 5/10 Quality: other (chest pain) Timing: constant Modifying Factors (Worsening): other (with cough) Associated Symptoms: + cough (productive cough with yellow sputum ), + chest pain, + SOB, No urinary symptoms Note: He notes dizziness or leg swelling. He denies leg pain or recent travels. Review of Systems See HPI for pertinent positives and negatives. A total of ten systems were reviewed and were otherwise negative. Past Medical & Surgical Medical Problems: (1) Cirrhosis (2) Diplopia (3) GERD (gastroesophageal reflux disease) (4) Hepatitis C (5) History of orthopedic surgery (6) Hypertension (7) Pneumonia Family History Diabetes mellitus FH: cancer FH: heart disease FH: lung disease Hypertension Social History Smoking Status: Never Smoker Alcohol Use: none Drug Use: none Marital Status: Housing Status: lives with family Occupation Status: employed Current/Historical Medications Scheduled Allopurinol (Zyloprim), 100 MG PO DAILY Cyanocobalamin (Vitamin B-12), 500 MCG PO DAILY Doxycycline Monohydrate (Monodox), 100 MG PO BID Gabapentin (Gabapentin), 600 MG PO BID Labetalol Hcl (Normodyne), 100 MG PO BID Pantoprazole (Protonix), 40 MG PO QAM Ranitidine Hcl (Zantac), 300 MG PO BID Spironolactone (Aldactone), 100 MG PO QAM Allergies Coded Allergies: Codeine (Verified Adverse Reaction, Mild, "MAKES ME GOOFEY", 09/04/17) Physical Exam Vital Signs Date Time Temp Pulse Resp B/P (MAP) Pulse Ox O2 Delivery O2 Flow Rate FiO2 09/04/17 22:50 80 18 162/96 99 09/04/17 21:36 81 20 152/120 91 Room Air 09/04/17 21:06 70 09/04/17 20:22 96 Room Air 09/04/17 20:17 96 Room Air 09/04/17 20:04 36.3 104 20 177/113 99 Room Air Physical Exam GENERAL: Obese, awake, alert, well-appearing, non-toxic in appearance, NAD HENT: Normocephalic, atraumatic. EYES: Normal conjunctiva. Sclera non-icteric. NECK: Supple. No nuchal rigidity. FROM. RESPIRATORY: CTAB, no rhonchi, wheezing, crackles CARDIAC: Irregular, not tachycardic , no MRG ABDOMEN: Soft, NTND, BS+ MSK: No chest wall TTP. 1-2+ LE edema, appears symmetric, no calf pain. NEURO: GCS 15, CN 2-12 intact, moves all 4s on command SKIN: No rash or jaundice noted. Medical Decision & Procedures ER Provider Diagnostic Interpretation: Radiology results as stated below per my review and radiologist interpretation: CHEST ONE VIEW PORTABLE CLINICAL HISTORY: Chest pain. COMPARISON STUDY: Chest radiograph September 30, [address] October 02, 2016. FINDINGS: Low volumes are normal. No pneumothorax or pleural effusion is present. There is no evidence of pulmonary edema. There is no consolidation to suggest pneumonia. Cardiomediastinal silhouette is stable. Pulmonary vascularity is normal. IMPRESSION: No acute cardiopulmonary findings. Electronically signed by: Juaquin De La Cruz M.D. 09/04/2017 8:58 PM Dictated Date/Time: 09/04/2017 8:57 PM Laboratory Results 09/04/17 20:20 Red Blood Count 4.48, Mean Corpuscular Volume 92.9, Mean Corpuscular Hemoglobin 31.9, Mean Corpuscular Hemoglobin Concent 34.4, Mean Platelet Volume 11.6, Neutrophils (%) (Auto) 53.7, Lymphocytes (%) (Auto) 29.1, Monocytes (%) (Auto) 14.4, Eosinophils (%) (Auto) 2.4, Basophils (%) (Auto) 0.2, Neutrophils # (Auto ) 4.34, Lymphocytes # (Auto) 2.35, Monocytes # (Auto) 1.16, Eosinophils # (Auto ) 0.19, Basophils # (Auto) 0.02 09/04/17 20:20 Test 09/04/17 20:20 White Blood Count 8.08 K/uL (4.8-10.8) Red Blood Count 4.48 M/uL (4.7-6.1) Hemoglobin 14.3 g/dL (14.0-18.0) Hematocrit 41.6 % (42-52) Mean Corpuscular Volume 92.9 fL (80-100) Mean Corpuscular Hemoglobin 31.9 pg (25-34) Mean Corpuscular Hemoglobin Concent 34.4 g/dl (32-36) Platelet Count 125 K/uL (130-400) Mean Platelet Volume 11.6 fL (7.4-10.4) Neutrophils (%) (Auto) 53.7 % Lymphocytes (%) (Auto) 29.1 % Monocytes (%) (Auto) 14.4 % Eosinophils (%) (Auto) 2.4 % Basophils (%) (Auto) 0.2 % Neutrophils # (Auto) 4.34 K/uL (1.4-6.5) Lymphocytes # (Auto) 2.35 K/uL (1.2-3.4) Monocytes # (Auto) 1.16 K/uL (0.11-0.59) Eosinophils # (Auto) 0.19 K/uL (0-0.5) Basophils # (Auto) 0.02 K/uL (0-0.2) RDW Standard Deviation 45.0 fL (36.4-46.3) RDW Coefficient of Variation 13.3 % (11.5-14.5) Immature Granulocyte % (Auto) 0.2 % Immature Granulocyte # (Auto) 0.02 K/uL (0.00-0.02) Prothrombin Time 11.4 SECONDS (9.0-12.0) Prothromb Time International Ratio 1.1 (0.9-1.1) Activated Partial Thromboplast Time 26.4 SECONDS (21.0-31.0) Partial Thromboplastin Ratio 1.0 Anion Gap 7.0 mmol/L (3-11) Est Creatinine Clear Calc Drug Dose 72.6 ml/min Estimated GFR () 54.4 Estimated GFR (Non- 46.9 BUN/Creatinine Ratio 18.3 (10-20) Calcium Level 8.8 mg/dl (8.5-10.1) Total Bilirubin 0.6 mg/dl (0.2-1) Direct Bilirubin 0.2 mg/dl (0-0.2) Aspartate Amino Transf (AST/SGOT) 20 U/L (15-37) Alanine Aminotransferase (ALT/SGPT) 21 U/L (12-78) Alkaline Phosphatase 104 U/L (45-117) Troponin I < 0.015 ng/ml (0-0.045) Pro-B-Type Natriuretic Peptide 494 pg/ml (0-900) Total Protein 8.3 gm/dl (6.4-8.2) Albumin 4.0 gm/dl (3.4-5.0) Lipase 188 U/L (73-393) Laboratory results reviewed by me Medications Administered Medications (Trade) Dose Ordered Sig/Elliot Route Start Time Stop Time Status Last Admin Dose Admin Menthol (Nice Elieser) 1 elieser NOW STAT PO 09/04/17 21:10 09/04/17 21:11 DC 09/04/17 21:10 1 ELIESER Guaifenesin (Mucinex Contr Rel Tab) 1,200 mg ONE STAT PO 09/04/17 21:10 09/04/17 21:11 DC 09/04/17 21:28 1,200 MG Doxycycline Hyclate (Vibramycin Cap) 100 mg NOW STAT PO 09/04/17 21:56 09/04/17 21:57 DC 09/04/17 22:22 100 MG Doxycycline Hyclate (Vibramycin Cap) 200 mg NOW STAT PO 09/04/17 22:39 09/04/17 22:40 DC 09/04/17 22:43 200 MG ECG Indication: chest pain Rate (beats per minute): 88 Rhythm: atrial flutter (with 2 to 1 block) Findings: other (Normal axis. ) ED Course 2034: The patient was evaluated in room C1. A complete history and physical exam was performed. 2127: I spoke with Dr. Larsen, underwear finisher. We discussed the patients case. The patient will follow up as an outpatient. 8: I reassessed the patient at this time. He is feeling better and resting comfortably. I discussed the results and treatment plan with the patient. I answered all pertaining questions that he had. He expressed understanding and verbalized agreement. The patient will be discharged home. Medical Decision The patient is a 62 year old W M with a past medical history of HTN, cirrhosis, hepatitis C, and PNA who presents to the ED with a constant chest pain beginning 18 hours RDA. Differential diagnosis: Etiologies such as cardiac ischemia, aortic dissection, pulmonary embolism, pneumonia, pneumothorax, musculoskeletal, infections, pericarditis, myocarditis , esophageal rupture, gastrointestinal, as well as others were entertained. Patient was seen and evaluated the bedside. Patient is fairly well-appearing that he has complained of some URI type symptoms with some associated productive sputum and cough. He states that when he does cough it is have some chest pains as left anterior chest. Patient states he does not get short of breath on exertion he does not have any orthopnea. Patient denies any exertional chest pain. Patient does have lower extremity swelling which is chronic for which she takes diuretics. Patient did have blood work completed along with an EKG, troponin, BNP, chest x-ray. Patient's chest x-ray was negative acute. Patient's EKG did show atrial flutter with variable conduction. Patient's [id number] score would be a 2 or 3. I discussed patient with the underwear finisher stated that he could increase his dose of labetalol and take it 3 times a day instead of just twice per day. No anticoagulant's at this time but perhaps a discussion with outpatient cardiology. Patient's headache normal white blood cell count. Patient BMP within normal limits. Patient troponin negative. Given the patient's history and symptoms less likely to be ACS this sounds more infectious in nature. Patient was given symptomatically treatment and the patient states he felt somewhat improved. Patient was told that he will need to follow-up with cardiology and was given the recommendations with regard to the labetalol. Patient was given a first dose of doxycycline to avoid any QT prolongation given his arrhythmia. Patient was also given the medications for tomorrow with the idea that he should obtain his prescription by Wednesday. Patient was also told that he may continue symptomatic control with [id number] type treatments of medicines. Patient stated that he would try to get a hold of the [employer] but if not he was given the [facility] cardiology clinic number which she would call with instructions for further follow-up. Patient was amenable to this plan of care. Patient was deemed suitable for outpatient follow-up and treatment.Patient was given strict follow- up, discharge, and return precautions. All questions were answered. Patient was deemed suitable for outpatient follow-up at this time. Patient agreed with the plan of care and was safely discharged home. Medication Reconcilliation Current Medication List: was personally reviewed by me Blood Pressure Screening Patient's blood pressure: Elevated blood pressure Blood pressure disposition: Referred to PCP Consults Time Called: 2123 Consulting Physician: Dr. Larsen, underwear finisher Returned Call: [address] Larsen, underwear finisher. We discussed the patients case. The patient will follow up as an outpatient. Impression Primary Impression: Cardiac arrhythmia Additional Impressions: Cough Atrial flutter Bronchitis Scribe Attestation The scribe's documentation has been prepared under my direction and personally reviewed by me in its entirety. I confirm that the note above accurately reflects all work, treatment, procedures, and medical decision making performed by me. Departure Information Dispostion Home / Self-Care Prescriptions Doxycycline Monohydrate (Monodox) 100 Mg Cap 100 MG PO BID for 7 Days, #14 CAP Prov: Chuck Chu M.D. 09/04/17 Referrals No Doctor, Assigned (PCP) Patient Instructions Bronchitis Chronic Dc, Chest Cold (Bronchitis) - [facility], My [facility] Additional Instructions Please return to the emergency department if you have worsening or recurrent symptoms not amenable to at-home treatment. Please call for a follow-up appointment with her primary care physician. Please take your medications as prescribed. If you have other concerns and/or complaints please feel free to also call your primary care physician's office or return the ED for further evaluation, management, and treatment. You were found to have an elevated blood pressure today (>120 sytolic or >90 diastolic). Per medicare guidelines, you need to follow up with this blood pressure screening with your Primary Care Physician (PCP). For a new PCP call [phone]. Consider additional [id number] type medications to help with her cough. He may choose an antitussive which helps suppress her cough. He may also try something that helps with sputum production and cough like Mucinex which is an expectorant. He may also try occasional Motrin and Tylenol but be reminded that the Motrin may cause worsening kidney disease in the Tylenol may not be advised giving her prior history of cirrhosis. Please follow-up with your physician at the [place] for further recommendations. That you follow-up with your [place] physician for an irregular heart rest from called [facility]. If you're unable to go through them please consider calling the [facility] cardiology office and state that he was seen in the emergency department and that her case was discussed with Dr. Larsen. Call the [facility]'s [place] number at . Also as we discussed these take your labetalol 3 times daily instead of just twice daily. You may take 400 mg Ibuprofen every 6 hours as needed for pain with food for no more than 2 consecutive days. You may take tylenol 650 mg every 6 hours as needed for pain. You may take motrin and tylenol separately or at the same time. Take your medications as prescribed. You have been examined and treated today on an emergency basis only. This is not a substitute for, or an effort to provide, complete comprehensive medical care. It is impossible to recognize and treat all injuries or illnesses in a single emergency department visit. It is therefore important that you follow up closely with [facility], your PCP, and/or your specialist(s). Call as soon as possible for an appointment. Thank you for your time and consideration. I look forward to speaking with you again soon. Please don't hesitate to call us if you have any questions. Problem Qualifiers Primary Impression: Cardiac arrhythmia Arrhythmia type: atrial flutter Atrial flutter type: unspecified Qualified Codes: I48.92 - Unspecified atrial flutter Additional Impressions: Atrial flutter Atrial flutter type: unspecified Qualified Codes: I48.92 - Unspecified atrial flutter
[2017-09-04] MEDS ORDERED: DOXY100C76 PO (22:32)
[2017-09-04] MEDS ORDERED: EMPTY 8 DRAM VIAL ONE (22:41)
[2017-09-04 22:50] VITALS: BP 162/96; PULSE 80; O2SAT 99
== END 2017-09-04 22:50 | disposition home or self-care (01) ==
LOC: C.EDB 20:04 → C.EDC 22:50
DX: I48.92 Unspecified atrial flutter (principal); J40 Bronchitis, not specified as acute or chronic; I10 Essential (primary) hypertension; K74.60 Unspecified cirrhosis of liver; B19.20 Unspecified viral hepatitis C without hepatic coma; Z87.01 Personal history of pneumonia (recurrent); K21.9 Gastro-esophageal reflux disease without esophagitis; Z83.3 Family history of diabetes mellitus; Z80.9 Family history of malignant neoplasm, unspecified; Z82.49 Family history of ischemic heart disease and other diseases of the circulatory system; Z79.899 Other long term (current) drug therapy

== ENCOUNTER 2019-07-12 11:33 | Inpatient (IN) ==
[2019-07-12 12:35] LABS: Basophils # (auto) 0.03 K/uL (0-0.2); Basophils % (auto) 0.6 %; Eosinophils # (auto) 0.09 K/uL (0-0.5); Eosinophils % (auto) 1.7 %; Hematocrit (blood only) 38.1 % (42-52); Hemoglobin 13.6 g/dL (14.0-18.0); Immature Granulocytes # (auto) 0.01 K/uL (0.00-0.02); Immature Granulocytes % (auto) 0.2 %; Lymphocytes # (auto) 1.96 K/uL (1.2-3.4); Mean Corpuscular Hemoglobin 33.4 pg (25-34); Mean Corpuscular Hgb Conc 35.7 g/dL (32-36); Mean Corpuscular Volume 93.6 fL (80-100); Mean Platelet Volume 11.9 fL (7.4-10.4); Monocytes # (auto) 0.57 K/uL (0.11-0.59); Neutrophils % (auto) 48.5 %; Platelet Count 139 K/uL (130-400); RDW Coefficient of Variation 12.4 % (11.5-14.5); RDW Standard Deviation 42.8 fL (36.4-46.3); Red Blood Count 4.07 M/uL (4.7-6.1); White Blood Count 5.16 K/uL (4.8-10.8)
[2019-07-12 12:42] LABS: Alanine Aminotransferase 18 U/L (12-78); Albumin Level 4.7 gm/dl (3.4-5.0); Aspartate Aminotransferase 16 U/L (15-37); BUN Creatinine Ratio 15.8 (10-20); Blood Urea Nitrogen 52 mg/dl (7-18); Calcium 10.2 mg/dl (8.5-10.1); Carbon Dioxide 20 mmol/L (21-32); Chloride 100 mmol/L (98-107); Creatinine Clr Calc Pharmacy 29.7 ml/min; Est GFR (African American) 21.5; Est GFR (Non-African American) 18.6; Glucose 89 mg/dl (70-99); Lipase 210 U/L (73-393); Potassium 5.4 mmol/L (3.5-5.1); Sodium 131 mmol/L (136-145)
[2019-07-12 12:45] LABS: Albumin Globulin Ratio 1.3 (0.9-2); Alkaline Phosphatase 100 U/L (45-117); Bilirubin,Total 0.8 mg/dl (0.2-1); Globulin 3.7 gm/dl (2.5-4.0); Total Protein 8.5 gm/dl (6.4-8.2); Troponin I < 0.015 ng/ml (0-0.045)
[2019-07-12] MEDS ORDERED: SODIUM CHLORIDE 0.9% 1000ML 1,000 ML IV SCH (12:45)
[2019-07-12] MEDS ORDERED: DEXTROSE 50% 50 ML SYRINGE IV STA (12:45)
[2019-07-12] MEDS ORDERED: NovoLIN-R INSULIN PER UNIT CHARGE IV STA (12:45)
--- NOTE | 2019-07-12 12:59 | XRay Report ---
XR chest 1V portable CLINICAL HISTORY: Atypical chest pain COMPARISON STUDY: 09/04/2017 FINDINGS: The cardiac and mediastinal contours are normal. There is no evidence of focal pulmonary co nsolidation. There is no evidence of failure. No pleural effusions are visualized.[No pneumothorax is visualized. IMPRESSION: No active disease in the chest. Electronically signed by: Bob Briceno M.D. 07/12/2019 12:58 PM
--- NOTE | 2019-07-12 13:31 | CT Scan Report ---
CT head/brain wo con CLINICAL HISTORY: Vertigo, headaches. COMPARISON STUDY: November 16, 2013 TECHNIQUE: Axial CT of the brain is performed from the vertex to the skull base. IV contrast was not administered for this examination. A dose lowering technique was utilized adhering to the principles of ALARA. CT DOSE: 614.27 mGy.cm FINDINGS: No intra or extra-axial mass lesions are visualized. There is no CT evidence of acute cortical infarc tion. There is no evidence of midline shift. There is no acute hemorrhage. No calvarial fractures ar e visualized. There are mild white matter hypodensities likely on a small vessel basis. There is no evidence of pathologic ventricular dilatation. There is no evidence of acute sinusitis IMPRESSION: No acute intracranial findings Electronically signed by: Bob Briceno M.D. 07/12/2019 1:29 PM
--- NOTE | 2019-07-12 14:25 | History & Physical Report ---
Date of Service July 12, 2019 Assessment & Plan (1) ARF (acute renal failure): Hold lisinopril. Hold Aldactone. Add IV fluids. Consult nephrology. (2) Hypertension: c/w coreg Present on Admission?: Yes (3) GERD (gastroesophageal reflux disease): c/w PPI Present on Admission?: Yes (4) Cirrhosis: Present on Admission?: Yes (5) Hepatitis C: (6) Hyperkalemia: Patient received insulin and dextrose in the ER. Repeat labs in a.m. Present on Admission?: Yes History of Present Illness Chief Complaint: Generalized weakness Primary Care Provider: NO PCP The patient is 64-year-old male who is complaining of generalized weakness for last 3 days. He is complaining of fatigue and malaise. He also complains of dizziness which he described as lightheadedness. He has decreased oral intake for the last 3 weeks. He also has noticed weight loss of approximately 12 pounds. He was being followed up by the [facility]. His symptoms persisted so he presented presented to the ER. The further work-up done in the ER showed that the patient had acute on chronic renal failure and hyperkalemia. The patient has been taking large doses of Mo alice for his neck pain. The patient was started on IV fluids. He received insulin and dextrose for hyperkalemia. He will be admitted to telemetry floor for further evaluation and management. Allergies Allergy/AdvReac Type Severity Reaction Status Date / Time codeine AdvReac Mild "MAKES ME Verified 07/12/19 13:39 GOOFEY" gabapentin AdvReac Unknown Unverified 07/12/19 13:39 hydralazine AdvReac Unresponsiv Unverified 07/12/19 13:39 e Home Medications Home Medications Medication Instructions Recorded Confirmed Type allopurinol 300 mg PO DAILY 07/12/19 07/12/19 History carvedilol 12.5 mg PO BID 07/12/19 07/12/19 History cholecalciferol (vitamin D3) 2,000 unit PO DAILY 07/12/19 07/12/19 History docusate sodium 100 mg PO TID PRN 07/12/19 07/12/19 History duloxetine 30 mg PO DAILY 07/12/19 07/12/19 History hydrophilic cream 1 applic TOPICAL DAILY 07/12/19 07/12/19 History ibuprofen 800 mg PO TID PRN 07/12/19 07/12/19 History lisinopril 5 mg PO DAILY 07/12/19 07/12/19 History pantoprazole 40 mg PO DAILY 07/12/19 07/12/19 History ranitidine HCl 150 mg PO BID PRN 07/12/19 07/12/19 History spironolactone 100 mg PO QAM 07/12/19 07/12/19 History Past Med/Surg History Social History Preferred Language: Korean Communication Ability: Effective Barrel Loader And Cleaner Required: No Beliefs That Will Affect Care: None Current Living Situation: Alone Other Information That Helps Us Care for You: No Feels Safe at Home: Yes Safety Concerns: Feels Safe At This Time Smoking Status: Never smoker Do You Dip or Chew Tobacco: No ; Second Hand Exposure: No ; Tobacco Cessation Education Requested by Patient: No Hx Alcohol Use: No Hx Substance Use: No Review of Systems Review of Systems: All systems reviewed & are unremarkable except as noted in HPI & below Constitutional: + fatigue, + malaise, + weakness, + anorexia and + weight loss Physical Exam Physical Exam: GENERAL : No acute distress EYES: No icterus, gaze conjugate NOSE: No evidence of epistaxis MOUTH: No lesions or candidiasis, mucosa moist NECK: Supple LUNGS: CTA B/L, no wheezes, rales or rhonchi HEART: Regular, rate controlled ABDOMEN: Soft, NT, ND, BS Present EXTREMITIES: No LE edema, pedal pulses intact NEURO: A&OX3 Results & Data Vital Signs (Past 12 Hours) Vital Signs Temp Pulse Resp BP Pulse Ox 07/12/19 13:13 44 L 18 116/62 07/12/19 12:25 99 07/12/19 12:24 99 07/12/19 11:51 97.7 F 49 L 20 121/74 98 Laboratory Results 07/12/19 07/12/19 07/12/19 Range/Units 13:55 11:42 11:42 WBC 5.16 (4.8-10.8) K/uL RBC 4.07 L (4.7-6.1) M/uL Hgb 13.6 L (14.0-18.0) g/dL Hct 38.1 L (42-52) % MCV 93.6 (80-100) fL MCH 33.4 (25-34) pg MCHC 35.7 (32-36) g/dL RDW Std Deviation 42.8 (36.4-46.3) fL RDW Coeff of Marli 12.4 (11.5-14.5) % Plt Count 139 (130-400) K/uL MPV 11.9 H (7.4-10.4) fL Immature Gran % (Auto) 0.2 % Neut % (Auto) 48.5 % Lymph % (Auto) 38.0 % [place] % (Auto) 11.0 % Eos % (Auto) 1.7 % Baso % (Auto) 0.6 % Immature Gran # (Auto) 0.01 (0.00-0.02) K/uL Neut # (Auto) 2.50 (1.4-6.5) K/uL Lymph # (Auto) 1.96 (1.2-3.4) K/uL [place] # (Auto) 0.57 (0.11-0.59) K/uL Eos # (Auto) 0.09 (0-0.5) K/uL Baso # (Auto) 0.03 (0-0.2) K/uL Sodium 131 L (136-145) mmol/L Potassium 5.4 H (3.5-5.1) mmol/L Chloride 100 (98-107) mmol/L Carbon Dioxide 20 L (21-32) mmol/L Anion Gap 11.0 (3-11) BUN 52 H (7-18) mg/dl Creatinine 3.32 H (0.6-1.4) mg/dl Est Cr Clr Drug Dosing 29.7 ml/min Est GFR ( Amer) 21.5 Est GFR (Non-Af Amer) 18.6 BUN/Creatinine Ratio 15.8 (10-20) Glucose 89 (70-99) mg/dl POC Glucose 103 H (70-99) Calcium 10.2 H (8.5-10.1) mg/dl Total Bilirubin 0.8 (0.2-1) mg/dl AST 16 (15-37) U/L ALT 18 (12-78) U/L Alkaline Phosphatase 100 (45-117) U/L Troponin I < 0.015 (0-0.045) ng/ml Total Protein 8.5 H (6.4-8.2) gm/dl Albumin 4.7 (3.4-5.0) gm/dl Globulin 3.7 (2.5-4.0) gm/dl Albumin/Globulin Ratio 1.3 (0.9-2) Lipase 210 (73-393) U/L 07/12/19 11:42 07/12/19 11:42 Diagnostic Findings XR chest 1V portable CLINICAL HISTORY: Atypical chest pain COMPARISON STUDY: 09/04/2017 FINDINGS: The cardiac and mediastinal contours are normal. There is no evidence of focal pulmonary consolidation. There is no evidence of failure. No pleural effusions are visualized.[No pneumothorax is visualized. IMPRESSION: No active disease in the chest. CT head/brain wo con CLINICAL HISTORY: Vertigo, headaches. COMPARISON STUDY: November 16, 2013 TECHNIQUE: Axial CT of the brain is performed from the vertex to the skull base. IV contrast was not administered for this examination. A dose lowering technique was utilized adhering to the principles of ALARA. CT DOSE: 614.27 mGy.cm FINDINGS: No intra or extra-axial mass lesions are visualized. There is no CT evidence of acute cortical infarction. There is no evidence of midline shift. There is no acute hemorrhage. No calvarial fractures are visualized. There are mild white matter hypodensities likely on a small vessel basis. There is no evidence of pathologic ventricular dilatation. There is no evidence of acute sinusitis IMPRESSION: No acute intracranial findings PG Care Time/CCT Total # of Minutes Spent Total Time Spent with Patient: Total time spent is greater than 50% in coordination of care (as documented) at patient's floor/unit and/or counseling patient:
[2019-07-12] MEDS ORDERED: ONDANSETRON INJ 2 MG/ML 2 ML VIAL IV PRN (15:02)
[2019-07-12] MEDS ORDERED: POLYETHYLENE (MIRALAX) 17 GM PACK PO PRN (15:02)
[2019-07-12] MEDS ORDERED: MAGNESIUM HYDROXIDE SUSP 30 ML UDC PO PRN (15:02)
[2019-07-12] MEDS ORDERED: DOCUSATE SODIUM 100 MG CAP PO PRN (15:02)
[2019-07-12] MEDS ORDERED: ZOLPIDEM TARTRATE 5 MG TAB PO PRN (15:02)
[2019-07-12] MEDS ORDERED: ALUMINUM/MAGNESIUM SUSP 30 ML UDC PO PRN (15:02)
[2019-07-12] MEDS ORDERED: ACETAMINOPHEN 325 MG TAB PO PRN (15:02)
--- NOTE | 2019-07-12 15:54 | Nephrology Consultation ---
Date of Consultation July 12, 2019 Assessment & Plan (1) RENÉE (acute kidney injury): 64-year-old male with stage 3 chronic kidney disease, baseline creatinine 1.5-1.6 and hypertension, has been on lisinopril 5 mg and spironolactone 100 mg daily. Admitted to the hospital with several weeks history of generalized weakness, poor p.o. intake, weight loss and dizziness lightheadedness. Has been taking NSAID heavily for neck pain. On admission found to have acute kidney injury and hyperkalemia, creatinine was 3.5 and potassium 5.5. Lisinopril and spironolactone on hold, received IV fluid, insulin D50 and currently continuing on IV hydration. Acute kidney injury most likely hemodynamically mediated with poor p.o. intake, heavy NSAID use with lisinopril and spironolactone on board. Can not exclude any intrinsic renal disease or post renal obstruction. Hyperkalemia secondary to RENÉE in the setting of lisinopril and spironolactone. --check urinalysis and urine electrolyte, agree with holding lisinopril and spironolactone --continue to avoid all NSAID going forward --recheck potassium in few hours, if potassium remained 5.5 or above, give Kayexalate 30 g p.o. x1 dose --if renal function continue to worsen, will consider renal ultrasound for further evaluation for any evidence of postrenal obstruction --continue on IV fluid --considering anorexia, weight loss, abdominal pain, recommend non contrast A/P for further evaluation --DC carvedilol as HR has been 43 to 50 and pt ahs been havign dizziness and lightheadedness. Will follow Thank you for allowing me to participate in your patient's care. It was a pleasure to see Jey (2) Hyperkalemia: (3) Hyponatremia: (4) Hypertension: History of Present Illness Reason for Consultation: Acute kidney injury and hyperkalemia. Attending Physician: Eze Clements MD History of Present Illness Stalin Cassidy is a 64-year-old gentlemen with past medical history significant for stage 3 chronic kidney disease and hypertension admitted to the hospital with generalized weakness, anorexia and found to have acute kidney injury and hyperkalemia. Nephrology consult was requested to manage acute kidney injury and hyperkalemia with history of chronic kidney disease. Electronic medical records including labs and imaging are reviewed in detail during patient's visit. Jey presented to the hospital with few weeks history of generalized weakness, decreased p.o. intake, anorexia and weight loss of around 15 lbs which worsened over last 2 /3 days. He also had occasional abdominal pain specially with eating. He also had some complain of dizziness and lightheadedness and CT head on admission was otherwise unremarkable. Found to have acute kidney injury with creatinine 3.5 and potassium 5.5. Receord from PCP showed recent worsening of renal function, cr was 2.2 on 06/29/19. Was given insulin, D50 and IV fluid bolus and currently continued on IV normal saline at 100 mL/hour. He reports he has been voiding normally. Has been taking Ibuprofen heavily over last few weeks for some neck pain. Was on lisinopril and spironolactone at home which currently on hold. Hypertension, well controlled. No history of diabetes or coronary artery disease, prior echo in 2017 showed normal ejection fraction with mild concentric left ventricular hypertrophy and grade 1 diastolic dysfunction. Has stage 3 chronic kidney disease, last lab from 2017 showed baseline creatinine 1.5-1.6. No lab in between. Never smoker. Denies any family history of chronic kidney disease or end-stage renal disease. Currently otherwise asymptomatic, denies any history of urinary retention, dysuria, hematuria or other voiding symptoms. main c/o is generalized weakness and inability to do much due to weakness. Allergies Allergy/AdvReac Type Severity Reaction Status Date / Time codeine AdvReac Mild "MAKES ME Verified 07/12/19 13:39 GOOFEY" gabapentin AdvReac Unknown Unverified 07/12/19 13:39 hydralazine AdvReac Unresponsiv Unverified 07/12/19 13:39 e Home Medications Home Medications Medication Instructions Recorded Confirmed Type allopurinol 300 mg PO DAILY 07/12/19 07/12/19 History carvedilol 12.5 mg PO BID 07/12/19 07/12/19 History cholecalciferol (vitamin D3) 2,000 unit PO DAILY 07/12/19 07/12/19 History docusate sodium 100 mg PO TID PRN 07/12/19 07/12/19 History duloxetine 30 mg PO DAILY 07/12/19 07/12/19 History hydrophilic cream 1 applic TOPICAL DAILY 07/12/19 07/12/19 History ibuprofen 800 mg PO TID PRN 07/12/19 07/12/19 History lisinopril 5 mg PO DAILY 07/12/19 07/12/19 History pantoprazole 40 mg PO DAILY 07/12/19 07/12/19 History ranitidine HCl 150 mg PO BID PRN 07/12/19 07/12/19 History spironolactone 100 mg PO QAM 07/12/19 07/12/19 History Patient History Medical History No significant past medical history Family History Other No significant family history Social History Preferred Language: Lithuanian Communication Ability: Effective Claim Examiner Required: No Beliefs That Will Affect Care: None Current Living Situation: Alone Feels Safe at Home: Yes Smoking Status: Never smoker Second Hand Exposure: No ; Hx Alcohol Use: No Hx Substance Use: No Review of Systems Review of Systems: All systems reviewed & are unremarkable except as noted in HPI & below Physical Exam Constitutional: WD/WN, vitals as above well developed and well nourished; no acute distress Eyes: PERRL, conjunctivae normal, anicteric sclerae ENMT: external ear and nose normal, oropharynx normal Ears: no hearing impairment Neck: trachea midline Respiratory: normal respiratory effort, lungs clear to auscultation no cough Auscultation: no crackles, no rales and no wheezes Cardiovascular: RRR, no murmur, no edema Gastrointestinal (Abdomen): normal bowel sounds, soft, nontender, no hepatosplenomegaly Percussion/Palpation: abdomen nontender, no guarding and abdomen not rigid Musculoskeletal: Extremities: extremities normal to inspection Gait: normal gait Skin: no rashes, warm and dry Neurologic: moves all extremities and awake Psychiatric: A+Ox3, euthymic affect Results & Data Vital Signs (Past 12 Hours) Vital Signs Temp Pulse Pulse Resp BP BP Pulse Ox 07/12/19 14:50 44 L 07/12/19 14:45 36.4 C L 45 L 18 121/66 99 07/12/19 14:19 45 L 16 119/72 100 07/12/19 13:25 43 L 28 H 127/62 100 07/12/19 13:13 44 L 18 116/62 07/12/19 12:25 99 07/12/19 12:24 99 07/12/19 11:51 36.5 C 49 L 20 121/74 98 PG Care Time/CCT Total # of Minutes Spent Total Time Spent with Patient: Total time spent is greater than 50% in coordination of care (as documented) at patient's floor/unit and/or counseling patient:
[2019-07-12] MEDS: SODIUM CHLORIDE 0.9% 1000ML 1,000 ML IV SCH (16:38)
--- NOTE | 2019-07-12 17:16 | Emergency Department Note ---
Entered by Dave Lemus acting as a scribe for History of Present Illness General Chief complaint: Chest Pain Source: patient History of Present Illness Onset (ago): week(s) 2 Location: head and chest Pain Consistency: + other (multiple episodes) Quality: + other (dizziness and chest pain ) Exacerbated By: + other (dizziness is worse with exertion ) Associated symptoms: + other (+lightheadedness; +sweating profusely; +fatigued; +neck pain; +frequent urination; -leg swelling/pain; -numbness; -double vison; -loss of vision); no shortness of breath and no weakness The patient is a 64 year old male, with no significant past medical history, who presents to the Emergency Room with complaints of multiple episodes of both dizziness and chest pain over the past couple weeks. The patient states he was referred from the OR. The patient reports that the chest pain and dizziness are not connected. The patient describes the chest pain as "just a little pain." He states he has experienced two or three episodes of this chest pain over the past few weeks, with the last episode being 4 days ago. The patient states the chest pain does not radiate anywhere, and he does not note of anything that makes it worse. The patient states that each of episode of his chest pain would last a bout a minute or two. The patient denies shortness of breath or leg swelling/pain. The patient also notes of episodes of dizziness over the past couple weeks. The patient describes the dizziness as experiencing both lightheadedness and room spinning sensations. The patient notes the dizziness is worse with exertion. He also notes the dizziness is accompanied with sweating profusely. He notes the last episode of dizziness occurred at the OR prior to his arrival to the ED. The patient also reports of a headache and feeling fatigued recently. The patient denies numbness or weakness to one side of his body, but he notes tingling in his fingers that he believes is a result of carpal tunnel syndrome. The patient also denies double vision or loss of vision currently. The patient also admits to neck pain that he states has been bothering him for months now and he saw his neurologist and is scheduled for an MRI of his neck. He also notes he has been urinating frequently recently without burning. The patient states this neck pain does not go down to his arm, and he believes the neck pain is a result from his sleeping wrong. The patient notes he typically has bradycardia that sometimes results in his heart rate reaching 30. The patient also states he takes 800 mg ibuprofen 2-3 times a day for headache and neck pain over the past week. Home Medications Home Medications Medication Instructions Recorded Confirmed Type allopurinol 300 mg PO DAILY 07/12/19 07/12/19 History carvedilol 12.5 mg PO BID 07/12/19 07/12/19 History cholecalciferol (vitamin D3) 2,000 unit PO DAILY 07/12/19 07/12/19 History docusate sodium 100 mg PO TID PRN 07/12/19 07/12/19 History duloxetine 30 mg PO DAILY 07/12/19 07/12/19 History hydrophilic cream 1 applic TOPICAL DAILY 07/12/19 07/12/19 History ibuprofen 800 mg PO TID PRN 07/12/19 07/12/19 History lisinopril 5 mg PO DAILY 07/12/19 07/12/19 History pantoprazole 40 mg PO DAILY 07/12/19 07/12/19 History ranitidine HCl 150 mg PO BID PRN 07/12/19 07/12/19 History spironolactone 100 mg PO QAM 07/12/19 07/12/19 History Allergies Allergy/AdvReac Type Severity Reaction Status Date / Time codeine AdvReac Mild "MAKES ME Verified 07/12/19 13:39 GOOFEY" gabapentin AdvReac Unknown Unverified 07/12/19 13:39 hydralazine AdvReac Unresponsiv Unverified 07/12/19 13:39 e Past Med/Surg History Medical History No significant past medical history Family History Other No significant family history Social History Preferred Language: Armenian Communication 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 and A total of 10 systems reviewed and were otherwise negative Physical Exam Vital Signs Vital Signs - 24 hr 07/12/19 11:51 07/12/19 12:24 07/12/19 12:25 Temperature 36.5 C Temperature Source Oral Sepsis Recent Fever Within 48 Hours No Sepsis New/Unexplained Change in Mental Status No Sepsis Action Taken by Nursing No Action Required Pulse Rate - Lying Pulse Rate - Sitting Pulse Rate - Standing Pulse Rate 49 L Pulse Rate from SpO2 Sensor Respiratory Rate 20 Blood Pressure - Lying Blood Pressure - Sitting Blood Pressure- Standing Blood Pressure 121/74 Blood Pressure Mean 89 Pulse Oximetry 98 99 99 Oxygen Delivery Method Room Air Room Air Room Air 07/12/19 12:57 07/12/19 13:13 07/12/19 13:25 Temperature Temperature Source Sepsis Recent Fever Within 48 Hours Sepsis New/Unexplained Change in Mental Status Sepsis Action Taken by Nursing Pulse Rate - Lying 41 L Pulse Rate - Sitting 57 L Pulse Rate - Standing 68 Pulse Rate 44 L 43 L Pulse Rate from SpO2 Sensor 45 L Respiratory Rate 18 28 H Blood Pressure - Lying 118/61 Blood Pressure - Sitting 95/57 L Blood Pressure- Standing 88/60 L Blood Pressure 116/62 127/62 Blood Pressure Mean 80 83 Pulse Oximetry 100 Oxygen Delivery Method Constitutional: Vital signs reviewed. Eyes: Pupils are equal round reactive to light. Conjunctiva are noninjected. ENT: Pharynx is clear without erythema or exudate. Mucous membranes are dry. Neck supple without meningeal signs. Respiratory: Clear to auscultation bilaterally. Breath sounds are equal bilaterally. Cardiovascular: Regular rate and rhythm. No rubs or gallops. GI: Soft, nondistended and nontender. Bowel sounds are present. Musculoskeletal: No peripheral edema. No lower extremity tenderness. Integumentary: No cyanosis. Neurological: The patient is awake and alert. Cranial nerves II-XII are intact. Motor is 5 out of 5 all extremities. Sensation is intact to light touch all extremities. Normal speech. No pronator drift. No limb ataxia. No dysdiadochokinesia. Normal gait, including heel to toe. Negative test of skew. Positive head impulse testing. Right lateral nystagmus extinguished with fixation. Psychiatric: Normal affect. Course 1232: Past medical records reviewed. The patient was evaluated in room A12B. A complete history and physical exam was performed. 1253: I discussed the patient's test results with the patient. I noted the patient's prior creatinine on June 29 was 2.2. 1348: I reviewed the patient's case with Dr. Clements-Hospitalist [facility]. Dr. Clements will evaluate the patient for further management. Consultations Consultation #1: I reviewed the patient's case with Dr. Clements-Hospitalist [facility]. Dr. Clements will evaluate the patient for further management. Time: 13:48 Administered Medications Sodium Chloride (Nss 1000ml) 1,000 mls @ 100 mls/hr IV .Q10H DANIA Stop: 08/11/19 15:01 Last Admin: 07/12/19 16:38 Dose: 100 mls/hr Documented by: [id number] Discontinued Medications Dextrose (Dextrose 50%) 50 ml IV NOW STA Stop: 07/12/19 12:46 Last Admin: 07/12/19 13:07 Dose: 50 ml Documented by: [id number] Sodium Chloride (Nss 1000ml) 1,000 mls @ 999 mls/hr IV .Q1H1M DANIA Stop: 07/12/19 13:45 Last Infusion: 07/12/19 14:08 Dose: 0 mls/hr Documented by: [id number] Admin: 07/12/19 13:07 Dose: 999 mls/hr Documented by: [id number] Insulin Human Regular (Novolin R U-100 Per Unit) 10 units IV NOW STA Stop: 07/12/19 12:46 Last Admin: 07/12/19 13:07 Dose: 10 units Documented by: [id number] Cosigned by: [id number] Medical Decision Making Differential Diagnosis Differential diagnoses include BPPV, CVA, ICH, unstable angina, GERD, dehydration, RENÉE, amongst others were considered. Medical Records Attestation: I reviewed the patient's medical records. I did perform a limited focused review of portions of the patient's old chart on the electronic medical record. The patient has had no recent pertinent visits to this hospital. Home Medications Current Medication List: was personally reviewed by me Laboratory Data Attestation: I reviewed the patient's lab results. Result diagrams: 07/12/19 11:42 07/12/19 11:42 Lab Results 07/12/19 07/12/19 07/12/19 Range/Units 11:42 11:42 13:55 WBC 5.16 (4.8-10.8) K/uL RBC 4.07 L (4.7-6.1) M/uL Hgb 13.6 L (14.0-18.0) g/dL Hct 38.1 L (42-52) % MCV 93.6 (80-100) fL MCH 33.4 (25-34) pg MCHC 35.7 (32-36) g/dL RDW Std Deviation 42.8 (36.4-46.3) fL RDW Coeff of Marli 12.4 (11.5-14.5) % Plt Count 139 (130-400) K/uL MPV 11.9 H (7.4-10.4) fL Immature Gran % (Auto) 0.2 % Neut % (Auto) 48.5 % Lymph % (Auto) 38.0 % Bracken % (Auto) 11.0 % Eos % (Auto) 1.7 % Baso % (Auto) 0.6 % Immature Gran # (Auto) 0.01 (0.00-0.02) K/uL Neut # (Auto) 2.50 (1.4-6.5) K/uL Lymph # (Auto) 1.96 (1.2-3.4) K/uL Bracken # (Auto) 0.57 (0.11-0.59) K/uL Eos # (Auto) 0.09 (0-0.5) K/uL Baso # (Auto) 0.03 (0-0.2) K/uL Sodium 131 L (136-145) mmol/L Potassium 5.4 H (3.5-5.1) mmol/L Chloride 100 (98-107) mmol/L Carbon Dioxide 20 L (21-32) mmol/L Anion Gap 11.0 (3-11) BUN 52 H (7-18) mg/dl Creatinine 3.32 H (0.6-1.4) mg/dl Est Cr Clr Drug Dosing 29.7 ml/min Est GFR ( Amer) 21.5 Est GFR (Non-Af Amer) 18.6 BUN/Creatinine Ratio 15.8 (10-20) Glucose 89 (70-99) mg/dl POC Glucose 103 H (70-99) Calcium 10.2 H (8.5-10.1) mg/dl Total Bilirubin 0.8 (0.2-1) mg/dl AST 16 (15-37) U/L ALT 18 (12-78) U/L Alkaline Phosphatase 100 (45-117) U/L Troponin I < 0.015 (0-0.045) ng/ml Total Protein 8.5 H (6.4-8.2) gm/dl Albumin 4.7 (3.4-5.0) gm/dl Globulin 3.7 (2.5-4.0) gm/dl Albumin/Globulin Ratio 1.3 (0.9-2) Lipase 210 (73-393) U/L Imaging Data Radiologist's Impression: Radiology results as stated below per my review and the radiologist's interpretation: XR chest 1V portable CLINICAL HISTORY: Atypical chest pain COMPARISON STUDY: 09/04/2017 FINDINGS: The cardiac and mediastinal contours are normal. There is no evidence of focal pulmonary consolidation. There is no evidence of failure. No pleural effusions are visualized.[No pneumothorax is visualized. IMPRESSION: No active disease in the chest. Electronically signed by: Bob Briceno M.D. 07/12/2019 12:[address] head/brain wo con CLINICAL HISTORY: Vertigo, headaches. COMPARISON STUDY: November 16, 2013 TECHNIQUE: Axial CT of the brain is performed from the vertex to the skull base. IV contrast was not administered for this examination. A dose lowering technique was utilized adhering to the principles of ALARA. CT DOSE: 614.27 mGy.cm FINDINGS: No intra or extra-axial mass lesions are visualized. There is no CT evidence of acute cortical infarction. There is no evidence of midline shift. There is no acute hemorrhage. No calvarial fractures are visualized. There are mild white matter hypodensities likely on a small vessel basis. There is no evidence of pathologic ventricular dilatation. There is no evidence of acute sinusitis IMPRESSION: No acute intracranial findings Electronically signed by: Bob Briceno M.D. 07/12/2019 1:29 PM ECG Data Attestation: I personally reviewed and interpreted this ECG as follows: Indication: chest pain Rate (beats per minute): 91 Rhythm: sinus rhythm Findings: + peaked T-waves (precordial leads ); no PVC and no ST elevation Blood Pressure Blood Pressure Findings: Elevated blood pressure Blood Pressure Disposition: elevated BP felt to be situational MDM Narrative I did evaluate the patient as noted above. Patient is presenting with transient intermittent chest pain which she has not had for about 4 days. He also complains of dizziness which he is mostly concerned about. He states when he gets up or exerts himself he gets very dizzy and has some vertigo with it as well. He is neurologically intact on examination. I did obtain orthostatic vital signs and he is significantly orthostatic. IV access was established. The patient was placed on a continuous cardiac technologist. I did order and personally review the patient's 12-lead EKG as described above. His twelve-lead EKG demonstrates peaked T waves but no other signs of acute ischemia. He does not have any chest discomfort or shortness of breath currently. I did order and personally reviewed the images of the patient's chest x-ray as described above. There is no evidence of acute pathology in his chest. I did order and review the patient's blood work as noted in the electronic medical record. His white count is not elevated. He has mild anemia. His potassium is elevated at 5.4 which is likely why he has peaked T waves. His creatinine is 3.3 with a BUN of 52. His sodium is 131. I did treat him with a liter normal saline IV. His last creatinine was 2.2 on June 29. This is a significant change. I did treat the patient with insulin and glucose IV. I did order a CT of the head. I did review the images myself as well as the radiology report as described above. There is no evidence of bleed or acute pathology. I did discuss the test results with the patient. I did recommend hospitalization. I did discuss case with the hospitalist and casey saw operator. Impression & Plan RENÉE (acute kidney injury), Acute hyperkalemia, Bradycardia, Dizziness, Acute hyponatremia Critical Care Time Critical Care Time: Yes Total Critical Care Time: 35 I have personally spent approximately 35 minutes of critical care time in the direct management of this patient. This includes bedside care, interpretation of diagnostic studies, and testing, discussion with consultants, patient, and family members, and other required patient management activities. These minutes are in excess of all separately billable procedures. Discharge Plan Visit Data *Final* Discharge Date/Time: 07/12/19 14:41 Chief Complaint: Chest Pain ED Provider: Ashwin Horvath Discharge Problem: RENÉE (acute kidney injury), Acute hyperkalemia, Bradycardia, Dizziness, Acute hyponatremia Patient Disposition: Admitted As Inpatient Discharge Instructions Interventions: ED Discharge Assessment Last Done: 07/12/19 14:41 The scribe's documentation has been prepared under my direction and personally reviewed by me in its entirety. I confirm that the note above accurately reflects all work, treatment, procedures, and medical decision making performed by me.
[2019-07-12 17:29] LABS: Albumin Level 4.5 gm/dl (3.4-5.0); BUN Creatinine Ratio 15.7 (10-20); Calcium 9.8 mg/dl (8.5-10.1); Creatinine Clr Calc Pharmacy 29.2 ml/min; Est GFR (African American) 21.1; Est GFR (Non-African American) 18.2; Phosphorus 4.5 mg/dl (2.5-4.9); Potassium 5.5 mmol/L (3.5-5.1)
[2019-07-12 20:59] LABS: Appearance Urine Cloudy (Clear); Bacteria Urine Automated Negative (Negative); Bilirubin Urine Negative (Negative); Blood Urine Negative (Negative); Color Urine Yellow; Epithelial Cell Urine Auto 0-5 /lpf (0-5); Glucose Urine UA Negative (Negative); Ketones Urine Negative (Negative); Leukocyte Esterase Urine Negative (Negative); Nitrite Urine Negative (Negative); Protein Urine Negative (Negative); RBC Urine Automated 0-4 /hpf (0-4); Specific Gravity Urine 1.014 (1.000-1.030); Urobilinogen Urine Negative (Negative); WBC Urine Automated 0 /hpf (0-5)
[2019-07-12 21:00] LABS: Albumin Level 3.8 gm/dl (3.4-5.0); Calcium 9.1 mg/dl (8.5-10.1); Creatinine Clr Calc Pharmacy 31.3 ml/min; Est GFR (African American) 22.9; Est GFR (Non-African American) 19.8; Potassium 4.9 mmol/L (3.5-5.1)
[2019-07-12] MEDS ORDERED: carvediloL 25 MG TAB PO SCH (21:00)
[2019-07-12 21:01] LABS: Phosphorus 4.2 mg/dl (2.5-4.9)
[2019-07-13] MEDS: SODIUM CHLORIDE 0.9% 1000ML 1,000 ML IV SCH ×3 (01:56→21:26)
[2019-07-13 07:19] LABS: Albumin Level 3.4 gm/dl (3.4-5.0); BUN Creatinine Ratio 18.8 (10-20); Calcium 8.7 mg/dl (8.5-10.1); Creatinine Clr Calc Pharmacy 39.1 ml/min; Est GFR (African American) 30.2; Phosphorus 3.9 mg/dl (2.5-4.9); Potassium 4.5 mmol/L (3.5-5.1)
[2019-07-13] MEDS: DULOXETINE HCL 30 MG CAP PO SCH (08:20)
[2019-07-13] MEDS: CHOLECALCIFEROL 1,000 UNITS TAB PO SCH (08:21)
[2019-07-13] MEDS: allopurinoL 300 MG TAB PO SCH (08:21)
[2019-07-13] MEDS ORDERED: PANTOprazole 40 MG TAB PO SCH (09:00)
[2019-07-13] MEDS ORDERED: HYDROPHILIC TOP SCH (09:00)
--- NOTE | 2019-07-13 11:08 | Nephrology Progress Note ---
Date of Service July 13, 2019 Assessment & Plan (1) RENÉE (acute kidney injury): 64-year-old male with stage 3 chronic kidney disease, baseline creatinine 1.5-1.6 and hypertension, has been on lisinopril 5 mg and spironolactone 100 mg daily. Admitted to the hospital with several weeks history of generalized weakness, poor p.o. intake, weight loss and dizziness lightheadedness. Has been taking NSAID heavily for neck pain. On admission found to have acute kidney injury and hyperkalemia, creatinine was 3.5 and potassium 5.5. Lisinopril and spironolactone on hold, received IV fluid, insulin D50 and currently continuing on IV hydration. Acute kidney injury most likely hemodynamically mediated with poor p.o. intake, heavy NSAID use with lisinopril and spironolactone on board. Can not exclude any intrinsic renal disease or post renal obstruction. Hyperkalemia secondary to RENÉE in the setting of lisinopril and spironolactone. Hyperkalemia resolved, acute kidney injury improving, creatinine down to 2.5, other electrolyte acceptable. No proteinuria hematuria. Decent urine output. Blood pressure stable on overall feeling well. --continue on IV fluid, can be stopped if p.o. intake adequate, continue to avoid all NSAID going forward --considering anorexia, weight loss, abdominal pain, recommend checking TSH, non contrast A/P for further evaluation Will follow (2) Hyperkalemia: (3) Hyponatremia: (4) Hypertension: [facility] [employer] was Seen and examined in his room this morning. Overall feeling better, appetite improved and had full breakfast this morning. Did walk to the bathroom and did not feel any further episode of dizziness or lightheadedness. Renal function improved to creatinine 2.5 this morning, hyperkalemia resolved. Has been having decent urine output, net positive 1.2 liters. Review of Systems Review of Systems: All systems reviewed & are unremarkable except as noted in HPI & below Physical Exam Constitutional: well developed and well nourished; no acute distress Respiratory: normal respiratory effort, lungs clear to auscultation Cardiovascular: Rate/Rhythm: regular rate, regular rhythm and + bradycardic Heart Sounds: normal S1 and normal S2 Extremities: no edema Neurologic: moves all extremities and awake; not confused Psychiatric: A+Ox3, euthymic affect Results & Data Vital Signs (Past 12 Hours) Vital Signs Temp Pulse Pulse Resp BP Pulse Ox 07/13/19 08:36 36.7 C 46 L 12 148/87 H 98 07/13/19 08:05 47 L 07/13/19 03:12 36.6 C 47 L 15 120/62 96 07/12/19 23:43 36.6 C 46 L 16 123/71 96 PG Care Time/CCT Total # of Minutes Spent Total Time Spent with Patient: Total time spent is greater than 50% in coordination of care (as documented) at patient's floor/unit and/or counseling patient:
--- NOTE | 2019-07-13 14:33 | Hospitalist Progress Note ---
Date of Service July 13, 2019 Assessment & Plan (1) ARF (acute renal failure): Baseline Cr is ~1.5 (though this is from 2017, so unclear how accurate). Up to 3.4 this admission. - Now down to 2.5 with IV fluids - Hold lisinopril & Aldactone - Hold NSAIDs - Nephrology following; appreciate recommendations (2) Bradycardia: HR down to ~50 today off all beta-heidy. BP stable. EKG shows sinus bradycardia. - Hold beta-heidy - Monitor for symptoms (3) Hyperkalemia: K+ was 5.5 on admission due to RENÉE. Patient received insulin and dextrose in the ER. - Normal on 07/13. (4) Hypertension: Holding all BP meds right now as his heart rate is low. - Monitor BP (5) GERD (gastroesophageal reflux disease): c/w PPI (6) Cirrhosis: Presumably from HCV. I assume the [facility] is taking care of this. - No inpatient needs (7) Hepatitis C: To be treated at the [facility]. (8) DVT prophylaxis: SCDs - Low DVT risk per admission calculator Subjective Feels better than yesterday. More energy, less dizzy. Reports no fevers/chills, chest pain, shortness of breath, abdominal pain, nausea, or vomiting. Physical Exam Constitutional: WD/WN, vitals as above Eyes: EOM intact bilaterally; no conjunctival abnormality ENMT: external ear and nose normal, oropharynx normal Neck: trachea midline, no thyromegaly normal visual inspection Respiratory: normal respiratory effort, lungs clear to auscultation no respiratory distress Cardiovascular: RRR, no murmur, no edema Gastrointestinal (Abdomen): Inspection/Auscultation: abdomen normal to inspection; abdomen not distended Musculoskeletal: no cyanosis or clubbing, extremities motor strength 5/5 Skin: no rashes, warm and dry Neurologic: moves all extremities and awake Psychiatric: Orientation: alert, oriented to person and cooperative Results & Data Vital Signs (Past 12 Hours) Vital Signs Temp Pulse Pulse Resp BP Pulse Ox 07/13/19 11:05 36.5 C 48 L 16 142/79 H 100 07/13/19 08:36 36.7 C 46 L 12 148/87 H 98 07/13/19 08:05 47 L 07/13/19 03:12 36.6 C 47 L 15 120/62 96 PG Care Time/CCT Total # of Minutes Spent Total Time Spent with Patient: Total time spent is greater than 50% in coordination of care (as documented) at patient's floor/unit and/or counseling patient:
--- NOTE | 2019-07-13 17:27 | CT Scan Report ---
CT abd pelvis oral con only CT DOSE: 1370.62 mGy.cm HISTORY: Weight loss Abdominal pain; weight loss TECHNIQUE: Multiaxial CT images of the abdomen and pelvis were performed following the use of oral co ntrast. A dose lowering technique was utilized adhering to the principles of ALARA. COMPARISON STUDY: 09/30/2016 FINDINGS: The lung bases are clear. Findings of hepatic cirrhosis are again noted. Small gallstone in the region of the gallbladder neck. This is similar compared to the prior study. Pancreas is unremarkable. Mild cortical scarring of the kidneys bilaterally. No evidence for hydronephrosis. Nonobstructive bowel pattern. Bladder is midline. No significant abdominal pelvic or inguinal adenopa thy. Normal appendix. Moderate atherosclerotic change of the abdominal and pelvic arterial vasculature con sidered unchanged. IMPRESSION: 1. Hepatic cirrhosis considered unchanged from the prior study. 2. Several gallstones in the region of the gallbladder neck also unchanged. 3. The remainder the study is unremarkable and unchanged compared to the prior exam. The above report was generated using voice recognition software. It may contain grammatical, syntax or spelling errors. Electronically signed by: Rob Bowen M.D. 07/13/2019 5:25 PM
[2019-07-14 07:03] LABS: Albumin Level 3.5 gm/dl (3.4-5.0); BUN Creatinine Ratio 17.7 (10-20); Calcium 8.6 mg/dl (8.5-10.1); Creatinine Clr Calc Pharmacy 59.9 ml/min; Est GFR (African American) 50.5; Est GFR (Non-African American) 43.5; Potassium 4.6 mmol/L (3.5-5.1)
[2019-07-14 07:15] LABS: Phosphorus 2.9 mg/dl (2.5-4.9); Thyroid Stimulating Hormone 1.23 uIu/ml (0.300-4.500)
[2019-07-14] MEDS: SODIUM CHLORIDE 0.9% 1000ML 1,000 ML IV SCH (08:38)
[2019-07-14] MEDS: DULOXETINE HCL 30 MG CAP PO SCH (08:40)
[2019-07-14] MEDS: allopurinoL 300 MG TAB PO SCH (08:40)
[2019-07-14] MEDS: CHOLECALCIFEROL 1,000 UNITS TAB PO SCH (08:40)
--- NOTE | 2019-07-14 09:54 | Nephrology Progress Note ---
Date of Service July 14, 2019 Assessment & Plan (1) RENÉE (acute kidney injury): 64-year-old male with stage 3 chronic kidney disease, baseline creatinine 1.5-1.6 and hypertension, has been on lisinopril 5 mg and spironolactone 100 mg daily. Admitted to the hospital with several weeks history of generalized weakness, poor p.o. intake, weight loss and dizziness lightheadedness. Has been taking NSAID heavily for neck pain. On admission found to have acute kidney injury and hyperkalemia, creatinine was 3.5 and potassium 5.5. Lisinopril and spironolactone on hold. CT A/P with liver cirrhosis and gall stone. Acute kidney injury most likely hemodynamically mediated with poor p.o. intake, heavy NSAID use with lisinopril and spironolactone on board. Can not exclude any intrinsic renal disease or post renal obstruction. Hyperkalemia secondary to RENÉE in the setting of lisinopril and spironolactone. Hyperkalemia resolved, acute kidney injury improving, creatinine down to 1.6, close to his b/l, other electrolyte acceptable. No proteinuria hematuria. Decent urine output. Blood pressure stable on overall feeling well. --suggest DC IV fluid as p.o. intake better, continue to avoid all NSAID going forward --may need tilt table test for continues dizziness/lightheadedness. --if renal function remain stable, BP well controlled, would resume lisinopril on DC but do not think pt needs spironolactone anymore Will sign off (2) Hyperkalemia: (3) Hyponatremia: (4) Hypertension: Subjective HUBER was Seen and examined in his room this morning with his son at bedside. Overall feeling better, appetite improved and had full breakfast this morning. Continues to ahev occasional dizziness with sitting up or with any movement. Renal function improved to creatinine 1.6 this morning, hyperkalemia resolved. Has been having decent urine output. Review of Systems Review of Systems: All systems reviewed & are unremarkable except as noted in HPI & below Physical Exam Constitutional: WD/WN, vitals as above well developed and well nourished; no acute distress Eyes: PERRL, conjunctivae normal, anicteric sclerae ENMT: Ears: no hearing impairment Neck: trachea midline Respiratory: normal respiratory effort, lungs clear to auscultation no cough Auscultation: no crackles, no rales and no wheezes Cardiovascular: RRR, no murmur, no edema Rate/Rhythm: regular rate, regular rhythm and + bradycardic Heart Sounds: normal S1 and normal S2 Extremities: no edema Skin: no rashes, warm and dry Neurologic: moves all extremities and awake; not confused Psychiatric: A+Ox3, euthymic affect Results & Data Vital Signs (Past 12 Hours) Vital Signs Temp Pulse Pulse Resp BP Pulse Ox 07/14/19 07:05 36.6 C 45 L 16 127/75 100 07/14/19 03:02 36.8 C 49 L 15 132/72 96 07/14/19 00:00 46 L 07/13/19 23:54 36.8 C 48 L 15 125/67 96 PG Care Time/CCT Total # of Minutes Spent Total Time Spent with Patient: Total time spent is greater than 50% in coordination of care (as documented) at patient's floor/unit and/or counseling patient:
--- NOTE | 2019-07-14 14:01 | Hospitalist Progress Note ---
Date of Service July 14, 2019 Assessment & Plan (1) ARF (acute renal failure): Baseline Cr is ~1.5 (though this is from 2017, so unclear how accurate). Up to 3.4 this admission. - Now down to 1.6 on 07/14 - Holding lisinopril & Aldactone - [facility] likely restart his home meds if he remains stable tomorrow. - Hold NSAIDs - Nephrology following; appreciate recommendations (2) Bradycardia: HR down to ~50 today off all beta-heidy. BP stable. EKG shows sinus bradycardia. - Hold beta-heidy - No symptoms and his HR goes up appropriately with exercise. No need for cardiology consult at this time. (3) Hyperkalemia: K+ was 5.5 on admission due to RENÉE. Patient received insulin and dextrose in the ER. - Normal on 07/13. (4) Hypertension: Holding all BP meds right now as his heart rate is low. - Monitor BP (5) GERD (gastroesophageal reflux disease): c/w PPI (6) Cirrhosis: Presumably from HCV. I assume the [facility] is taking care of this. - No inpatient needs (7) Hepatitis C: To be treated at the [facility]. (8) DVT prophylaxis: SCDs - Low DVT risk per admission calculator Subjective Feel dizzy and "hazy" after taking his duloxetine. Feels this may be causing some of his symptoms. Reports no fevers/chills, chest pain, shortness of breath, abdominal pain, nausea, or vomiting. Physical Exam Constitutional: WD/WN, vitals as above Eyes: EOM intact bilaterally; no conjunctival abnormality ENMT: external ear and nose normal, oropharynx normal Neck: trachea midline, no thyromegaly normal visual inspection Respiratory: normal respiratory effort, lungs clear to auscultation no respiratory distress Cardiovascular: RRR, no murmur, no edema Gastrointestinal (Abdomen): Inspection/Auscultation: abdomen normal to inspection; abdomen not distended Musculoskeletal: no cyanosis or clubbing, extremities motor strength 5/5 Skin: no rashes, warm and dry Neurologic: moves all extremities and awake Psychiatric: Orientation: alert, oriented to person and cooperative Results & Data Vital Signs (Past 12 Hours) Vital Signs Temp Pulse Pulse Resp BP Pulse Ox 07/14/19 11:44 37.5 C 48 L 20 169/77 H 98 07/14/19 08:00 41 L 07/14/19 07:05 36.6 C 45 L 16 127/75 100 07/14/19 03:02 36.8 C 49 L 15 132/72 96 PG Care Time/CCT Total # of Minutes Spent Total Time Spent with Patient: Total time spent is greater than 50% in special education coordinator rdination of care (as documented) at patient's floor/unit and/or counseling patient:
[2019-07-15 07:55] LABS: Albumin Level 3.7 gm/dl (3.4-5.0); BUN Creatinine Ratio 16.7 (10-20); Calcium 9.3 mg/dl (8.5-10.1); Est GFR (African American) 64.4; Est GFR (Non-African American) 55.6; Phosphorus 2.8 mg/dl (2.5-4.9); Potassium 4.4 mmol/L (3.5-5.1)
[2019-07-15] MEDS: CHOLECALCIFEROL 1,000 UNITS TAB PO SCH (08:28)
[2019-07-15] MEDS: allopurinoL 300 MG TAB PO SCH (08:28)
--- NOTE | 2019-07-15 18:00 | Discharge Summary ---
Date of Service July 15, 2019 Admission HPI Per Admitting Provider The patient is 64-year-old male who is complaining of generalized weakness for last 3 days. He is complaining of fatigue and malaise. He also complains of dizziness which he described as lightheadedness. He has decreased oral intake for the last 3 weeks. He also has noticed weight loss of approximately 12 pounds. He was being followed up by the [facility]. His symptoms persisted so he presented presented to the ER. The further work-up done in the ER showed that the patient had acute on chronic renal failure and hyperkalemia. The patient has been taking large doses of Motrin for his neck pain. The patient was started on IV fluids. He received insulin and dextrose for hyperkalemia. He will be admitted to telemetry floor for further evaluation and management. Principal Diagnosis Acute renal failure Discharge Exam Constitutional WD/WN, vitals as above Eyes EOM intact bilaterally; no conjunctival abnormality ENMT external ear and nose normal, oropharynx normal Neck trachea midline, no thyromegaly normal visual inspection Respiratory normal respiratory effort, lungs clear to auscultation no respiratory distress Cardiovascular RRR, no murmur, no edema Gastrointestinal (Abdomen) Inspection/Auscultation: abdomen normal to inspection; abdomen not distended Musculoskeletal no cyanosis or clubbing, extremities motor strength 5/5 Skin no rashes, warm and dry Neurologic moves all extremities and awake Psychiatric Orientation: alert, oriented to person and cooperative Discharge Data Allergies Allergy/AdvReac Type Severity Reaction Status Date / Time codeine AdvReac Mild "MAKES ME Verified 07/12/19 13:39 GOOFEY" gabapentin AdvReac Unknown Unverified 07/12/19 13:39 hydralazine AdvReac Unresponsiv Unverified 07/12/19 13:39 e Consultations 07/12/19 13:46 ED Decision to Admit Stat 07/12/19 15:02 Consult Nephrology Routine Ordered Studies 07/12/19 12:43 CT head/brain wo con Stat 07/13/19 14:22 CT abd pelvis oral con only Routine Hospital Course (1) ARF (acute renal failure): Baseline Cr is ~1.5 (though this is from 2017, so unclear how accurate). Up to 3.4 this admission. Due to lisinopril, spironolactone, NSAIDs, and dehydration. - Down to 1.35 on 07/15 - On discharge, restarted the spironolactone to prevent ascites from his cirrhosis. Asked him to hold his lisinopril and vastly reduce his NSAID use. He agreed to drop the ibuprofen to 400-800 mg one time per day, though I encouraged it to be on the lower end. Will follow up with his [facility] physician. (2) Bradycardia: HR down to ~50 today off all beta-heidy. BP stable. EKG shows sinus bradycardia. - No symptoms and his HR goes up appropriately with exercise. No need for car diology consult at this time. - Held beta-heidy on discharge - Can [facility] with [facility] if needed. (3) Hyperkalemia: K+ was 5.5 on admission due to RENÉE. Patient received insulin and dextrose in the ER. - Normal on 07/13. (4) Hypertension: Held all BP meds for both RENÉE and his bradycardia. His BP ran fairly normal here. Highest was 170/70, but he was mostly 130-140/80. - Restarted spironolactone as above. Could consider alternative agent to lisinopril and Coreg if needed. (5) GERD (gastroesophageal reflux disease): c/w PPI (6) Cirrhosis: Presumably from HCV. I assume the [facility] is taking care of this. - No inpatient needs (7) Hepatitis C: To be treated at the [facility]. (8) DVT prophylaxis: SCDs - Low DVT risk per admission calculator Total Time Total Time Spent Total Time Spent (In Minutes): 35 Discharge Plan Discharge Items Patient Disposition: Home - Self-Care Reason For Visit: WEAKNESS, ARF Discharge Diagnosis: Kidney injury Activity: Resume your previous activity Non-emergency contact: Primary Care Provider Call non-emergency contact if: your symptoms worsen and your temperature is above 101 Follow-up/Referrals: PCP,NO [Primary Care Provider] - Diet: Dialysis Renal Addtl Attending Provider Instructions: Mr. Cassidy, You were admitted for high potassium and kidney injury. This was likely caused by your lisinopril, spironolactone, ibuprofen, and some mild dehydration all stacking up on top of each other. Please restart your spironolactone to help keep your abdomen from swelling, but stop your lisinopril. Please only take the ibuprofen one time per day at most. You could also get [id number] ibupro fen and only take 400 mg one time per day to be safe. You can also take one tablet of Tylenol per day as well. This will not harm your liver as long as you keep it very low dose. Also, please stop your carvedilol because your heart rate has run in the 45-50 range while you have been in the hospital. Your heart rate went up with exercise and your blood pressure never fell, so we did not have a form coverer see you, but your [facility] doctors may send you to a form coverer. Please check your blood pressure at one once a day or once every other day to see how your blood pressure is running off some of your blood pressure medications. Please follow up with your [facility] doctors to be sure you are feeling better. Please hold your duloxetine since it was making you feel "hazy" and weak. Pending Studies at Discharge: No Stand-Alone Forms: Call Back Authorization, My [facility] Medications and DC Order Prescriptions: New acetaminophen [Mapap (acetaminophen)] 325 mg Tablet 500 mg PO DAILY PRN (Reason: pain) Qty: 1 RF: 0 Continued spironolactone 100 mg tablet 100 mg PO QAM RF: 0 pantoprazole 40 mg Tablet,Delayed Release (Dr/Ec) 40 mg PO DAILY RF: 0 ranitidine HCl 150 mg Tablet 150 mg PO BID PRN (Reason: gastritiis) RF: 0 allopurinol 300 mg Tablet 300 mg PO DAILY RF: 0 docusate sodium 100 mg Tablet 100 mg PO TID PRN (Reason: Constipation) RF: 0 cholecalciferol (vitamin D3) 1,000 unit Capsule 2,000 unit PO DAILY RF: 0 hydrophilic cream Cream 1 applic TOPICAL DAILY RF: 0 Changed ibuprofen 800 mg Tablet 800 mg PO DAILY PRN (Reason: Pain) Qty: 0 RF: 0 Discontinued carvedilol 25 mg Tablet 12.5 mg PO BID RF: 0 lisinopril 5 mg Tablet 5 mg PO DAILY RF: 0 duloxetine 30 mg Capsule,Delayed Release(Dr/Ec) 30 mg PO DAILY RF: 0 Discharge Orders: Discharge Order (Routine); Ordered 07/15/19 Ordered By: Shreyas Bean/Other Patient Handouts: Injury Acute Kidney Dc Admission Data Admit Date/Time: 07/12/19 14:02 Attending Provider: Shreyas Chavez Admit Provider: Eze Clements Primary Care Provider: PCP,NO Other Providers: Maurilio Mcarthur ; Shreyas Chavez Other Interventions: Discharge Summary Assessment (RN) Last Done: 07/15/19 10:00 [facility] Date/Time DO NOT enter until pt leaves facility: 07/15/19 10:19
== END 2019-07-15 10:19 | disposition home or self-care (01) | DRG 683 ==
LOC: ED 11:33 → SUATTDRO 14:02 → 2S 14:02

== ENCOUNTER 2022-11-24 20:43 | Inpatient (IN) ==
[2022-11-24 21:57] LABS: Appearance Urine Clear (Clear); Bacteria Urine Automated Negative (Negative); Bilirubin Urine Negative (Negative); Blood Urine Negative (Negative); Color Urine Dark Yellow; Epithelial Cell Urine Auto >30 /lpf (0-5); Glucose Urine UA Negative (Negative); Ketones Urine Trace (Negative); Leukocyte Esterase Urine Trace (Negative); Nitrite Urine Negative (Negative); Protein Urine 1+ (Negative); RBC Urine Automated 0-4 /hpf (0-4); Specific Gravity Urine 1.022 (1.000-1.030); Urobilinogen Urine Negative (Negative); pH Urine 5.5 (4.5-7.5)
[2022-11-24 22:09] LABS: Albumin Globulin Ratio 0.9 (0.9-2); Albumin Level 4.2 gm/dl (3.4-5.0); BUN Creatinine Ratio 19.1 (10-20); Bilirubin,Total 1.4 mg/dl (0.2-1.0); Calcium 9.6 mg/dl (8.5-10.1); Creatinine Clr Calc Pharmacy 72.1 ml/min; Est GFR (African American) 59.3 ml/min; Est GFR (Non-African American) 51.2 ml/min; Globulin 4.5 gm/dl (2.5-4.0); Potassium 4.5 mmol/L (3.5-5.1); Total Protein 8.7 gm/dl (6.0-8.3)
[2022-11-24 22:13] LABS: Basophils # (auto) 0.01 K/uL (0-0.2); Basophils % (auto) 0.1 %; Eosinophils # (auto) 0.04 K/uL (0-0.50); Eosinophils % (auto) 0.5 %; Hematocrit (blood only) 41.5 % (42.0-52.0); Hemoglobin 14.3 g/dl (14.0-18.0); Immature Granulocytes # (auto) 0.05 K/uL (0.01-0.20); Immature Granulocytes % (auto) 0.6 %; Lymphocytes # (auto) 1.34 K/uL (1.2-3.4); Lymphocytes % (auto) 15.8 %; Mean Corpuscular Hemoglobin 31.3 pg (25.0-34.0); Mean Corpuscular Hgb Conc 34.5 g/dL (32.0-36.0); Mean Corpuscular Volume 90.8 fL (80.0-100.0); Mean Platelet Volume 11.1 fL (9.4-12.4); Monocytes # (auto) 0.79 K/uL (0.11-0.59); Monocytes % (auto) 9.3 %; Neutrophils # (auto) 6.23 K/uL (1.40-6.50); Neutrophils % (auto) 73.7 %; Platelet Count 172 K/uL (130-400); RDW Coefficient of Variation 12.3 % (11.5-14.5); RDW Standard Deviation 41.1 fL (36.4-46.3); Red Blood Count 4.57 M/uL (4.70-6.10); White Blood Count 8.46 K/ul (4.8-10.8)
[2022-11-24 22:15] LABS: Troponin I High Sensitivity 5.3 pg/ml (0-20)
[2022-11-24] MEDS ORDERED: SODIUM CHLORIDE 0.9% 1000ML 1,000 ML IV SCH (22:45)
[2022-11-24] MEDS ORDERED: OPTIRAY 350 100ml IV ONE (22:55)
[2022-11-24] MEDS ORDERED: ACETAMINOPHEN 1,000 MG/100 ML VIAL IV STA (23:29)
[2022-11-24] MEDS ORDERED: KETOROLAC 30 MG/ML VIAL IV STA (23:29)
[2022-11-25] MEDS ORDERED: OPTIRAY 320 500ml IV ONE (00:24)
[2022-11-25] MEDS ORDERED: Heparin IV Adult Wt-Based Standard WITH Bolus Protocol IV STA (01:19)
[2022-11-25 01:31] LABS: INR 1.2 (0.9-1.1); Partial Thromboplastin Ratio 0.9; Partial Thromboplastin Time 26.1 Seconds (21.0-31.0); Prothrombin Time 12.3 Seconds (9.0-12.0)
[2022-11-25] MEDS ORDERED: HEPARIN SOD (PORCINE) 1000 UNIT/ML IV ONE (01:34)
[2022-11-25] MEDS ORDERED: HEPARIN SODIUM/DEXTROSE 25,000 UNITS/500 ML BAG IV SCH (01:45)
--- NOTE | 2022-11-25 02:05 | History & Physical Report ---
Date of Service November 25, 2022 Assessment & Plan (1) COVID-19: (2) Hepatitis C: (3) Vitamin D deficiency: (4) Gout: (5) Chronic GERD: (6) Hypertension: (7) Chronic kidney disease, stage III (moderate): (8) Hypertension: (9) Cirrhosis: (10) Pulmonary embolism on right: (11) Pulmonary nodule: Plan Pulmonary embolism right lower lobe- Family history on both sides with venous thromboembolism Likely contributory factor it was COVID-19 infection Hypercoagulable work-up Start heparin IV low-dose without bolus after laboratories drawn COVID-19 infection- Likely cause of the patient's excessive fatigue is a function of adrenal insufficiency Does not have any pulmonary or GI symptoms Do a trial of dexamethasone 6 mg IV daily and see if fatigue is improved Chronic kidney disease stage III- Creatinine 1.41, with range 1.34-3.32 Stable at this time Hypertension- Continue carvedilol 6.25 mg p.o. twice daily and spironolactone 100 mg every morning Gout- Continue allopurinol 300 mg p.o. daily GERD- Continue pantoprazole 40 mg daily History of Present Illness Chief Complaint: The patient presents to the emergency department with a cute onset of right lower chest pain and days of generalized fatigue Primary Care Provider: NO PCP The patient is a 67-year-old male with a past medical history including hepatitis C, vitamin D deficiency, gout, chronic GERD, hypertension, CKD stage III, hyponatremia, bradycardia, hypertension, history of hypertensive crisis, gout and cirrhosis. He presents to the emergency department with generalized fatigue of several days duration, and more cute onset of right lower chest pain. Significant work-up in the emergency department include the following: CT angiography PE protocol showed a right lower lobe pulmonary embolism, right middle lobe pulmonary nodule 0.5 cm and a few scattered infiltrates bilaterally. CT abdomen and pelvis was negative Significant laboratories: Sodium 132, creatinine 1.41. Patient is COVID-19 positive Allergies Allergy/AdvReac Type Severity Reaction Status Date / Time hydralazine AdvReac Severe Unresponsiv Verified 11/24/22 23:33 e codeine AdvReac Intermediate "MAKES ME Verified 11/24/22 23:33 GOOFEY" gabapentin AdvReac Unknown Unknown Verified 11/24/22 23:33 Home Medications Medication Instructions Recorded Confirmed Type allopurinol 300 mg tablet 300 mg PO DAILY 07/12/19 11/24/22 History pantoprazole 40 mg tablet,delayed 0 mg PO DAILY 07/12/19 11/24/22 History release spironolactone 100 mg tablet 100 mg PO QAM 07/12/19 11/24/22 History carvedilol 12.5 mg tablet (Coreg) 6.25 mg PO BID 12/08/19 11/24/22 History ibuprofen 200 mg tablet (Advil) 400 mg PO DAILY PRN Pain 12/08/19 11/24/22 History hydrophilic 1 applic topical DAILY PRN Skin 11/24/22 11/24/22 History Irritation Past Med/Surg History Medical History (Updated 11/25/22 @ 03:26 by Homar Gill MD) Chronic GERD Chronic kidney disease, stage III (moderate) Gout Hepatitis C Hypertension Neck pain No significant past medical history Vitamin D deficiency Family History Other No significant family history Social History Smoking Status: Never smoker Second Hand Exposure: No; Hx Alcohol Use: No Hx Substance Use: No Preferred Language: Mongolian Communication Ability: Effective Spr[place] Dyer Required: No Beliefs That Will Affect Care: None Current Living Situation: Alone Feels Safe at Home: Yes Assistive Devices: Hearing Aid - Bilateral Review of Systems Review of Systems: The patient denies palpitations, lower extremity swelling, sore throat, fevers, chills, sweats, nausea, vomiting, diarrhea , constipation, abdominal pain, pelvic pain, blood in urine or stool, dysuria, urinary frequency or urgency, lightheadedness, dizziness, headache, memory loss, loss of consciousness, rash, abnormal bruising or bleeding, imbalance, focal weakness, numbness or tingling in arms or legs, neck pain, or night sweats. The review of systems is otherwise negative other than for that already noted above, and at least 10 systems have been reviewed. Physical Exam Physical Exam: The patient is awake, alert and oriented 3, well developed and well nourished, normocephalic and atraumatic, lying in bed and in no acute distress. HEENT--PERRL, EOMI, mucous membranes and oropharynx moist Neck--supple. No JVD. No bruits. Thyroid normal, trachea midline, no a denopathy. Heart--normal S1 and S2. No murmurs, rubs or gallops. Lungs--decreased breath sounds throughout. No respiratory distress, no accessory muscle use. Abdomen--normal bowel sounds and soft. Nontender. Nondistended, no hernias or masses, no organomegaly. Extremities--no cyanosis or clubbing. No edema. Dermatologic--normal skin turgor, normal color, no abnormal lymph nodes, no rash. Neurologic--cranial nerves II through XII grossly intact. Rheumatologic--normal range of motion. Psychiatric--normal affect. Results & Data Results & Data ([facility]) Vital Signs (Past 12 Hours) Vital Signs Temp Pulse Pulse Resp BP BP Pulse Ox 11/24/22 21:56 76 11/24/22 22:19 78 20 153/94 H 96 11/24/22 20:49 37.1 C 83 16 147/85 H 97 O2 Del Method 11/24/22 21:56 11/24/22 22:19 Room Air 11/24/22 20:49 Room Air Laboratory Results Laboratory Results WBC 8.46 K/ul (4.8-10.8) 11/24/22 21:37 RBC 4.57 M/uL (4.70-6.10) L 11/24/22 21:37 Hgb 14.3 g/dl (14.0-18.0) 11/24/22 21:37 Hct 41.5 % (42.0-52.0) L 11/24/22 21:37 MCV 90.8 fL (80.0-100.0) 11/24/22 21:37 MCH 31.3 pg (25.0-34.0) 11/24/22 21:37 MCHC 34.5 g/dL (32.0-36.0) 11/24/22 21:37 RDW Std Deviation 41.1 fL (36.4-46.3) 11/24/22 21:37 RDW Coeff of Marli 12.3 % (11.5-14.5) 11/24/22 21:37 Plt Count 172 K/uL (130-400) 11/24/22 21:37 MPV 11.1 fL (9.4-12.4) 11/24/22 21:37 Immature Gran % (Auto) 0.6 % 11/24/22 21:37 Neut % (Auto) 73.7 % 11/24/22 21:37 Lymph % (Auto) 15.8 % 11/24/22 21:37 [place] % (Auto) 9.3 % 11/24/22 21:37 Eos % (Auto) 0.5 % 11/24/22 21:37 Baso % (Auto) 0.1 % 11/24/22 21:37 Neut # (Auto) 6.23 K/uL (1.40-6.50) 11/24/22 21:37 Lymph # (Auto) 1.34 K/uL (1.2-3.4) 11/24/22 21:37 [place] # (Auto) 0.79 K/uL (0.11-0.59) H 11/24/22 21:37 Eos # (Auto) 0.04 K/uL (0-0.50) 11/24/22 21:37 Baso # (Auto) 0.01 K/uL (0-0.2) 11/24/22 21:37 Immature Gran # (Auto) 0.05 K/uL (0.01-0.20) 11/24/22 21:37 PT 12.3 Seconds (9.0-12.0) H 11/24/22 21:38 INR 1.2 (0.9-1.1) H 11/24/22 21:38 APTT 26.1 Seconds (21.0-31.0) 11/24/22 21:38 PTT Ratio 0.9 11/24/22 21:38 Sodium 132 mmol/L (136-145) L 11/24/22 21:37 Potassium 4.5 mmol/L (3.5-5.1) 11/24/22 21:37 Chloride 98 mmol/L (98-107) 11/24/22 21:37 Carbon Dioxide 27 mmol/L (21-32) 11/24/22 21:37 Anion Gap 7 (3-11) 11/24/22 21:37 BUN 27 mg/dl (6-23) H 11/24/22 21:37 Creatinine 1.41 mg/dl (0.6-1.4) H 11/24/22 21:37 Est Cr Clr Drug Dosing 72.1 ml/min 11/24/22 21:37 Est GFR ( Amer) 59.3 ml/min 11/24/22 21:37 Est GFR (Non-Af Amer) 51.2 ml/min 11/24/22 21:37 BUN/Creatinine Ratio 19.1 (10-20) 11/24/22 21:37 Glucose 93 mg/dl (70-99(Fasting)) 11/24/22 21:37 Calcium 9.6 mg/dl (8.5-10.1) 11/24/22 21:37 Total Bilirubin 1.4 mg/dl (0.2-1.0) H 11/24/22 21:37 AST 26 U/L (13-39) 11/24/22 21:37 ALT 22 U/L (7-52) 11/24/22 21:37 Alkaline Phosphatase 67 U/L (34-104) 11/24/22 21:37 Troponin I High Sens 5.3 pg/ml (0-20) 11/24/22 21:37 Total Protein 8.7 gm/dl (6.0-8.3) H 11/24/22 21:37 Albumin 4.2 gm/dl (3.4-5.0) 11/24/22 21:37 Globulin 4.5 gm/dl (2.5-4.0) H 11/24/22 21:37 Albumin/Globulin Ratio 0.9 (0.9-2) 11/24/22 21:37 Amylase 85 U/L (25-115) 11/24/22 21:37 Lipase 30 U/L (11-82) 11/24/22 21:37 TSH 1.455 uIu/ml (0.300-4.500) 11/24/22 21:38 Urine Color Dark Yellow 11/24/22 21:21 Urine Appearance Clear (Clear) 11/24/22 21:21 Urine pH 5.5 (4.5-7.5) 11/24/22 21:21 Ur Specific [place] 1.022 (1.000-1.030) 11/24/22 21:21 Urine Protein 1+ (Negative) H 11/24/22 21:21 Urine Glucose (UA) Negative (Negative) 11/24/22 21:21 Urine Ketones Trace (Negative) H 11/24/22 21:21 Urine Blood Negative (Negative) 11/24/22 21:21 Urine Nitrite Negative (Negative) 11/24/22 21:21 Urine Bilirubin Negative (Negative) 11/24/22 21:21 Urine Urobilinogen Negative (Negative) 11/24/22 21:21 Ur Leukocyte Esterase Trace (Negative) H 11/24/22 21:21 Urine WBC (Auto) 5-10 /hpf (0-5) H 11/24/22 21:21 Urine RBC (Auto) 0-4 /hpf (0-4) 11/24/22 21:21 U Hyaline Cast (Auto) 1-5 /lpf (0-5) 11/24/22 21:21 U Epithel Cells (Auto) >30 /lpf (0-5) H 11/24/22 21:21 Urine Bacteria (Auto) Negative (Negative) 11/24/22 21:21 SARS-CoV-2, RNA, NAAT POSITIVE (NEGATIVE) A* 11/24/22 22:40 Code Status & VTE Plan Code Status Full code VTE Prophylaxis Plan VTE Prophylaxis will be ordered: Yes PG Care Time/CCT Total # of Minutes Spent Total Time Spent with Patient: Total time spent is greater than 50% in coordination of care (as documented) at patient's floor/unit and/or counseling patient: Coding Level of Care Code 63191 INT INP/OBS CARE 3/75MIN Diagnoses COVID-19 U07.1 Hepatitis C B19.20 Vitamin D deficiency E55.9 Gout M10.9 Chronic GERD K21.9 Hypertension I10 Chronic kidney disease, stage III (moderate) N18.3 Cirrhosis K74.60 Pulmonary embolism on right I26.99 Pulmonary nodule R91.1
[2022-11-25] MEDS ORDERED: Heparin IV Adult Wt-Based Low-Dose *NO* Bolus Protocol IV SCH (05:23)
[2022-11-25] MEDS ORDERED: HYDROPHILIC TOP PRN (05:23)
[2022-11-25] MEDS ORDERED: ONDANSETRON INJ 2 MG/ML 2 ML VIAL IV PRN (05:23)
--- NOTE | 2022-11-25 05:44 | Emergency Department Note ---
History of Present Illness General Chief complaint: Flank Pain Stated complaint: EXTREME FATIGUE,R FLANK PAIN Time Seen by Provider: 11/24/22 22:21 History of Present Illness Maximum Pain Intensity: 6 This is a 67-year-old male presenting to the emergency department for evaluation of right side abdominal pain. Patient has a history of hepatitis C, cirrhosis, and chronic kidney disease. He has done very well over the past few years and typically does follow with the [facility]. The patient has had significant fatigue over the past 2 weeks, where he is sleeping upwards of 20 hours a day. He did not think much of this, but became more concerned when he began with the belly pain. He has not had fevers or chills. He does not endorse any chest pain chest tightness, or shortness of breath. He has not taken anything [id number] for symptoms and rates his discomfort a 6/10. Home Medications Medication Instructions Recorded Confirmed Type allopurinol 300 mg tablet 300 mg PO DAILY 07/12/19 11/24/22 History pantoprazole 40 mg tablet,delayed 0 mg PO DAILY 07/12/19 11/24/22 History release spironolactone 100 mg tablet 100 mg PO QAM 07/12/19 11/24/22 History carvedilol 12.5 mg tablet (Coreg) 6.25 mg PO BID 12/08/19 11/24/22 History ibuprofen 200 mg tablet (Advil) 400 mg PO DAILY PRN Pain 12/08/19 11/24/22 History hydrophilic 1 applic topical DAILY PRN Skin 11/24/22 11/24/22 History Irritation Allergies Allergy/AdvReac Type Severity Reaction Status Date / Time hydralazine AdvReac Severe Unresponsiv Verified 11/24/22 23:33 e codeine AdvReac Intermediate "MAKES ME Verified 11/24/22 23:33 GOOFEY" gabapentin AdvReac Unknown Unknown Verified 11/24/22 23:33 Past Med/Surg History Medical History Chronic GERD Chronic kidney disease, stage III (moderate) Gout Hepatitis C History of orthopedic surgery Hypertension Neck pain No significant past medical history Vitamin D deficiency Family History Other No significant family history Social History Smoking Status: Never smoker Second Hand Exposure: No; Hx Alcohol Use: Yes Hx Substance Use: No Preferred Language: Romanian Communication Ability: Effective Plant Attendant Required: No Beliefs That Will Affect Care: None Current Living Situation: Alone Feels Safe at Home: Yes Assistive Devices: Glasses and Hearing Aid - Bilateral Review of Systems A total of 10 systems reviewed and were otherwise negative Physical Exam Vital Signs Vital Signs - 24 hr 11/24/22 20:49 11/24/22 22:19 11/24/22 21:56 Temperature 37.1 C Temperature Source Temporal Artery Scan Pulse Rate 83 76 Pulse Rate [Apical] 78 Respiratory Rate 16 20 Respiratory Effort / Characteristics Non-Labored Spontaneous Respiratory Depth Normal Blood Pressure 147/85 H Blood Pressure [Right Arm] 153/94 H Blood Pressure Mean 105 Blood Pressure Mean [Right Arm] 113 Pulse Oximetry 97 96 Oxygen Delivery Method Room Air Room Air Sepsis Recent Fever Within 48 Hours No Sepsis New/Unexplained Change in Mental Status No Sepsis Action Taken by Nursing No Action Required VITALS: Vitals are noted on the nurse's note and reviewed by myself. Vital signs stable. GENERAL: Well-developed, well-nourished, white male, who is pleasant but mildly uncomfortable appearing on exam. HEAD: Normocephalic atraumatic. NECK: Supple without nuchal rigidity. No lymphadenopathy. No thyromegaly. Cervical spine is nontender. HEART: Regular rate and rhythm without murmurs gallops or rubs. LUNGS: Clear to auscultation bilaterally without wheezes, rales or rhonchi. No retractions or accessory muscle use. ABDOMEN: Positive normal bowel sounds x 4. Soft, nontender, without masses or organomegaly. No guarding or rebound tenderness. MUSCULOSKELETAL: No muscle atrophy, erythema, or edema noted. Full range of motion in all extremities. NEURO: Patient was alert and oriented to person place and time. CN II through XII grossly intact. Course Administered Medications Allopurinol (Allopurinol 300 Mg Tab) 300 mg PO DAILY DANIA Stop: 12/25/22 08:59 Last Admin: 11/25/22 08:59 Dose: 300 mg Documented By: AGUSTINA Carvedilol (Carvedilol 6.25 Mg Tab) 6.25 mg PO BID DANIA Stop: 12/25/22 08:59 Last Admin: 03/01/23 09:00 Dose: Not Given Documented By: AGUSTINA Dexamethasone 6 mg/ Syringe 1.5 mls @ 1 mls/min IV Q24H DANIA Stop: 12/25/22 05:59 Last Admin: 11/25/22 06:14 Dose: 1 mls/min Documented By: MARYBETH Heparin Sodium/Dextrose (Heparin Sodium/Dextrose) 25,000 units in 500 mls @ 20 mls/hr IV .Q24H DANIA; Protocol Stop: 12/25/22 05:22 Last Titration: 11/25/22 11:44 Dose: 1,000 units/hr, 20 mls/hr Documented By: AGUSTINA Co-signed By: KATELYN Admin: 11/25/22 06:32 Dose: 1,000 units/hr, 20 mls/hr Documented By: MARYBETH Co-signed By: CÉSAR Pantoprazole Sodium (Pantoprazole 40 Mg Tab) 40 mg PO DAILY DANIA Stop: 12/25/22 08:59 Last Admin: 11/25/22 08:59 Dose: 40 mg Documented By: AGUSTINA Spironolactone (Spironolactone 100 Mg Tab) 100 mg PO QAM DANIA Stop: 12/25/22 08:59 Last Admin: 11/25/22 08:59 Dose: 100 mg Documented By: AGUSTINA Discontinued Medications Heparin Sodium (Porcine) (Heparin Sod (Porcine) 1000 Unit/Ml) 1 units IV NOW ONE Stop: 11/25/22 01:35 Last Admin: 11/25/22 03:40 Dose: 8,000 units Documented By: Co-signed By: JOSH Heparin Sodium/Dextrose (Heparin Iv Adult Wt-Based Standard With Bolus Protocol) 1 each IV NOW STA; Protocol Stop: 11/25/22 01:20 Last Admin: 11/25/22 03:38 Dose: 1 each Documented By: Sodium Chloride (Nss 1000ml) 1,000 mls @ 999 mls/hr IV .Q1H1M DANIA Stop: 11/24/22 23:45 Last Infusion: 11/25/22 00:40 Dose: 0 mls/hr Documented By: Admin: 11/24/22 23:38 Dose: 999 mls/hr Documented By: Acetaminophen (Ofirmev) 1,000 mg in 100 mls @ 400 mls/hr IV NOW STA Stop: 11/24/22 23:43 Last Infusion: 11/24/22 23:56 Dose: 0 mls/hr Documented By: Admin: 11/24/22 23:40 Dose: 400 mls/hr Documented By: Heparin Sodium/Dextrose (Heparin Sodium/Dextrose) 25,000 units in 500 mls @ 36 mls/hr IV .[id number] [facility]; Protocol Stop: 12/25/22 01:44 Last Admin: 11/25/22 03:38 Dose: 1,800 units/hr, 36 mls/hr Documented By: Co-signed By: JOSH Ioversol (Optiray 350 100ml) 100 ml IV ONCE ONE Stop: 11/24/22 22:56 Last Admin: 11/24/22 22:56 Dose: 88 ml Documented By: BRADY Ioversol (Optiray 320 500ml) 125 ml IV ONCE ONE Stop: 11/25/22 00:25 Last Admin: 11/25/22 00:24 Dose: 116 ml Documented By: BRADY Ketorolac Tromethamine (Ketorolac 30 Mg/Ml Vial) 30 mg IV NOW STA Stop: 11/24/22 23:30 Last Admin: 11/24/22 23:36 Dose: 30 mg Documented By: Medical Decision Making Differential Diagnosis Differential diagnosis includes, but is not limited to: Cholecystitis, pancreatitis, hepatitis, kidney stone, myocardial infarction, dysrhythmia, pericarditis, pneumothorax, aortic aneurysm/dissection, DVT/PE, anxiety, GERD, PUD, electrolyte imbalance, thyroid disorder, pneumonia, bronchitis, pancreatitis, and others Laboratory Data 11/24/22 21:37 11/24/22 21:37 Lab Results 11/24/22 11/24/22 11/24/22 Range/Units 21:21 21:37 21:37 WBC 8.46 (4.8-10.8) K/ul RBC 4.57 L (4.70-6.10) M/uL Hgb 14.3 (14.0-18.0) g/dl Hct 41.5 L (42.0-52.0) % MCV 90.8 (80.0-100.0) fL MCH 31.3 (25.0-34.0) pg MCHC 34.5 (32.0-36.0) g/dL RDW Std Deviation 41.1 (36.4-46.3) fL RDW Coeff of Marli 12.3 (11.5-14.5) % Plt Count 172 (130-400) K/uL MPV 11.1 (9.4-12.4) fL Immature Gran % (Auto) 0.6 % Neut % (Auto) 73.7 % Lymph % (Auto) 15.8 % Josephine % (Auto) 9.3 % Eos % (Auto) 0.5 % Baso % (Auto) 0.1 % Neut # (Auto) 6.23 (1.40-6.50) K/uL Lymph # (Auto) 1.34 (1.2-3.4) K/uL Josephine # (Auto) 0.79 H (0.11-0.59) K/uL Eos # (Auto) 0.04 (0-0.50) K/uL Baso # (Auto) 0.01 (0-0.2) K/uL Immature Gran # (Auto) 0.05 (0.01-0.20) K/uL PT (9.0-12.0) Seconds INR (0.9-1.1) APTT (21.0-31.0) Seconds PTT Ratio Sodium 132 L (136-145) mmol/L Potassium 4.5 (3.5-5.1) mmol/L Chloride 98 (98-107) mmol/L Carbon Dioxide 27 (21-32) mmol/L Anion Gap 7 (3-11) BUN 27 H (6-23) mg/dl Creatinine 1.41 H (0.6-1.4) mg/dl Est Cr Clr Drug Dosing 72.1 ml/min Est GFR ( Amer) 59.3 ml/min Est GFR (Non-Af Amer) 51.2 ml/min BUN/Creatinine Ratio 19.1 (10-20) Glucose 93 (70-99(Fasting)) mg/dl Calcium 9.6 (8.5-10.1) mg/dl Total Bilirubin 1.4 H (0.2-1.0) mg/dl AST 26 (13-39) U/L ALT 22 (7-52) U/L Alkaline Phosphatase 67 (34-104) U/L Troponin I High Sens 5.3 (0-20) pg/ml Total Protein 8.7 H (6.0-8.3) gm/dl Albumin 4.2 (3.4-5.0) gm/dl Globulin 4.5 H (2.5-4.0) gm/dl Albumin/Globulin Ratio 0.9 (0.9-2) Amylase 85 (25-115) U/L Lipase 30 (11-82) U/L TSH (0.300-4.500) uIu/ml Urine Color Dark Yellow Urine Appearance Clear (Clear) Urine pH 5.5 (4.5-7.5) Ur Specific [place] 1.022 (1.000-1.030) Urine Protein 1+ H (Negative) Urine Glucose (UA) Negative (Negative) Urine Ketones Trace H (Negative) Urine Blood Negative (Negative) Urine Nitrite Negative (Negative) Urine Bilirubin Negative (Negative) Urine Urobilinogen Negative (Negative) Ur Leukocyte Esterase Trace H (Negative) Urine WBC (Auto) 5-10 H (0-5) /hpf Urine RBC (Auto) 0-4 (0-4) /hpf U Hyaline Cast (Auto) 1-5 (0-5) /lpf U Epithel Cells (Auto) >30 H (0-5) /lpf Urine Bacteria (Auto) Negative (Negative) SARS-CoV-2, RNA, NAAT (NEGATIVE) 11/24/22 11/24/22 11/24/22 Range/Units 21:38 21:38 22:40 WBC (4.8-10.8) K/ul RBC (4.70-6.10) M/uL Hgb (14.0-18.0) g/dl Hct (42.0-52.0) % MCV (80.0-100.0) fL MCH (25.0-34.0) pg MCHC (32.0-36.0) g/dL RDW Std Deviation (36.4-46.3) fL RDW Coeff of Marli (11.5-14.5) % Plt Count (130-400) K/uL MPV (9.4-12.4) fL Immature Gran % (Auto) % Neut % (Auto) % Lymph % (Auto) % Josephine % (Auto) % Eos % (Auto) % Baso % (Auto) % Neut # (Auto) (1.40-6.50) K/uL Lymph # (Auto) (1.2-3.4) K/uL Josephine # (Auto) (0.11-0.59) K/uL Eos # (Auto) (0-0.50) K/uL Baso # (Auto) (0-0.2) K/uL Immature Gran # (Auto) (0.01-0.20) K/uL PT 12.3 H (9.0-12.0) Seconds INR 1.2 H (0.9-1.1) APTT 26.1 (21.0-31.0) Seconds PTT Ratio 0.9 Sodium (136-145) mmol/L Potassium (3.5-5.1) mmol/L Chloride (98-107) mmol/L Carbon Dioxide (21-32) mmol/L Anion Gap (3-11) BUN (6-23) mg/dl Creatinine (0.6-1.4) mg/dl Est Cr Clr Drug Dosing ml/min Est GFR ( Amer) ml/min Est GFR (Non-Af Amer) ml/min BUN/Creatinine Ratio (10-20) Glucose (70-99(Fasting)) mg/dl Calcium (8.5-10.1) mg/dl Total Bilirubin (0.2-1.0) mg/dl AST (13-39) U/L ALT (7-52) U/L Alkaline Phosphatase (34-104) U/L Troponin I High Sens (0-20) pg/ml Total Protein (6.0-8.3) gm/dl Albumin (3.4-5.0) gm/dl Globulin (2.5-4.0) gm/dl Albumin/Globulin Ratio (0.9-2) Amylase (25-115) U/L Lipase (11-82) U/L TSH 1.455 (0.300-4.500) uIu/ml Urine Color Urine Appearance (Clear) Urine pH (4.5-7.5) Ur Specific [place] (1.000-1.030) Urine Protein (Negative) Urine Glucose (UA) (Negative) Urine Ketones (Negative) Urine Blood (Negative) Urine Nitrite (Negative) Urine Bilirubin (Negative) Urine Urobilinogen (Negative) Ur Leukocyte Esterase (Negative) Urine WBC (Auto) (0-5) /hpf Urine RBC (Auto) (0-4) /hpf U Hyaline Cast (Auto) (0-5) /lpf U Epithel Cells (Auto) (0-5) /lpf Urine Bacteria (Auto) (Negative) SARS-CoV-2, RNA, NAAT POSITIVE A* (NEGATIVE) Imaging Data Radiologist's Impression: Abdomen/Pelvis CT 11/24/22 22:31 CT abd pelvis IV con only CLINICAL HISTORY: right side abd pain TECHNIQUE: Helical axial images of the abdomen and pelvis were obtained and displayed. Automated dose lowering techniques and/or adjustment according to patient size were utilized for this exam. This exam was performed with intravenous contrast. CT DOSE: 1523.32 mGy.cm COMPARISON: Comparison is made to CT abdomen pelvis 07/13/2019 FINDINGS: Lower chest: Bibasilar atelectasis versus scarring is seen. Liver: Nodular contour of the liver is seen compatible with cirrhosis. Gallbladder and biliary tree: Cholelithiasis is seen without evidence of cholecystitis. No intra- or extrahepatic biliary ductal dilation. Pancreas: Unremarkable, no focal lesions. Spleen: Unremarkable. Adrenals: Unremarkable. Kidneys and ureters: Subcentimeter hypodensities are too small to characterize. Bladder: Unremarkable. Reproductive organs: Unremarkable. Bowel: The appendix is normal. Lymph nodes Retroperitoneal: Unremarkable. Pelvic: Unremarkable. Mesenteric: Unremarkable. Peritoneum: Normal. Vessels: Atherosclerotic calcifications are seen. A left splenorenal shunt is noted. Abdominal wall: Unremarkable. Bones: Degenerative changes in the visualized spine. IMPRESSION: No acute abnormalities are seen. Cirrhosis and vascular changes as above. ACT 112: Negative or not required by law. Electronically signed by: Dick Dai M.D. 11/25/2022 9:05 AM Preliminary Findings Only See Final Report For Complete Findings CT ABDOMEN & PELVIS With Contrast: No evidence of acute abdominal or pelvic process. Cholelithiasis. Small splenorenal shunt is again noted within the left side of the abdomen. Right base dependent atelectasis. Radiologist:Yonas Abdi M.D. Preliminary Findings Only See Final Report For Complete Findings CTA CHEST: Study is positive for pulmonary embolism to the right lower lobe pulmonary artery extending into the segmental branches. Discussed with Randy Collins PA-C on 11/25 00:53 (-05:00) No definite evidence of left side of pulmonary emboli. No evidence of right heart strain. 0.5 cm pulmonary nodule in the right mid dle lobe best seen on series 3 image 50 and 0.2 cm pulmonary nodule within the left upper lobe best seen on series 3 image 61. Small patchy peripheral consolidations within the right lung base and medial lef t lung base. Radiologist:Yonas Abdi M.D. [facility] Narrative Physical exam and history were performed. Nursing notes, EMR, and Medication List were personally reviewed. No social concerns were identified as barriers to patients care. Patient appears to have pain primarily in the right side of his abdomen. The patient does not appear toxic on examination, but typically does not come to the ER. He does have some chronic comorbidities. IV access was established and labs were obtained. EKG was performed that was poor baseline. It does not show obvious acute ST elevation. Because of the discomfort in his flank he was sent to CT scan for imaging. Patient's blood work is as above and was reviewed. He does not have a significantly elevated white blood cell count, gross anemia, bandemia, or significant electrolyte imbalance. Creatinine is slightly elevated at 1.41. Glucose is 93. Transaminases are not diagnostic to suggest recurrence of his hepatitis. Troponin is negative. Lipase is normal. Urine is without significant acute findings. Patient's COVID testing is POSITIVE. CT imaging was performed and informally evaluated by myself and read by radiology showing no acute process in the abdomen and pelvis. With the patient's COVID-positive findings I did perform a chest x-ray out of concern for possible pulmonary etiology of his pain, and comparing this to previous EKG he does appear to have some right-sided infiltrate versus other findings. The patient was sent to CT scan for pulmonary embolism study, and this was POSITIVE for right-sided pulmonary emboli. Overall the patient does not appear well for discharge home. I did place orders for heparin. The case was discussed with the on-call hospitalist team who agreed to evaluate the patient here in the ER. Please see their dictation for further patient course, plan, and disposition. The chart was completed utilizing Integrated [employer]ometric[employer] Voice Recognition Software. Grammatical errors, random word insertions, pronoun errors, and incomplete sentences are an occasional consequence of this system due to software limitations, ambient noise, and hardware issues. Any formal questions or concerns about the content, text, or information contained within the body of this dictation should be directly addressed to the provider for clarification. . Impression & Plan Pulmonary embolism on right, COVID-19 Discharge Plan Visit Data Chief Complaint: Flank Pain Stated Complaint: EXTREME FATIGUE,R FLANK PAIN ED Provider: Maurilio Ordonez ED Midlevel Provider: Randy Collins Discharge Problem: Pulmonary embolism on right, COVID-19 Patient Disposition: Admitted As Inpatient Discharge Instructions Interventions: ED Discharge Assessment Last Done: 11/25/22 04:16
[2022-11-25] MEDS: dexAMETHasone 6 MG in SYRINGE 0 ML IV SCH (06:14)
[2022-11-25] MEDS: HEPARIN SODIUM/DEXTROSE 25,000 UNITS/500 ML BAG IV SCH (06:32)
--- NOTE | 2022-11-25 06:39 | Ultrasound Report ---
BILATERAL LOWER EXTREMITY VENOUS DOPPLER HISTORY: Acute pain and swelling of the lower legs PE COMPARISON STUDY: 12/13/2016 FINDINGS: There is normal compressibility, flow, and augmentation within the bilateral lower extremit y deep venous systems. IMPRESSION: No DVT within the right or left lower extremity. ACT 112: Negative or not required by law. Electronically signed by: Angel Massey M.D. 11/25/2022 6:37 AM
--- NOTE | 2022-11-25 07:07 | XRay Report ---
XR chest 1V portable CLINICAL HISTORY: atypical ruq abd pain TECHNIQUE: Single frontal radiograph of the chest was obtained. Comparison: Prior chest radiograph 12/08/2019 FINDINGS: No lines and tubes are seen. Calcified aortic knob is seen. The lungs are clear. No evidence of pleur al effusion or pneumothorax. IMPRESSION: No acute chest disease. ACT 112: Negative or not required by law. Electronically signed by: Dick Dai M.D. 11/25/2022 7:05 AM
--- NOTE | 2022-11-25 08:09 | CT Scan Report ---
CT angio chest PE protocol CLINICAL HISTORY: covid +, atypical pain TECHNIQUE: Multidetector row helical CT of the chest was performed with angiographic protocol. Cast l and sagittal reformations were obtained. Coronal and sagittal MIPS were obtained from the axial la a set and were submitted for review. Automated dose lowering techniques and/or adjustment according to patient size were utilized for this exam. CT DOSE: 837.94 mGy.cm Comparison: Comparison is made to CT thorax 10/02/2016 FINDINGS: Lungs and pleura: Atelectasis is seen with suggestion of tiny right lower lobe consolidation. There i s a 5 mm in the right middle lobe (series 4 image 125). Calcified granulomata are also seen. Heart and pericardium: Heart size is normal. No pericardial effusion. Vessels: Moderate atherosclerotic changes in the aorta and coronary arteries. There is a right lower lobe pulmonary embolus extending into the sublingual branches. Mediastinum and odette: Subcentimeter lymph nodes are seen. Chest wall and lower neck: Unremarkable. Abdomen: Unremarkable. Bones: Degenerative changes in the thoracic spine. IMPRESSION: Right lower lobe pulmonary embolus is seen with possible developing pulmonary infarct. No evidence of right heart strain. ACT 112: Negative or not required by law. Electronically signed by: Dick Dai M.D. 11/25/2022 8:08 AM
[2022-11-25] MEDS: allopurinoL 300 MG TAB PO SCH (08:59)
[2022-11-25] MEDS: SPIRONOLACTONE 100 MG TAB PO SCH (08:59)
[2022-11-25] MEDS: PANTOprazole 40 MG TAB PO SCH (08:59)
[2022-11-25] MEDS: carvediloL 6.25 MG TAB PO SCH ×2 (09:00→22:21)
--- NOTE | 2022-11-25 09:06 | CT Scan Report ---
CT abd pelvis IV con only CLINICAL HISTORY: right side abd pain TECHNIQUE: Helical axial images of the abdomen and pelvis were obtained and displayed. Automated dose lowering techniques and/or adjustment according to patient size were utilized for this exam. This e xam was performed with intravenous contrast. CT DOSE: 1523.32 mGy.cm COMPARISON: Comparison is made to CT abdomen pelvis 07/13/2019 FINDINGS: Lower chest: Bibasilar atelectasis versus scarring is seen. Liver: Nodular contour of the liver is seen compatible with cirrhosis. Gallbladder and biliary tree: Cholelithiasis is seen without evidence of cholecystitis. No intra- or extrahepatic biliary ductal dilation. Pancreas: Unremarkable, no focal lesions. Spleen: Unremarkable. Adrenals: Unremarkable. Kidneys and ureters: Subcentimeter hypodensities are too small to characterize. Bladder: Unremarkable. Reproductive organs: Unremarkable. Bowel: The appendix is normal. Lymph nodes Retroperitoneal: Unremarkable. Pelvic: Unremarkable. Mesenteric: Unremarkable. Peritoneum: Normal. Vessels: Atherosclerotic calcifications are seen. A left splenorenal shunt is noted. Abdominal wall: Unremarkable. Bones: Degenerative changes in the visualized spine. IMPRESSION: No acute abnormalities are seen. Cirrhosis and vascular changes as above. ACT 112: Negative or not required by law. Electronically signed by: Dick Dai M.D. 11/25/2022 9:05 AM
[2022-11-25 11:38] LABS: Partial Thromboplastin Ratio 1.9
[2022-11-25 11:39] LABS: Partial Thromboplastin Time 52.7 Seconds (21.0-31.0)
--- NOTE | 2022-11-25 15:35 | Electrocardiogram Report ---
Test Reason : Blood Pressure : / mmHG Vent. Rate : 079 BPM Atrial Rate : 079 BPM P-R Int : 000 ms QRS Dur : 092 ms QT Int : 356 ms P-R-T Axes : 000 -37 032 degrees QTc Int : 408 ms Normal sinus rhythm Left axis deviation Minimal voltage criteria for LVH, may be normal variant Nonspecific ST and T wave abnormality Abnormal ECG When compared with ECG of 08-DEC-2019 18:32, No significant change Confirmed by Delbert Franklin ([id number]) on 11/25/2022 3:35:00 PM Referred By: REFERRED SELF Confirmed By:Delbert Franklin
--- NOTE | 2022-11-25 21:15 | Hospitalist Progress Note ---
Date of Service November 25, 2022 Assessment & Plan (1) Pulmonary embolism on right: Plan: with possible RLL pulmonary infarction. suspect hypercoagulable state from COVID-19 infection +/- genetic/inherited predisposition given strong family history of VTE. genetic w/u has been dispatched by admitting MD. CT chest/abd/pelvis without signs of malignancy. Does have cirrhosis from prior HepC infection which can cause hypercoagulable state as well. Cont heparin infusion. Investigate cost of Eliquis in am tomorrow. Dopplers legs noted to be negative. (2) COVID-19: Plan: Suspect he is about 2 weeks into his illness. The pro-inflammatory state from COVID often will cause VTE about 10-14+ days into the illness; thus, time course fits for his presentation. Thus far no evidence of pneumonia. No other complications. Defer on Remdesivir or Steroid therapy. Can stop dexamethasone. Cont airborne precautions for now. (3) Hepatitis C: Plan: With resulting cirrhosis. Compensated on exam and radiographically. (4) Hypertension: Plan: Cont coreg Cont aldactone (5) Cirrhosis: Plan: Compensated Cont aldactone (6) Pulmonary nodule: Plan: 5mm RML nodule will need surveillance (7) Hyponatremia: Plan: likely 2nd to aldactone recheck BMP am (8) GERD (gastroesophageal reflux disease): Plan: cont PPI (9) Gout: Plan: cont allopurinol prophylaxis Plan observe overnight hopefully can transition to PO Eliquis in am if cost is reasonable Admission and Anticipated Discharge Date Admission Date: November 25, 2022 Subjective tele stable overnight pt overall feeling ok except for mild right lower costal discomfort - but improved from yesterday he has been fatigued since ~11/13 denies fevers, chills minimal cough white sputum, if any robust appetite he questions if he really has COVID illness +family history of DVT/PE Review of Systems Review of Systems: gen - fatigue, but otherwise good appetite HENT - no sore throat, congestion CV - no central or L-sided CP; no pleuritic pain GI - no N/V or abd pain - voiding fine Physical Exam Physical Exam: gen - obese, NAD, looks good mouth - MMM neck - no JVD heart - RRR, s1 s2, no murmur lungs - CTA b/l, no rales abd - mildly tender just under R costal margin (mild only); BS+, no HSM, soft ext - no edema, pulses 2+ b/l psych - a/o x 3 Results & Data Results & [facility] ([facility]) Vital Signs (Past 12 Hours) Vital Signs Temp Pulse Pulse Resp BP Pulse Ox O2 Del Method 11/25/22 18:43 36.4 C L 65 18 114/71 96 Room Air 11/25/22 16:29 36.6 C 63 18 108/67 95 Room Air 11/25/22 15:40 61 11/25/22 11:28 36.3 C L 60 20 102/65 96 Room Air Laboratory Results Laboratory Results - last 48 hr 11/24/22 11/24/22 11/24/22 21:21 21:37 21:37 WBC 8.46 RBC 4.57 L Hgb 14.3 Hct 41.5 L MCV 90.8 MCH 31.3 MCHC 34.5 RDW Std Deviation 41.1 RDW Coeff of Marli 12.3 Plt Count 172 MPV 11.1 Immature Gran % (Auto) 0.6 Neut % (Auto) 73.7 Lymph % (Auto) 15.8 [place] % (Auto) 9.3 Eos % (Auto) 0.5 Baso % (Auto) 0.1 Neut # (Auto) 6.23 Lymph # (Auto) 1.34 [place] # (Auto) 0.79 H Eos # (Auto) 0.04 Baso # (Auto) 0.01 Immature Gran # (Auto) 0.05 PT INR APTT PTT Ratio Sodium 132 L Potassium 4.5 Chloride 98 Carbon Dioxide 27 Anion Gap 7 BUN 27 H Creatinine 1.41 H Est Cr Clr Drug Dosing 72.1 Est GFR ( Amer) 59.3 Est GFR (Non-Af Amer) 51.2 BUN/Creatinine Ratio 19.1 Glucose 93 Calcium 9.6 Total Bilirubin 1.4 H AST 26 ALT 22 Alkaline Phosphatase 67 Troponin I High Sens 5.3 Total Protein 8.7 H Albumin 4.2 Globulin 4.5 H Albumin/Globulin Ratio 0.9 Amylase 85 Lipase 30 TSH Urine Color Dark Yellow Urine Appearance Clear Urine pH 5.5 Ur Specific [place] 1.022 Urine Protein 1+ H Urine Glucose (UA) Negative Urine Ketones Trace H Urine Blood Negative Urine Nitrite Negative Urine Bilirubin Negative Urine Urobilinogen Negative Ur Leukocyte Esterase Trace H Urine WBC (Auto) 5-10 H Urine RBC (Auto) 0-4 U Hyaline Cast (Auto) 1-5 U Epithel Cells (Auto) >30 H Urine Bacteria (Auto) Negative SARS-CoV-2, RNA, NAAT 11/24/22 11/24/22 11/24/22 21:38 21:38 22:40 WBC RBC Hgb Hct MCV MCH MCHC RDW Std Deviation RDW Coeff of Marli Plt Count MPV Immature Gran % (Auto) Neut % (Auto) Lymph % (Auto) [place] % (Auto) Eos % (Auto) Baso % (Auto) Neut # (Auto) Lymph # (Auto) [place] # (Auto) Eos # (Auto) Baso # (Auto) Immature Gran # (Auto) PT 12.3 H INR 1.2 H APTT 26.1 PTT Ratio 0.9 Sodium Potassium Chloride Carbon Dioxide Anion Gap BUN Creatinine Est Cr Clr Drug Dosing Est GFR ( Amer) Est GFR (Non-Af Amer) BUN/Creatinine Ratio Glucose Calcium Total Bilirubin AST ALT Alkaline Phosphatase Troponin I High Sens Total Protein Albumin Globulin Albumin/Globulin Ratio Amylase Lipase TSH 1.455 Urine Color Urine Appearance Urine pH Ur Specific [place] Urine Protein Urine Glucose (UA) Urine Ketones Urine Blood Urine Nitrite Urine Bilirubin Urine Urobilinogen Ur Leukocyte Esterase Urine WBC (Auto) Urine RBC (Auto) U Hyaline Cast (Auto) U Epithel Cells (Auto) Urine Bacteria (Auto) SARS-CoV-2, RNA, NAAT POSITIVE A* 11/25/22 09:54 WBC RBC Hgb Hct MCV MCH MCHC RDW Std Deviation RDW Coeff of Marli Plt Count MPV Immature Gran % (Auto) Neut % (Auto) Lymph % (Auto) [place] % (Auto) Eos % (Auto) Baso % (Auto) Neut # (Auto) Lymph # (Auto) [place] # (Auto) Eos # (Auto) Baso # (Auto) Immature Gran # (Auto) PT INR APTT 52.7 H* PTT Ratio 1.9 Sodium Potassium Chloride Carbon Dioxide Anion Gap BUN Creatinine Est Cr Clr Drug Dosing Est GFR ( Amer) Est GFR (Non-Af Amer) BUN/Creatinine Ratio Glucose Calcium Total Bilirubin AST ALT Alkaline Phosphatase Troponin I High Sens Total Protein Albumin Globulin Albumin/Globulin Ratio Amylase Lipase TSH Urine Color Urine Appearance Urine pH Ur Specific [place] Urine Protein Urine Glucose (UA) Urine Ketones Urine Blood Urine Nitrite Urine Bilirubin Urine Urobilinogen Ur Leukocyte Esterase Urine WBC (Auto) Urine RBC (Auto) U Hyaline Cast (Auto) U Epithel Cells (Auto) Urine Bacteria (Auto) SARS-CoV-2, RNA, NAAT PG Care Time/CCT Total # of Minutes Spent Total Time Spent with Patient: Total time spent is greater than 50% in coordination of care (as documented) at patient's floor/unit and/or counseling patient: Coding Level of Care Code 63855 SUB INP/OBS CARE 2/35MIN Diagnoses Pulmonary embolism on right I26.99 COVID-19 U07.1 Hepatitis C B19.20 Hypertension I10 Cirrhosis K74.60 Pulmonary nodule R91.1 Hyponatremia E87.1 GERD (gastroesophageal reflux disease) K21.9 Gout M10.9
[2022-11-26] MEDS: HEPARIN SODIUM/DEXTROSE 25,000 UNITS/500 ML BAG IV SCH (00:44)
[2022-11-26] MEDS: dexAMETHasone 6 MG in SYRINGE 0 ML IV SCH (06:26)
[2022-11-26 07:46] LABS: Hematocrit (blood only) 34.9 % (42.0-52.0); Hemoglobin 12.4 g/dl (14.0-18.0); Immature Granulocytes # (auto) 0.04 K/uL (0.01-0.20); Immature Granulocytes % (auto) 0.4 %; Lymphocytes # (auto) 0.86 K/uL (1.2-3.4); Mean Corpuscular Hemoglobin 31.2 pg (25.0-34.0); Mean Corpuscular Hgb Conc 35.5 g/dL (32.0-36.0); Mean Corpuscular Volume 87.9 fL (80.0-100.0); Mean Platelet Volume 11.3 fL (9.4-12.4); Monocytes # (auto) 0.52 K/uL (0.11-0.59); Monocytes % (auto) 5.5 %; Neutrophils # (auto) 8.09 K/uL (1.40-6.50); Neutrophils % (auto) 85.1 %; Platelet Count 169 K/uL (130-400); RDW Standard Deviation 38.8 fL (36.4-46.3); Red Blood Count 3.97 M/uL (4.70-6.10); White Blood Count 9.51 K/ul (4.8-10.8)
[2022-11-26 08:09] LABS: INR 1.1 (0.9-1.1); Partial Thromboplastin Ratio 1.3; Partial Thromboplastin Time 36.2 Seconds (21.0-31.0)
[2022-11-26] MEDS ORDERED: HEPARIN SOD (PORCINE) 1000 UNIT/ML IV ONE (08:22)
[2022-11-26 08:42] LABS: Albumin Globulin Ratio 0.9 (0.9-2); Albumin Level 3.7 gm/dl (3.4-5.0); BUN Creatinine Ratio 23.8 (10-20); Bilirubin,Total 0.6 mg/dl (0.2-1.0); Calcium 9.2 mg/dl (8.5-10.1); Creatinine Clr Calc Pharmacy 67.8 ml/min; Est GFR (African American) 56.4 ml/min; Est GFR (Non-African American) 48.7 ml/min; Globulin 4.2 gm/dl (2.5-4.0); Magnesium 1.8 mg/dl (1.7-2.4); Potassium 4.4 mmol/L (3.5-5.1); Total Protein 7.9 gm/dl (6.0-8.3)
[2022-11-26] MEDS: SPIRONOLACTONE 100 MG TAB PO SCH (08:54)
[2022-11-26] MEDS: allopurinoL 300 MG TAB PO SCH (08:54)
[2022-11-26] MEDS: PANTOprazole 40 MG TAB PO SCH (08:54)
[2022-11-26] MEDS: carvediloL 6.25 MG TAB PO SCH ×2 (08:55→20:29)
[2022-11-26] MEDS ORDERED: HEPARIN IV BOLUS 4,000 UNITS in SYRINGE 0 ML IV ONE (09:00)
[2022-11-26 15:14] LABS: Partial Thromboplastin Ratio 1.8
[2022-11-26 15:31] LABS: Partial Thromboplastin Time 48.3 Seconds (21.0-31.0)
[2022-11-26] MEDS: APIXABAN 5 MG TABLET PO SCH ×2 (16:38→23:48)
--- NOTE | 2022-11-26 21:16 | Hospitalist Progress Note ---
Date of Service November 26, 2022 Assessment & Plan (1) Pulmonary embolism on right: Plan: with possible RLL pulmonary infarction. suspect hypercoagulable state from COVID-19 infection +/- genetic/inherited predisposition given strong family history of VTE. genetic w/u has been dispatched by admitting MD. CT chest/abd/pelvis without signs of malignancy. Does have cirrhosis from prior HepC infection which can cause hypercoagulable state as well. Stop heparin infusion. Transition to Eliquis 10mg PO BID x 7 days, then 5mg BID thereafter. Minimum 3 months of Rx, leaning towards 6 months. Should f/u with heme if hypercoagulable w/u is +. Dopplers legs noted to be negative. (2) COVID-19: Plan: Suspect he is about 2 weeks into his illness. The pro-inflammatory state from COVID often will cause VTE about 10-14+ days into the illness; thus, time course fits for his presentation. Thus far no evidence of pneumonia. No other complications. Defer on Remdesivir or Steroid therapy. Cont airborne precautions for now. (3) Hepatitis C: Plan: With resulting cirrhosis. Compensated on exam and radiographically. Cont aldactone. (4) Hypertension: Plan: Cont coreg Cont aldactone (5) Cirrhosis: Plan: Compensated Cont aldactone (6) Pulmonary nodule: Plan: 5mm RML nodule will need surveillance post discharge (7) Hyponatremia: Plan: likely 2nd to aldactone recheck BMP am Na 132 today and stable (8) GERD (gastroesophageal reflux disease): Plan: cont PPI (9) Gout: Plan: cont allopurinol prophylaxis Plan observe overnight at his request labs am d/c home tomorrow w/ eliquis Admission and Anticipated Discharge Date Admission Date: November 25, 2022 Subjective tele overnight wnl patient states right costal margin pain is improved no pleuritic pain no dyspnea fatigue improved wants to be watched overnight on Eliquis to make sure he has no issues with the new med [facility] 0 [facility] Review of Systems Review of Systems: gen - no fevers/chills; eating well cv - no cp, no orthopnea, no edema pulm - no cough, no dyspnea, no CHASE GI - no N/V/D; +stools Physical Exam Physical Exam: gen - obese, NAD, looks good mouth - MMM neck - no JVD heart - RRR, s1 s2, no murmur lungs - CTA b/l, no rales abd - tenderness right flank/RUQ resolved; BS+, soft, no ascites, no HSM ext - no edema, pulses 2+ b/l psych - a/o x 3 Results & Data Results & Data ([facility]) Vital Signs (Past 12 Hours) Vital Signs Temp Pulse Pulse Resp BP Pulse Ox O2 Del Method 11/26/22 19:48 36.5 C 60 18 133/69 96 Room Air 11/26/22 15:05 61 11/26/22 14:43 36.3 C L 60 20 133/74 96 Room Air 11/26/22 11:35 36.2 C L 57 L 20 141/80 H 96 Room Air Laboratory Results Laboratory Results - last 24 hr 11/25/22 11/26/22 11/26/22 02:38 07:05 07:05 WBC 9.51 RBC 3.97 L Hgb 12.4 L Hct 34.9 L MCV 87.9 MCH 31.2 MCHC 35.5 RDW Std Deviation 38.8 RDW Coeff of Marli 12.0 Plt Count 169 MPV 11.3 Immature Gran % (Auto) 0.4 Neut % (Auto) 85.1 Lymph % (Auto) 9.0 [place] % (Auto) 5.5 Eos % (Auto) 0.0 Baso % (Auto) 0.0 Neut # (Auto) 8.09 H Lymph # (Auto) 0.86 L [place] # (Auto) 0.52 Eos # (Auto) 0.00 Baso # (Auto) 0.00 Immature Gran # (Auto) 0.04 PT 12.0 INR 1.1 APTT 36.2 H PTT Ratio 1.3 Sodium Potassium Chloride Carbon Dioxide Anion Gap BUN Creatinine Est Cr Clr Drug Dosing Est GFR ( Amer) Est GFR (Non-Af Amer) BUN/Creatinine Ratio Glucose Calcium Magnesium Total Bilirubin AST ALT Alkaline Phosphatase Total Protein Albumin Globulin Albumin/Globulin Ratio Homocysteine 16.5 H 11/26/22 11/26/22 07:05 14:22 WBC RBC Hgb Hct MCV MCH MCHC RDW Std Deviation RDW Coeff of Marli Plt Count MPV Immature Gran % (Auto) Neut % (Auto) Lymph % (Auto) [place] % (Auto) Eos % (Auto) Baso % (Auto) Neut # (Auto) Lymph # (Auto) [place] # (Auto) Eos # (Auto) Baso # (Auto) Immature Gran # (Auto) PT INR APTT 48.3 H* PTT Ratio 1.8 Sodium 132 L Potassium 4.4 Chloride 101 Carbon Dioxide 23 Anion Gap 8 BUN 35 H Creatinine 1.47 H Est Cr Clr Drug Dosing 67.8 Est GFR ( Amer) 56.4 Est GFR (Non-Af Amer) 48.7 BUN/Creatinine Ratio 23.8 H Glucose 135 H Calcium 9.2 Magnesium 1.8 Total Bilirubin 0.6 D AST 16 ALT 17 Alkaline Phosphatase 58 Total Protein 7.9 Albumin 3.7 Globulin 4.2 H Albumin/Globulin Ratio 0.9 Homocysteine PG Care Time/CCT Total # of Minutes Spent Total Time Spent with Patient: Total time spent is greater than 50% in coordination of care (as documented) at patient's floor/unit and/or counseling patient: Coding Level of Care Code 50276 SUB INP/OBS CARE 2/35MIN Diagnoses Pulmonary embolism on right I26.99 COVID-19 U07.1 Hepatitis C B19.20 Hypertension I10 Cirrhosis K74.60 Pulmonary nodule R91.1 Hyponatremia E87.1 GERD (gastroesophageal reflux disease) K21.9 Gout M10.9
[2022-11-27] MEDS: APIXABAN 5 MG TABLET PO SCH (07:57)
[2022-11-27] MEDS: allopurinoL 300 MG TAB PO SCH (07:57)
[2022-11-27] MEDS: PANTOprazole 40 MG TAB PO SCH (07:58)
[2022-11-27] MEDS: carvediloL 6.25 MG TAB PO SCH (07:58)
[2022-11-27] MEDS: SPIRONOLACTONE 100 MG TAB PO SCH (07:58)
[2022-11-27 08:11] LABS: Basophils # (auto) 0.01 K/uL (0-0.2); Basophils % (auto) 0.1 %; Hemoglobin 13.2 g/dl (14.0-18.0); Immature Granulocytes # (auto) 0.05 K/uL (0.01-0.20); Immature Granulocytes % (auto) 0.5 %; Lymphocytes % (auto) 8.5 %; Mean Corpuscular Hemoglobin 30.7 pg (25.0-34.0); Mean Corpuscular Hgb Conc 34.7 g/dL (32.0-36.0); Mean Corpuscular Volume 88.4 fL (80.0-100.0); Mean Platelet Volume 11.3 fL (9.4-12.4); Monocytes # (auto) 0.75 K/uL (0.11-0.59); Monocytes % (auto) 7.1 %; Neutrophils # (auto) 8.89 K/uL (1.40-6.50); Neutrophils % (auto) 83.8 %; Platelet Count 217 K/uL (130-400); RDW Coefficient of Variation 12.1 % (11.5-14.5); RDW Standard Deviation 39.5 fL (36.4-46.3)
[2022-11-27 08:16] LABS: Albumin Globulin Ratio 0.9 (0.9-2); Bilirubin,Total 0.6 mg/dl (0.2-1.0); Calcium 9.5 mg/dl (8.5-10.1); Est GFR (African American) 52.5 ml/min; Est GFR (Non-African American) 45.3 ml/min; Globulin 4.5 gm/dl (2.5-4.0); Magnesium 1.9 mg/dl (1.7-2.4); Potassium 4.5 mmol/L (3.5-5.1); Total Protein 8.5 gm/dl (6.0-8.3)
[2022-11-27] MEDS ORDERED: PYRIDOXINE HCL 50 MG TAB PO SCH (09:00)
[2022-11-27] MEDS ORDERED: FOLIC ACID 1 MG TAB PO SCH (09:00)
[2022-11-27] MEDS ORDERED: CYANOCOBALAMIN (B-12) 500 MCG TABLET PO SCH (09:00)
--- NOTE | 2022-11-27 14:47 | Discharge Summary ---
Date of Service date of admission - November 25, 2022 date of discharge - November 27, 2022 Admission HPI Per Admitting Provider The patient is a 67-year-old male with a past medical history including hepatitis C, vitamin D deficiency, gout, chronic GERD, hypertension, CKD stage III, hyponatremia, bradycardia, hypertension, history of hypertensive crisis, gout and cirrhosis. He presents to the emergency department with generalized fatigue of several days duration, and more acute onset of right lower chest pain. Significant work-up in the emergency department include the following: CT angiography PE protocol showed a right lower lobe pulmonary embolism, right middle lobe pulmonary nodule 0.5 cm and a few scattered infiltrates bilaterally. CT abdomen and pelvis was negative Significant laboratories: Sodium 132, creatinine 1.41. Patient is COVID-19 positive. Principal Diagnosis 1. right-sided pulmonary emboli 2. RLL pulmonary infarction 3. COVID-19 infection 4. cirrhosis 5. hyponatremia Discharge Exam gen - obese, NAD mouth - MMM neck - no JVD heart - RRR, s1 s2, no murmur lungs - CTA b/l, no rales abd - tenderness right flank/RUQ resolved; BS+, soft, no ascites, no HSM ext - no edema, pulses 2+ b/l psych - a/o x 3 Discharge Data Allergies Allergy/AdvReac Type Severity Reaction Status Date / Time hydralazine AdvReac Severe Unresponsiv Verified 11/24/22 23:33 e codeine AdvReac Intermediate "MAKES ME Verified 11/24/22 23:33 GOOFEY" gabapentin AdvReac Unknown Unknown Verified 11/24/22 23:33 Ordered Studies Abdomen/Pelvis CT 11/24/22 22:31 CT abd pelvis IV con only CLINICAL HISTORY: right side abd pain TECHNIQUE: Helical axial images of the abdomen and pelvis were obtained and displayed. Automated dose lowering techniques and/or adjustment according to patient size were utilized for this exam. This exam was performed with intravenous contrast. CT DOSE: 1523.32 mGy.cm COMPARISON: Comparison is made to CT abdomen pelvis 07/13/2019 FINDINGS: Lower chest: Bibasilar atelectasis versus scarring is seen. Liver: Nodular contour of the liver is seen compatible with cirrhosis. Gallbladder and biliary tree: Cholelithiasis is seen without evidence of cholecystitis. No intra- or extrahepatic biliary ductal dilation. Pancreas: Unremarkable, no focal lesions. Spleen: Unremarkable. Adrenals: Unremarkable. Kidneys and ureters: Subcentimeter hypodensities are too small to characterize. Bladder: Unremarkable. Reproductive organs: Unremarkable. Bowel: The appendix is normal. Lymph nodes Retroperitoneal: Unremarkable. Pelvic: Unremarkable. Mesenteric: Unremarkable. Peritoneum: Normal. Vessels: Atherosclerotic calcifications are seen. A left splenorenal shunt is noted. Abdominal wall: Unremarkable. Bones: Degenerative changes in the visualized spine. IMPRESSION: No acute abnormalities are seen. Cirrhosis and vascular changes as above. ACT 112: Negative or not required by law. Electronically signed by: Dick Dai M.D. 11/25/2022 9:05 AM Chest X-Ray 11/24/22 23:29 XR chest 1V portable CLINICAL HISTORY: atypical ruq abd pain TECHNIQUE: Single frontal radiograph of the chest was obtained. Comparison: Prior chest radiograph 12/08/2019 FINDINGS: No lines and tubes are seen. Calcified aortic knob is seen. The lungs are clear. No evidence of pleural effusion or pneumothorax. IMPRESSION: No acute chest disease. ACT 112: Negative or not required by law. Electronically signed by: Dick Dai M.D. 11/25/2022 7:05 AM Chest CTA 11/24/22 23:48 CT angio chest PE protocol CLINICAL HISTORY: covid +, atypical pain TECHNIQUE: Multidetector row helical CT of the chest was performed with angiographic protocol. Coronal and sagittal reformations were obtained. Coronal and sagittal MIPS were obtained from the axial data set and were submitted for review. Automated dose lowering techniques and/or adjustment according to patient size were utilized for this exam. CT DOSE: 837.94 mGy.cm Comparison: Comparison is made to CT thorax 10/02/2016 FINDINGS: Lungs and pleura: Atelectasis is seen with suggestion of tiny right lower lobe consolidation. There is a 5 mm in the right middle lobe (series 4 image 125). Calcified granulomata are also seen. Heart and pericardium: Heart size is normal. No pericardial effusion. Vessels: Moderate atherosclerotic changes in the aorta and coronary arteries. There is a right lower lobe pulmonary embolus extending into the sublingual branches. Mediastinum and odette: Subcentimeter lymph nodes are seen. Chest wall and lower neck: Unremarkable. Abdomen: Unremarkable. Bones: Degenerative changes in the thoracic spine. IMPRESSION: Right lower lobe pulmonary embolus is seen with possible developing pulmonary infarct. No evidence of right heart strain. ACT 112: Negative or not required by law. Electronically signed by: Dick Dai M.D. 11/25/2022 8:08 AM Venous Doppler Study 11/25/22 02:06 BILATERAL LOWER EXTREMITY VENOUS DOPPLER HISTORY: Acute pain and swelling of the lower legs PE COMPARISON STUDY: 12/13/2016 FINDINGS: There is normal compressibility, flow, and augmentation within the bilateral lower extremity deep venous systems. IMPRESSION: No DVT within the right or left lower extremity. ACT 112: Negative or not required by law. Electronically signed by: Angel Massey M.D. 11/25/2022 6:37 AM Hospital Course (1) Pulmonary embolism on right: With possible RLL pulmonary infarction. Suspect hypercoagulable state from COVID-19 infection +/- genetic/inherited predisposition given strong family history of VTE. Genetic w/u has been dispatched by admitting physician with all results pending except homocysteine level (see below). CT chest/abd/pelvis without signs of malignancy. Does have cirrhosis from prior HepC infection which can cause hypercoagulable s hernandez as well. Treated initially with heparin infusion. Then transitioned to Eliquis 10mg PO BID x 7 days, then 5mg BID thereafter. Minimum 3 months of Rx, could need longer course. Should f/u with hematology if hypercoagulable work-up is positive. He was counseled NOT to take NSAIDs while taking Eliquis. Venous Dopplers of b/l legs negative for DVT. Right lower costal pain was resolved by discharge. That pain was likely due to his pulmonary infarction. (2) COVID-19: Suspect he was about 2 weeks into his illness at time of admission. He stated he became very fatigued on November 13. The pro-inflammatory state from COVID often will cause VTE about 10-14+ days into the illness; thus, time course fits for his presentation. Patient never had evidence of pneumonia. No other complications beyond the PEs. Remdesivir and Dexamethasone were deferred while here. His fatigue was significantly better by time of discharge. (3) Homocysteinemia: level = 16.5 (normal <11.4) homocysteinemia is a risk factor for arterial and venous thrombosis in light of VTE advised treatment at discharge recommended the following - * vitamin B6 50mg daily * vitamin B12 1000mcg daily * folic acid 1mg daily he should have a follow-up level in a few months to ensure normalization (4) Hepatitis C: With resulting cirrhosis. Compensated on exam and radiographically. Cont aldactone. Cont coreg. (5) Hypertension: Cont coreg Cont aldactone BPs controlled (6) Cirrhosis: Compensated while here. Cont coreg and aldactone. (7) Pulmonary nodule: 5mm RML nodule will need surveillance post discharge (8) Hyponatremia: likely 2nd to aldactone ranged 132-135 while here (9) GERD (gastroesophageal reflux disease): cont PPI (10) Gout: cont allopurinol prophylaxis Total Time Total Time Spent Total Time Spent (In Minutes): 40 Discharge Plan Discharge Items Patient Disposition: Home - Self-Care Reason For Visit: COVID 19+, PULMONARY EMBOLISM Discharge Diagnosis: 1. right-sided pulmonary emboli 2. likely right-sided pulmonary infarction 3. COVID-19 infection - likely resolved 4. cirrhosis 5. high homocysteine levels (your level = 16.5, normal <11.4) 6. 5mm pulmonary nodule of right lung -- follow-up needed for this Activity: As commented below Activity Comment: gradually increase your activities over the next 7-10 days Non-emergency contact: Primary Care Provider Call non-emergency contact if: you have any medication questions and your symptoms worsen Follow-up/Referrals: [facility],Hospital [Non-Staff] - (please see the [facility] office within 1 week) Diet: Heart Healthy Addtl Attending Provider Instructions: Mr Cassidy, You were hospitalized for pulmonary emboli blood clots of the right lung. This was the cause of your right sided pain. You also had evidence of "pulmonary infarction" which is when the lung tissue gets hurt/damaged as a result of the blood clots. Your body will naturally dissolve the clots over time, and the lung tissue will heal over time as well. You may notice over the next few weeks that if you try to do too much activity you may be a little short of breath. This is due to the blood clots. You have been started on Eliquis blood thinner medication. Take as follows - * 10mg (2 tablets of 5mg) twice daily x 7 days - THEN - * 5mg twice daily thereafter The biggest side effect of any blood thinner is bleeding (see separate section regarding blood thinners). You will likely be on the blood thinner at least 3 months but it could be longer depending on your genetic tests that are currently pending. The cause of your blood clots is likely due to recent COVID infection. COVID virus can "thicken" the blood lending itself to blood clot formation. Cirrhosis is also a risk factor for clots. We also found that you have high levels of homocysteine (see [facility] handout) which can increase your risk of blood clots. Again we are waiting on labs to see if you inherited a gene from your parents that increases the risk of clots. For the high homocysteine levels take the following - * vitamin B12 1000mcg daily * folic acid 1mg daily * vitamin B6 50mg daily You will need a repeat homocysteine level in a few months. You had mentioned to us you had been fatigued since mid October. This is likely when your COVID illness began. Thus, it is unlikely that you are contagious to others at this time and isolation is not needed. Finally, incidentally we saw a small pulmonary nodule in your right lung. This will need follow-up in 6-12months with a repeat scan. The [facility] can coordinate this for you. Most nodules are benign/not harmful. Follow-up - see the [facility] clinic within 1 week Return to [facility] if - * you have fevers over 100 degrees * you have worsening chest pain or shortness of breath * you have bleeding from any location * any other concerns It was our pleasure to care for you! Addtl Clinical Therapist Provider Instructions: Blood Thinner Medication Instructions: Your pulmonary embolus blood clot condition is typically treated with an anticoagulant ("blood thinners"). Anticoagulants will thin your blood to help prevent new clots. Your blood thinner is "ELIQUIS." * You should take your medication exactly as directed. * Never skip a dose. * Never take a double dose. If you miss a dose, take it as soon as you remember. Call your Primary Care doctor if you experience any of the following: * Swelling or Pain in your leg * Sudden, continuous pain deep in a muscle * Pain that worsens when you are active or when you stand still for a long time * Chest Pain * Sudden Shortness of Breath * Rapid or pounding heart beat * Fainting * Dizziness * Cough with blood or bloody sputum * Sweating more than normal * Bruises * Heavy or uncontrolled bleeding * Blood in your urine, stool or vomit * Black or tarry stools * Heavy nose bleeding Caring for Your Self at Home: * Avoid sitting, standing or lying down for long periods without moving your legs and feet * When traveling by car, stop to get out and move around at least once every 3 hours * On long airplane, train or bus rides, get up and move around when possible * If you can't get up, wiggle your toes and tighten your calves to keep your blood moving Pending Studies at Discharge: Yes Studies:: Genetic labs to rule out inherited causes of blood clots Stand-Alone Forms: My [facility] [place], Smoking Cessation Medications and DC Order Prescriptions: New Eliquis 5 mg tablet 5 mg PO .bid as directed Qty: 60 0RF Rx Instructions: take 2 tabs po BID x 7 days, then 1 tab PO BID thereafter. pyridoxine (vitamin B6) 50 mg Tablet 50 mg PO QAM Qty: 90 1RF folic acid 1 mg Tablet 1 mg PO QAM Qty: 90 1RF cyanocobalamin (vitamin B-12) 1,000 mcg capsule 1,000 mcg PO DAILY Qty: 90 1RF Continued spironolactone 100 mg tablet 100 mg PO QAM allopurinol 300 mg Tablet 300 mg PO DAILY carvedilol [Coreg] 12.5 mg Tablet 6.25 mg PO BID hydrophilic Ointment 1 applic TOPICAL DAILY PRN (Reason: Skin Irritation) Changed pantoprazole 40 mg Tablet,Delayed Release (Dr/Ec) 40 mg PO DAILY Qty: 1 0RF Rx Instructions: PT UNSURE OF STRENGTH, UNABLE TO VERIFY. Discontinued ibuprofen [Advil] 200 mg Tablet 400 mg PO DAILY PRN (Reason: Pain) Discharge Orders: Discharge Order (Routine); Ordered 11/27/22 Ordered By: Pancho Whyte Admission Data Admit Date/Time: 11/25/22 02:03 Attending Provider: Pancho Whyte Admit Provider: Homar Gill Primary Care Provider: PCP,NO Other Providers: Homar Gill ; [facility] Other Interventions: Discharge Summary Assessment (RN) Last Done: 11/27/22 14:52 Coding Level of Care Code 00854 INP/OBS DISCH >30 MIN Diagnoses Pulmonary embolism on right I26.99 COVID-19 U07.1 Homocysteinemia R79.83 Hepatitis C B19.20 Hypertension I10 Cirrhosis K74.60 Pulmonary nodule R91.1 Hyponatremia E87.1 GERD (gastroesophageal reflux disease) K21.9 Gout M10.9
[2022-11-30 20:12] LABS: Factor 5 Mutation NEGATIVE
[2022-12-01 15:47] LABS: Anti Cardiolipin Ab IgG <2.0 GPL-U/mL; Anti Cardiolipin Ab IgM <2.0 MPL-U/mL; Anti-Thrombin III Activity 90 % normal (80-135); B2 Glycoprotein IgG <2.0 U/mL (<20.0); B2 Glycoprotein IgM <2.0 U/mL (<20.0); PTT LA Screen 38 sec (<=40); Protein S Functional(Activity) 53 % normal (70-150)
--- NOTE | 2022-12-04 09:30 | Coding Query ---
CODING QUERY To promote full compliance with coding requirements relating to patient care, provider participation is requested in all cases of food and beverage assistant manager uncertainty. Please assist us with the question(s) below: Coding Question(s): There is documentation of COVID-19 Infection in the record, starting on the ER and documentation as on H&P that Patient is COVID-19 positive, and the Progress Notes on 11/25 and 11/26 document, " COVID-19: Plan: Suspect he is about 2 weeks into his illness. The pro-inflammatory state from COVID often will cause VTE about 10-14+ days into the illness; thus, time course fits for his presentation. Thus far no evidence of pneumonia. No other complications. Defer on Remdesivir or Steroid therapy. Can stop dexamethasone. Cont airborne precautions for now", and the Discharge Summary documents COVID-19 infection in the Principal Diagnosis area, however, down lower, under Discharge Plan, Discharge Diagnosis, there is documentation, "COVID-19 infection - likely resolved", and, under the Addtl Attending Provider Instructions, "The cause of your blood clots is likely due to recent COVID infection", and, "You had mentioned to us you had been fatigued since mid October. This is likely when your COVID illness began. Thus, it is unlikely that you are contagious to others at this time and isolation is not needed", It is not clear if the patient had Covid-19 Infection on admission that had resolved by Discharge, or if the patient's Covid-19 Infection had resolved before admission. Please specify below: ( x ) Patient had COVID-19 Infection on admission that resolved by Discharge ( ) Patient's COVID-19 Infection had resolved before admission ( ) Other: Please Specify Physician's Response(s): Thank you Roslyn Harp Principal Diagnosis: "that condition established after study, to be chiefly responsible for occasioning the admission of the patient to the hospital for care." Co-Existing Principal Diagnosis: "when two or more diagnoses equally meet the criteria for principal diagnosis as determined by the circumstances of admission, diagnostic work up, and/or therapy provided, and the Alphabetic Index, Tabular List, or another coding guideline does not provide sequencing direction, any one of the diagnoses may be sequenced first." "When the physician has documented what appears to be a current diagnosis in the body of the record, but has not included the diagnosis in the final diagnostic statement, the physician should be asked whether the diagnosis should be added." (Source Coding Clinic 2 QTR90. p3-4) MOHIT
== END 2022-11-27 15:24 | disposition home or self-care (01) | DRG 177 ==
LOC: ED 20:43 → 2N 11-25 02:03 → SUATTDRO 11-25 02:03 → 2N 11-25 04:16

== ENCOUNTER 2025-09-23 12:49 | Inpatient (IN) ==
--- NOTE | 2025-09-23 13:10 | Emergency Department Note ---
Impression & Plan Pain and swelling of left lower extremity, Hematoma of left lower extremity, Castellano's cyst, Ambulatory dysfunction, Hypomagnesemia, Thrombocytopenia, Anemia, Anticoagulant long-term use ED Provider Note CHIEF COMPLAINT: Knee pain and leg swelling HISTORY OF PRESENTING ILLNESS: This 70-year-old male patient presents to the emergency department for evaluation of swelling and pain to the left lower extremity. The patient states that he has had swelling to the left lower extremity for the past 2 months or more. No known injury or trauma. The patient states that he had an ultrasound done before [place] that showed he had a Castellano's cyst. The patient states that he followed up with the [facility] and they did a repeat ultrasound, but did not give him any results. The patient states that the swelling is getting progressively worse and he is having pain to the lower extremity because of the swelling. He is having difficulty ambulating because of the pain and swelling. The patient is on Eliquis for history of PE as well as cardiac stents. The patient states that Tylenol was not improving his pain so he did take some ibuprofen the past 2 days for pain with mild improvement of the pain. The patient states that he has an appt next week with the [facility], but he is still having a lot of pain and couldn't wait until Wednesday. The patient lives out of a van that he has turned into his home and has difficulty elevating his leg or ambulating appropriately within the van. The patient was seen in the ER on 08/21/2025. Venous Doppler of the left lower extremity showed no evidence for DVT. There is a 3.7 x 1.2 x 1.1 cm fluid collection in the popliteal fossa suggesting Castellano's cyst. There was also a complex fluid collection in the medial calf which is most likely a hematoma or ruptured Castellano's cyst. The patient also has subcutaneous edema of the lower leg. REVIEW OF SYSTEMS: See HPI for pertinent positives and pertinent negatives. ALLERGIES: Hydralazine, codeine, gabapentin MEDICATIONS: See below PAST MEDICAL HISTORY: See below PHYSICAL EXAM: VITALS: Vitals are noted on the nurse's note and reviewed by myself. GENERAL: Non toxic, in no acute distress, non-diaphoretic. SKIN: See musculoskeletal exam. Capillary refill <2 sec. EYES: PERRLA. EOMI. Conjunctivae without injection, sclerae without icterus. NOSE: Patent without discharge. MOUTH: Mucous membranes moist. Uvula midline. Airway patent. NECK: Supple without nuchal rigidity. HEART: Regular rate and rhythm without murmurs gallops or rubs. LUNGS: Clear to auscultation bilaterally without wheezes, rales or rhonchi. No retractions or accessory muscle use. ABDOMEN: Positive bowel sounds x 4. Normal tympanic percussion. Soft, nontender to palpation. No masses or hepatosplenomegaly. Trejo sign negative. No CVA tenderness. No guarding, rigidity, or rebound tenderness. No focal RLQ or LLQ tenderness. MUSCULOSKELETAL: The patient's left lower extremity is significantly more swollen than the right lower extremity. The majority of the swelling is posteriorly from the popliteal fossa down the back of the calf. He does have some swelling to the anterior compartments as well, but no obvious evidence for compartment syndrome at this time. The patient does have some minimal erythema and warmth to the posterior aspect of his leg in the area of the maximal edema. The patient also has a brownish area of discoloration to the anterior thigh that is not quite reticular, but similar in appearance. The patient is tender to palpation in the area of erythema, but no bony tenderness to palpation. The patient is still able to move the toes, ankle, knee, and hip of the left lower extremity, but he has been having trouble walking because of the pain and swelling. Dorsalis pedis and posterior tibial pulse 2+. Normal sensation to light and sharp touch of the left lower extremity. No obvious significant swelling, redness, or warmth of the right lower extremity. No tenderness to palpation of the right lower extremity. NEURO: Patient was alert and oriented. No focal neurological deficits. DIFFERENTIAL DIAGNOSIS: Differential diagnosis includes DVT, SVT, Castellano's cyst, CHF, peripheral edema, hematoma, abscess, compartment syndrome, vasculitis, necrotizing fasciitis, cellulitis, or others. ED COURSE AND MEDICAL DECISION MAKING: MEDICATIONS GIVEN: Tylenol 1000 mg IV. Magnesium 1 g IV. MONITOR: Continuous branch mechanic: Order was placed for continuous branch mechanic. Patient was placed on the branch mechanic and continuous pulse ox. Patient was noted to be in normal sinus rhythm at an initial rate of 64 bpm per my interpretation. INTERPRETATION OF LABS: I interpreted the labs with full lab results as below in the lab section of this note. Laboratory results pertinent to the emergent complaint are discussed in the MDM section below. The patient was advised to follow up with their PCP and/or specialist(s) for further outpatient monitoring and management of any abnormal results. INTERPRETATION OF IMAGING: Imaging studies were interpreted by myself and read by radiology as per the imaging section of this note. The patient was advised to follow up with their PCP and/or specialist(s) for further outpatient management of any non-emergent abnormal findings. CHRONIC MEDICAL/SOCIAL CONDITIONS AFFECTING CARE: On Eliquis for history of PE and cardiac stents. CONSULTATIONS: Dr. Joyce of orthopedics. On-call hospitalist. SPLINTING: The patient was placed in an Mateus wrap from the toes to groin under my direction. Neurovascular status was rechecked and intact. MDM SUMMARY: The patient was seen during a time of extreme volume and extreme acuity. The patient was initially evaluated in a sub-waiting room and then re-evaluated once they were taken back to an exam room. The patient stated that he started with swelling to the left lower extremity at least 2 months ago. He denies any known injury or trauma to the area. The patient was seen in the ER on 08/21/2025 with a venous Doppler of the left lower extremity with no evidence for DVT. The patient did have a Castellano's cyst as well as a complex fluid collection in the medial calf which is likely a hematoma or ruptured Castellano's cyst. The patient has had worsening swelling and pain to the left lower extremity since that visit. The patient states that [facility], but he did not receive results. The patient is having trouble getting around at home because of the increased pain and swelling. The patient denies any fevers, chest pain, shortness of breath, or symptoms other than the left lower extremity. On exam, the patient does have significant swelling to the left lower extremity, but no evidence for compartment syndrome. An IV lock was placed and labs were drawn. White blood cell count normal at 6.36. Hemoglobin low at 12.0. Platelet count low at 112. Coags are normal. Sodium low at 134 and BUN elevated at 30, but CMP otherwise normal. Magnesium low at 1.2 and the patient was given 1 g magnesium IV. BNP normal at 32. Venous Doppler of the left lower extremity showed no evidence for DVT. There is a 17.2 x 4.4 x 10.1 cm complex fluid collection or cystic mass extending inferiorly from the posterior knee and at the distal calf. Overlying soft tissue edema is noted. This could represent a large hematoma, abscess, or cystic soft tissue mass. CT scan of the left femur and lower extremity with IV contrast showed a large hematoma involving the medial head of the left gastroc muscle as well as a left popliteal fossa Castellano's cyst, but these are 2 separate and distinct entities per the radiology report. No bony abnormalities noted. No vascular compromise identified. The patient is on Eliquis and has had a progressively worsening hematoma without known injury or trauma. The patient lives in a [facility] van and has been having trouble ambulating and getting around at home. The patient was independently evaluated by Dr. Dumont, who agrees with my assessment and treatment plan. We feel the patient would benefit from admission for further management of his worsening hematoma on Eliquis and ambulatory dysfunction. I spoke with Dr. Joyce of orthopedics who stated that no emergent orthopedic intervention is needed at this time. He stated the patient would benefit from a trial off of his anticoagulation to help assist with resolution of the hematoma. The patient will be placed in an Mateus wrap from his toes to his groin to help with compression without being too tight. The patient will be admitted by medicine with orthopedic consultation. I spoke with the on-call hospitalist who agreed to admit the patient for further evaluation and treatment. Please refer to their dictation for further details. The patient's care was transferred in stable condition. DIAGNOSIS: Left lower extremity swelling and pain likely secondary to expanding hematoma as well as Castellano's cyst Ambulatory dysfunction Anemia Thrombocytopenia Hypomagnesemia Long-term use of anticoagulant Past Med/Surg History Problem List (Updated 09/23/25 @ 20:36 by Shaneka Cunningham PA-C) Anticoagulant long-term use (Acute) Anemia (Acute) Thrombocytopenia (Acute) Hypomagnesemia (Acute) Ambulatory dysfunction (Acute) Castellano's cyst (Acute) Hematoma of left lower extremity (Acute) Pain and swelling of left lower extremity (Acute) CHASE (dyspnea on exertion) Homocysteinemia Neck pain (Chronic) DVT prophylaxis RENÉE (acute kidney injury) (Acute) Acute hyperkalemia (Acute) Bradycardia (Acute) Dizziness (Acute) Acute hyponatremia (Acute) Hyperkalemia ARF (acute renal failure) Hypertension, poor control (Acute) Headache (Acute) Hypertensive urgency, malignant (Acute 11/16/13) FERNANDO (headache) (Acute) Hypertensive crisis (Acute) Foot pain (Acute) Elevated uric acid in blood (Acute) Gout of right foot (Acute) Medical History Pulmonary nodule Pulmonary embolism on right COVID-19 Hepatitis C Vitamin D deficiency Gout Chronic GERD Chronic kidney disease, stage III (moderate) Hyponatremia No significant past medical history Cirrhosis GERD (gastroesophageal reflux disease) Hypertension Family History Other No significant family history Social History Smoking Status: Never smoker Second Hand Exposure: No; Do You Dip or Chew Tobacco: No; Hx Alcohol Use: Yes Hx Substance Use: No Preferred Language: Albanian Communication Ability: Effective Promotions Executive Required: No Beliefs That Will Affect Care: None Current Living Situation: Alone Feels Safe at Home: Yes Assistive Devices: Glasses Allergies Allergies Allergy/AdvReac Type Severity Reaction Status Date / Time hydralazine AdvReac Severe Unresponsiv Verified 09/23/25 20:06 e codeine AdvReac Intermediate "MAKES ME Verified 09/23/25 20:06 GOOFEY" gabapentin AdvReac Unknown "felt Verified 09/23/25 20:06 goofey" Home Meds Home Medications Medication Instructions Recorded Confirmed allopurinol 300 mg tablet 300 mg PO DAILY 07/12/19 09/23/25 spironolactone 100 mg tablet 100 mg PO QAM 07/12/19 09/23/25 carvedilol 12.5 mg tablet (Coreg) 6.25 mg PO BID 12/08/19 09/23/25 apixaban 5 mg tablet (Eliquis) 5 mg PO BID 09/23/25 09/23/25 clopidogrel 75 mg tablet (Plavix) 75 mg PO DAILY 09/23/25 09/23/25 cyanocobalamin (vitamin B-12) 100 200 mcg PO DAILY 09/23/25 09/23/25 mcg tablet (Vitamin B-12) magnesium gluconate 500 mg tablet 2,000 mg PO TID 09/23/25 09/23/25 pantoprazole 20 mg tablet,delayed 20 mg PO DAILY 09/23/25 09/23/25 release polyethylene glycol 3350 17 17 g PO DAILY PRN Constipation 09/23/25 09/23/25 gram/dose oral powder (Miralax) pyridoxine (vitamin B6) 50 mg 50 mg PO DAILY 09/23/25 09/23/25 tablet rosuvastatin 40 mg tablet 40 mg PO HS 09/23/25 09/23/25 semaglutide (weight loss) 2.4 2.4 mg subcut WK 09/23/25 09/23/25 mg/0.75 mL subcutaneous pen injector Previous Rx's Medication Instructions Recorded folic acid 1 mg tablet 1 mg PO QAM #90 tabs 11/27/22 Results & Data (ED) Vital Signs Vital Signs - 24 hr 09/23/25 12:54 09/23/25 16:59 09/23/25 18:26 Temperature 36.4 C L Temperature Source Temporal Artery Scan Pulse Rate 86 Pulse Rate [Finger] 57 L 59 L Pulse Rhythm [Finger] Regular Pulse Strength [Finger] Normal Respiratory Rate 19 21 19 Respiratory Effort / Characteristics Non-Labored Spontaneous Non-Labored Spontaneous Respiratory Depth Normal Normal Respiratory Pattern Regular Regular Blood Pressure 136/78 Blood Pressure [Right Arm] 146/58 H 125/60 Blood Pressure Mean 97 Blood Pressure Mean [Right Arm] 87 81 Blood Pressure Position [Right Arm] Lying Sitting Pulse Oximetry 98 98 99 Oxygen Delivery Method Room Air Room Air Room Air Sepsis Recent Fever Within 48 Hours No Sepsis New/Unexplained Change in Mental Status N/A Sepsis Action Taken by Nursing No Action Required 09/23/25 20:08 Temperature Temperature Source Pulse Rate Pulse Rate [Finger] 58 L Pulse Rhythm [Finger] Pulse Strength [Finger] Respiratory Rate 18 Respiratory Effort / Characteristics Non-Labored Spontaneous Respiratory Depth Normal Respiratory Pattern Regular Blood Pressure Blood Pressure [Right Arm] 143/69 H Blood Pressure Mean Blood Pressure Mean [Right Arm] 93 Blood Pressure Position [Right Arm] Pulse Oximetry 100 Oxygen Delivery Method Room Air Sepsis Recent Fever Within 48 Hours Sepsis New/Unexplained Change in Mental Status Sepsis Action Taken by Nursing Laboratory Data 09/23/25 13:48 09/23/25 13:48 Lab Results 09/23/25 Range/Units 13:48 WBC 6.36 (4.8-10.8) K/ul RBC 3.77 L (4.70-6.10) M/uL Hgb 12.0 L (14.0-18.0) g/dL Hct 35.7 L (42.0-52.0) % MCV 94.7 (80.0-100.0) fL MCH 31.8 (25.0-34.0) pg MCHC 33.6 (32.0-36.0) g/dL RDW Std Deviation 44.5 (36.4-46.3) fL RDW Coeff of Marli 12.9 (11.5-14.5) % Plt Count 112 L (130-400) K/uL MPV 11.4 (9.4-12.4) fL Immature Gran % (Auto) 0.3 % Neut % (Auto) 67.4 % Lymph % (Auto) 18.9 % White % (Auto) 9.3 % Eos % (Auto) 3.5 % Baso % (Auto) 0.6 % Neut # (Auto) 4.29 (1.40-6.50) K/uL Lymph # (Auto) 1.20 (1.20-3.40) K/uL White # (Auto) 0.59 (0.11-0.59) K/uL Eos # (Auto) 0.22 (0.00-0.50) K/uL Baso # (Auto) 0.04 (0.00-0.20) K/uL Immature Gran # (Auto) 0.02 (0.01-0.20) K/uL PT 11.9 (9.0-12.0) Seconds INR 1.1 (0.9-1.1) APTT 28 (21-31) Seconds PTT Ratio 1.0 Sodium 134 L (136-145) mmol/L Potassium 5.1 (3.5-5.1) mmol/L Chloride 102 (98-107) mmol/L Carbon Dioxide 24 (21-32) mmol/L Anion Gap 8 (3-11) BUN 30 H (6-23) mg/dl Creatinine 1.17 (0.6-1.4) mg/dl Est Cr Clr Drug Dosing 77.2 ml/min eGFR 67.06 BUN/Creatinine Ratio 25.6 H (10-20) Glucose 87 (70-99(Fasting)) mg/dl Calcium 9.9 (8.6-10.3) mg/dl Magnesium 1.2 L (1.7-2.4) mg/dl Total Bilirubin 0.7 (0.2-1.0) mg/dl AST 25 (13-39) U/L ALT 11 (7-52) U/L Alkaline Phosphatase 60 (34-104) U/L B-Natriuretic Peptide 32 (0-100) pg/ml Total Protein 7.7 (6.0-8.3) gm/dl Albumin 4.2 (3.4-5.0) gm/dl Globulin 3.5 (2.5-4.0) gm/dl Albumin/Globulin Ratio 1.2 (0.9-2) Administered Medications Discontinued Medications Acetaminophen (Ofirmev) 1,000 mg in 100 mls @ 400 mls/hr IV NOW STA Stop: 09/23/25 13:40 Last Infusion: 09/23/25 14:19 Dose: Infused Documented By: Admin: 09/23/25 13:44 Dose: 400 mls/hr Documented By: ALLEN Magnesium Sulfate/Dextrose (Magnesium Sulfate / D5w) 1 gm in 100 mls @ 100 mls/hr IV NOW STA Stop: 09/23/25 15:52 Last Infusion: 09/23/25 16:47 Dose: Infused Documented By: Admin: 09/23/25 15:36 Dose: 100 mls/hr Documented By: SERGIO Ioversol (Optiray 320 100ml) 93 ml IV ONCE ONE Stop: 09/23/25 16:40 Last Admin: 09/23/25 16:39 Dose: 93 ml Documented By: EDK Imaging Data Radiologist's Impression: Chest X-Ray 09/23/25 13:26 EXAM: Radiograph of the Chest 1 View INDICATION: Leg swelling. TECHNIQUE: Frontal view of the chest. COMPARISON: No relevant prior studies available. FINDINGS: Lungs and pleural spaces: No consolidation or pulmonary edema. No pleural effusion or pneumothorax. Heart: Shape and configuration within normal limits allowing for technique. Mediastinum: Normal contour. Bones/joints: Degenerative changes noted throughout the spine. No acute osseous abnormality seen. Soft tissues: No abnormality noted. No radiopaque foreign body noted. Upper abdomen: No abnormality noted. IMPRESSION: No acute cardiopulmonary disease. ACT 112: N/A Electronically signed by Alisa Noe 09-23-2025 2:35 PM Venous Doppler Study 09/23/25 13:26 HISTORY: Left lower extremity pain and swelling. TECHNIQUE: Left lower extremity venous Doppler evaluation for DVT. Grayscale, color Doppler, and spectral Doppler imaging was utilized. COMPARISON: None. FINDINGS: The left common femoral vein and greater saphenous junction appear compressible and color Doppler patent. The femoral vein and proximal deep femoral vein appear compressible and color Doppler patent. The popliteal and proximal calf veins appear color Doppler patent and compressible. Respiratory variation and augmentation is noted. 17.2 x 4.4 x 10.1 cm complex fluid collection or cystic mass extends from the posterior knee to the distal calf. This has no internal color Doppler flow. IMPRESSION: * No evidence of left lower extremity DVT. * 17.2 x 4.4 x 10.1 cm complex fluid collection or cystic mass extending inferiorly from the posterior knee and at the distal calf. Overlying soft tissue edema is noted. This could represent a large hematoma, abscess, or cystic soft tissue mass. Recommend correlation with patient history. This could be further evaluated with contrast-enhanced MRI if clinically warranted. Electronically signed by Shoaib Macedo 09-23-2025 4:[address] 09/23/25 16:18 CT of the left femur with contrast Technique: Postcontrast axial images of the left femur. Coronal and sagittal reformatted images made available for review. No comparison Findings: No acute fractures or dislocations. No vascular abnormality. Large hematoma involving the medial head of the right gastrocnemius muscle. This is better evaluated with dedicated CT of the calf. 3.8 cm left popliteal fossa Castellano's cyst. Impression: Left medial head gastrocnemius muscle hematoma Left popliteal fossa Castellano's cyst No acute osseous pathology Electronically signed by Talon Rosario 09-23-2025 7:[address] 09/23/25 16:18 CT of the left lower extremity. Technique: Postcontrast axial images of the left lower extremity. Coronal and sagittal reformatted images made available for review No comparison Findings: There is a 3.8 x 1.7 cm left popliteal fossa Castellano's cyst. This is separate and distinct from the confluent asymmetric enlargement of the medial head of the gastrocnemius muscle which contains a significant large soft tissue hematoma. No vascular compromise identified on this exam. Bone windows demonstrate no focal abnormality Impression Large hematoma involving the medial head of the left gastroc muscle Left popliteal fossa Castellano's cyst with contrast Electronically signed by Talon Rosario 09-23-2025 7:09 PM Discharge Plan Visit Data Chief Complaint: Swelling/Edema to Extremity Stated Complaint: BEHIND KNEE LT LEG SWELL ED Provider: Jessica Dumont ED Midlevel Provider: Shaneka Cunningham Discharge Problem: Pain and swelling of left lower extremity, Hematoma of left lower extremity, Castellano's cyst, Ambulatory dysfunction, Hypomagnesemia, Thrombocytopenia, Anemia, Anticoagulant long-term use Patient Disposition: Admitted As Inpatient Condition: Fair Forms Stand Alone Forms: My [facility] Prescriptions Prescriptions: No Action spironolactone 100 mg tablet 100 mg PO QAM allopurinol 300 mg Tablet 300 mg PO DAILY carvedilol [Coreg] 12.5 mg Tablet 6.25 mg PO BID folic acid 1 mg Tablet 1 mg PO QAM Qty: 90 1RF Eliquis 5 mg tablet 5 mg PO BID cyanocobalamin (vitamin B-12) [Vitamin B-12] 100 mcg Tablet 200 mcg PO DAILY clopidogrel [Plavix] 75 mg Tablet 75 mg PO DAILY magnesium gluconate 500 mg Tablet 2,000 mg PO TID Rx Instructions: DOSE 2,000 MG TID PER [facility] pantoprazole 20 mg Tablet,Delayed Release (Dr/Ec) 20 mg PO DAILY pyridoxine (vitamin B6) 50 mg Tablet 50 mg PO DAILY polyethylene glycol 3350 [Miralax] 17 gram/dose Powder 17 g PO DAILY PRN (Reason: Constipation) rosuvastatin 40 mg Tablet 40 mg PO HS semaglutide (weight loss) 2.4 mg/0.75 mL Pen Injector 2.4 mg SUBCUT WK Rx Instructions: MONDAYS Referrals Referrals: [facility] [Primary Care Provider] - Discharge Problem: Hematoma of left lower extremity Qualifiers: Encounter type: initial encounter Qualified Code(s): S80.12XA - Contusion of left lower leg, initial encounter Castellano's cyst Qualifiers: Laterality: left Qualified Code(s): M71.22 - Synovial cyst of popliteal space [Castellano], left knee
[2025-09-23] MEDS: ACETAMINOPHEN 1,000 MG/100 ML VIAL IV STA (13:44)
[2025-09-23 14:14] LABS: Hematocrit (blood only) 35.7 % (42.0-52.0); Hemoglobin 12.0 g/dL (14.0-18.0); Immature Granulocytes # (auto) 0.02 K/uL (0.01-0.20); Immature Granulocytes % (auto) 0.3 %; Mean Corpuscular Hemoglobin 31.8 pg (25.0-34.0); Mean Corpuscular Volume 94.7 fL (80.0-100.0); Platelet Count 112 K/uL (130-400); RDW Standard Deviation 44.5 fL (36.4-46.3); Red Blood Count 3.77 M/uL (4.70-6.10); White Blood Count 6.36 K/ul (4.8-10.8)
[2025-09-23 14:29] LABS: Alanine Aminotransferase 11.0 U/L (7-52); Albumin Globulin Ratio 1.2 (0.9-2); Albumin Level 4.2 gm/dl (3.4-5.0); Alkaline Phosphatase 60.0 U/L (34-104); Anion Gap 8.0 (3-11); Bilirubin,Total 0.7 mg/dl (0.2-1.0); Blood Urea Nitrogen 30.0 mg/dl (6-23); Calcium 9.9 mg/dl (8.6-10.3); Carbon Dioxide 24.0 mmol/L (21-32); Chloride 102.0 mmol/L (98-107); Creatinine Clr Calc Pharmacy 77.2 ml/min; Globulin 3.5 gm/dl (2.5-4.0); Glucose 87.0 mg/dl (70-99(Fasting)); Magnesium 1.2 mg/dl (1.7-2.4); Potassium 5.1 mmol/L (3.5-5.1); Sodium 134.0 mmol/L (136-145); Total Protein 7.7 gm/dl (6.0-8.3)
--- NOTE | 2025-09-23 14:35 | XRay Report ---
EXAM: Radiograph of the Chest 1 View INDICATION: Leg swelling. TECHNIQUE: Frontal view of the chest. COMPARISON: No relevant prior studies available. FINDINGS: Lungs and pleural spaces: No consolidation or pulmonary edema. No pleural effusion or pneumothorax. Heart: Shape and configuration within normal limits allowing for technique. Mediastinum: Normal contour. Bones/joints: Degenerative changes noted throughout the spine. No acute osseous abnormality seen. Soft tissues: No abnormality noted. No radiopaque foreign body noted. Upper abdomen: No abnormality noted. IMPRESSION: No acute cardiopulmonary disease. ACT 112: N/A Electronically signed by Alisa Noe 09-23-2025 2:35 PM
[2025-09-23 14:50] LABS: INR 1.1 (0.9-1.1); Partial Thromboplastin Time 28 Seconds (21-31); Prothrombin Time 11.9 Seconds (9.0-12.0)
[2025-09-23] MEDS: MAGNESIUM SULFATE / D5W 1 GM/100 ML BAG IV STA (15:36)
--- NOTE | 2025-09-23 16:22 | Ultrasound Report ---
HISTORY: Left lower extremity pain and swelling. TECHNIQUE: Left lower extremity venous Doppler evaluation for DVT. Grayscale, color Doppler, and spectral Doppler imaging was utilized. COMPARISON: None. FINDINGS: The left common femoral vein and greater saphenous junction appear compressible and color Doppler patent. The femoral vein and proximal deep femoral vein appear compressible and color Doppler patent. The popliteal and proximal calf veins appear color Doppler patent and compressible. Respiratory variation and augmentation is noted. 17.2 x 4.4 x 10.1 cm complex fluid collection or cystic mass extends from the posterior knee to the distal calf. This has no internal color Doppler flow. IMPRESSION: * No evidence of left lower extremity DVT. * 17.2 x 4.4 x 10.1 cm complex fluid collection or cystic mass extending inferiorly from the posterior knee and at the distal calf. Overlying soft tissue edema is noted. This could represent a large hematoma, abscess, or cystic soft tissue mass. Recommend correlation with patient history. This could be further evaluated with contrast-enhanced MRI if clinically warranted. Electronically signed by Shoaib Macedo 09-23-2025 4:21 PM
[2025-09-23] MEDS: OPTIRAY 320 100ml IV ONE (16:39)
--- NOTE | 2025-09-23 19:10 | CT Scan Report ---
CT of the left lower extremity. Technique: Postcontrast axial images of the left lower extremity. Coronal and sagittal reformatted images made available for review No comparison Findings: There is a 3.8 x 1.7 cm left popliteal fossa Castellano's cyst. This is separate and distinct from the confluent asymmetric enlargement of the medial head of the gastrocnemius muscle which contains a significant large soft tissue hematoma. No vascular compromise identified on this exam. Bone windows demonstrate no focal abnormality Impression Large hematoma involving the medial head of the left gastroc muscle Left popliteal fossa Castellano's cyst with contrast Electronically signed by Talon Rosario 09-23-2025 7:09 PM
--- NOTE | 2025-09-23 19:12 | CT Scan Report ---
CT of the left femur with contrast Technique: Postcontrast axial images of the left femur. Coronal and sagittal reformatted images made available for review. No comparison Findings: No acute fractures or dislocations. No vascular abnormality. Large hematoma involving the medial head of the right gastrocnemius muscle. This is better evaluated with dedicated CT of the calf. 3.8 cm left popliteal fossa Castellano's cyst. Impression: Left medial head gastrocnemius muscle hematoma Left popliteal fossa Castellano's cyst No acute osseous pathology Electronically signed by Talon Rosario 09-23-2025 7:12 PM
--- NOTE | 2025-09-23 20:02 | Emergency Department Note ---
ED Visit Note I was consulted by the Advanced Practice Provider. I personally approved the management plan and take responsibility for the patient management. This includes the aspects of: -History/Physical/Personally seeing the patient -MDM -I independently interpreted the following studies:Studies and results .
--- NOTE | 2025-09-23 21:31 | History & Physical Report ---
Date of Service September 23, 2025 Assessment & Plan (1) Hematoma of left lower extremity: (2) Anticoagulant long-term use: (3) Thrombocytopenia: (4) Anemia: Plan The patient is a 70-year-old male with a past medical history including anemia, homocystinemia, acute kidney injury, hypertension, pneumonia, hypertensive crisis, gout, hepatitis C, pulmonary embolism, pulmonary infarct, B12 deficiency, GERD, hyperlipidemia, and weight loss management. He presents to the emergency department with painful swelling in his left leg. He reports that he had a ultrasound of the left lower extremity prior to [place], was told he had a Castellano's cyst. He has follow-up with the [facility], who did repeat ultrasound but he is not aware of any results. Since the swelling has gotten progressively worse and is now painful, he presents to the ED for assessment. Workup in the emergency department included a venous Doppler left lower extremity which showed a 17.2 x 4.4 x 10.1 cm complex fluid/cystic mass. CT scan of fever and left lower extremity showed a left medial head of gastrocnemius muscle hematoma and a left popliteal Castellano's cyst. #Left medial head gastrocnemius hematoma/left popliteal Castellano's cyst- Hold apixaban and Plavix for now. Follow clinical examination Orthopedic surgery contacted over phone by ED and reports no intervention on their part Continue compression dressing as begun in the ED. #Thrombocytopenia- Platelets 112 significantly lower than usual. Holding apixaban and Plavix as noted Repeat laboratories in a.m. #Hypomagnesemia- Magnesium 1.2 on admission Given magnesium 1 g IV from the ED. Will give 2 additional grams of magnesium IV, recheck laboratories in the a.m. #CAD/hypertension/history of stents- Continue carvedilol. Temporarily hold spironolactone due to top normal potassium of 5.1, and apixaban and clopidogrel as noted above. #History of pulmonary embolism/pulmonary infarct- Temporarily holding apixaban as noted #GERD- Continue pantoprazole #B vitamin deficiencies- Continue B12, folic acid, pyridoxine #Weight loss management- On semaglutide as an outpatient, reports a greater than 30 pound weight loss #Gout- Continue allopurinol #Hepatitis C- Underwent curative treatment #Housing status- Patient unfortunately sold his house at a time when he was very depressed. Presently living in his van. History of Present Illness Primary Care Provider: [facility] The patient is a 70-year-old male with a past medical history including anemia, homocystinemia, acute kidney injury, hypertension, pneumonia, hypertensive cr ela, gout, hepatitis C, pulmonary embolism, pulmonary infarct, B12 deficiency, GERD, hyperlipidemia, and weight loss management. He presents to the emergency department with painful swelling in his left leg. He reports that he had a ultrasound of the left lower extremity prior to [place], was told he had a Castellano's cyst. He has follow-up with the [facility], who did repeat ultrasound but he is not aware of any results. Since the swelling has gotten progressively worse and is now painful, he presents to the ED for assessment. Workup in the emergency department included a venous Doppler left lower extremity which showed a 17.2 x 4.4 x 10.1 cm complex fluid/cystic mass. CT scan of fever and left lower extremity showed a left medial head of gastrocnemius muscle hematoma and a left popliteal Castellano's cyst. Allergies Allergy/AdvReac Type Severity Reaction Status Date / Time hydralazine AdvReac Severe Unresponsiv Verified 09/23/25 20:06 e codeine AdvReac Intermediate "MAKES ME Verified 09/23/25 20:06 GOOFEY" gabapentin AdvReac Unknown "felt Verified 09/23/25 20:06 santos" Home Medications Medication Instructions Recorded Confirmed Type allopurinol 300 mg tablet 300 mg PO DAILY 07/12/19 09/23/25 History spironolactone 100 mg tablet 100 mg PO QAM 07/12/19 09/23/25 History carvedilol 12.5 mg tablet (Coreg) 6.25 mg PO BID 12/08/19 09/23/25 History folic acid 1 mg tablet 1 mg PO QAM #90 tabs 11/27/22 09/23/25 Rx apixaban 5 mg tablet (Eliquis) 5 mg PO BID 09/23/25 09/23/25 History clopidogrel 75 mg tablet (Plavix) 75 mg PO DAILY 09/23/25 09/23/25 History cyanocobalamin (vitamin B-12) 100 200 mcg PO DAILY 09/23/25 09/23/25 History mcg tablet (Vitamin B-12) magnesium gluconate 500 mg tablet 2,000 mg PO TID 09/23/25 09/23/25 History pantoprazole 20 mg tablet,delayed 20 mg PO DAILY 09/23/25 09/23/25 History release polyethylene glycol 3350 17 17 g PO DAILY PRN Constipation 09/23/25 09/23/25 History gram/dose oral powder (Miralax) pyridoxine (vitamin B6) 50 mg 50 mg PO DAILY 09/23/25 09/23/25 History tablet rosuvastatin 40 mg tablet 40 mg PO HS 09/23/25 09/23/25 History semaglutide (weight loss) 2.4 2.4 mg subcut WK 09/23/25 09/23/25 History mg/0.75 mL subcutaneous pen injector Past Med/Surg History Problem List (Updated 09/23/25 @ 20:36 by Shaneka Cunningham PA-C) Anticoagulant long-term use (Acute) Anemia (Acute) Thrombocytopenia (Acute) Hypomagnesemia (Acute) Ambulatory dysfunction (Acute) Castellano's cyst (Acute) Hematoma of left lower extremity (Acute) Pain and swelling of left lower extremity (Acute) CHASE (dyspnea on exertion) Homocysteinemia Neck pain (Chronic) DVT prophylaxis RENÉE (acute kidney injury) (Acute) Acute hyperkalemia (Acute) Bradycardia (Acute) Dizziness (Acute) Acute hyponatremia (Acute) Hyperkalemia ARF (acute renal failure) Hypertension, poor control (Acute) Headache (Acute) Hypertensive urgency, malignant (Acute 11/16/13) FERNANDO (headache) (Acute) Hypertensive crisis (Acute) Foot pain (Acute) Elevated uric acid in blood (Acute) Gout of right foot (Acute) Medical History Pulmonary nodule Pulmonary embolism on right COVID-19 Hepatitis C Vitamin D deficiency Gout Chronic GERD Chronic kidney disease, stage III (moderate) Hyponatremia No significant past medical history Cirrhosis GERD (gastroesophageal reflux disease) Hypertension Family History Other No significant family history Social History Smoking Status: Never smoker Second Hand Exposure: No; Do You Dip or Chew Tobacco: No; Hx Alcohol Use: No Hx Substance Use: No Preferred Language: Danish Communication Ability: Effective Comparative Sociology Professor Required: No Beliefs That Will Affect Care: None Current Living Situation: Alone Other Information That Helps Us Care for You: No Feels Safe at Home: Yes Safety Concerns: Feels Safe At This Time Assistive Devices: Glasses and Hearing Aid - Bilateral Review of Systems Review of Systems: The patient denies chest pain, palpitations, shortness of breath, dyspnea on exertion, cough, sore throat, fevers, chills, sweats, weight change, fatigue, nausea, vomiting, diarrhea , constipation, abdominal pain, pelvic pain, blood in urine or stool, dysuria, urinary frequency or urgency, lightheadedness, dizziness, headache, memory loss, loss of consciousness, rash, abnormal bruising or bleeding, focal weakness, numbness or tingling in arms or right leg, generalized arthralgias or myalgias, back or neck pain, or night sweats. The review of systems is otherwise negative other than for that already noted above, and at least 10 systems have been reviewed. Physical Exam Physical Exam: The patient is awake, alert and oriented 3, well developed and well nourished, normocephalic and atraumatic, lying in bed and in no acute distress. HEENT--PERRL, EOMI, mucous membranes and oropharynx dry. Neck--supple. No JVD. No bruits. Thyroid normal, trachea midline, no adenopathy. Heart--normal S1 and S2. No murmurs, rubs or gallops. Lungs--clear bilaterally, no respiratory distress, no accessory muscle use. Abdomen--normal bowel sounds and soft. Nontender. Nondistended, no hernias or masses, no organomegaly. Extremities--right lower extremity normal. Left lower extremity with nonpitting edema of the calf. Dermatologic--no rash, no signs of compartment syndrome. Neurologic--cranial nerves II through XII grossly intact. Rheumatologic--normal range of motion except for left lower extremity Psychiatric--normal affect. Results & Data Results & Data Vital Signs (Past 12 Hours) Vital Signs Temp Pulse Pulse Resp BP BP Pulse Ox 09/23/25 20:08 58 L 18 143/69 H 100 09/23/25 18:26 59 L 19 125/60 99 09/23/25 16:59 57 L 21 146/58 H 98 09/23/25 12:54 36.4 C L 86 19 136/78 98 O2 Del Method 09/23/25 20:08 Room Air 09/23/25 18:26 Room Air 09/23/25 16:59 Room Air 09/23/25 12:54 Room Air Laboratory Results Laboratory Results WBC 6.36 K/ul (4.8-10.8) 09/23/25 13:48 RBC 3.77 M/uL (4.70-6.10) L 09/23/25 13:48 Hgb 12.0 g/dL (14.0-18.0) L 09/23/25 13:48 Hct 35.7 % (42.0-52.0) L 09/23/25 13:48 MCV 94.7 fL (80.0-100.0) 09/23/25 13:48 MCH 31.8 pg (25.0-34.0) 09/23/25 13:48 MCHC 33.6 g/dL (32.0-36.0) 09/23/25 13:48 RDW Std Deviation 44.5 fL (36.4-46.3) 09/23/25 13:48 RDW Coeff of Marli 12.9 % (11.5-14.5) 09/23/25 13:48 Plt Count 112 K/uL (130-400) L 09/23/25 13:48 MPV 11.4 fL (9.4-12.4) 09/23/25 13:48 Immature Gran % (Auto) 0.3 % 09/23/25 13:48 Neut % (Auto) 67.4 % 09/23/25 13:48 Lymph % (Auto) 18.9 % 09/23/25 13:48 Sac % (Auto) 9.3 % 09/23/25 13:48 Eos % (Auto) 3.5 % 09/23/25 13:48 Baso % (Auto) 0.6 % 09/23/25 13:48 Neut # (Auto) 4.29 K/uL (1.40-6.50) 09/23/25 13:48 Lymph # (Auto) 1.20 K/uL (1.20-3.40) 09/23/25 13:48 Sac # (Auto) 0.59 K/uL (0.11-0.59) 09/23/25 13:48 Eos # (Auto) 0.22 K/uL (0.00-0.50) 09/23/25 13:48 Baso # (Auto) 0.04 K/uL (0.00-0.20) 09/23/25 13:48 Immature Gran # (Auto) 0.02 K/uL (0.01-0.20) 09/23/25 13:48 PT 11.9 Seconds (9.0-12.0) 09/23/25 13:48 INR 1.1 (0.9-1.1) 09/23/25 13:48 APTT 28 Seconds (21-31) 09/23/25 13:48 PTT Ratio 1.0 09/23/25 13:48 Sodium 134 mmol/L (136-145) L 09/23/25 13:48 Potassium 5.1 mmol/L (3.5-5.1) 09/23/25 13:48 Chloride 102 mmol/L (98-107) 09/23/25 13:48 Carbon Dioxide 24 mmol/L (21-32) 09/23/25 13:48 Anion Gap 8 (3-11) 09/23/25 13:48 BUN 30 mg/dl (6-23) H 09/23/25 13:48 Creatinine 1.17 mg/dl (0.6-1.4) 09/23/25 13:48 Est Cr Clr Drug Dosing 77.2 ml/min 09/23/25 13:48 eGFR 67.06 09/23/25 13:48 BUN/Creatinine Ratio 25.6 (10-20) H 09/23/25 13:48 Glucose 87 mg/dl (70-99(Fasting)) 09/23/25 13:48 Calcium 9.9 mg/dl (8.6-10.3) 09/23/25 13:48 Magnesium 1.2 mg/dl (1.7-2.4) L 09/23/25 13:48 Total Bilirubin 0.7 mg/dl (0.2-1.0) 09/23/25 13:48 AST 25 U/L (13-39) 09/23/25 13:48 ALT 11 U/L (7-52) 09/23/25 13:48 Alkaline Phosphatase 60 U/L (34-104) 09/23/25 13:48 B-Natriuretic Peptide 32 pg/ml (0-100) 09/23/25 13:48 Total Protein 7.7 gm/dl (6.0-8.3) 09/23/25 13:48 Albumin 4.2 gm/dl (3.4-5.0) 09/23/25 13:48 Globulin 3.5 gm/dl (2.5-4.0) 09/23/25 13:48 Albumin/Globulin Ratio 1.2 (0.9-2) 09/23/25 13:48 Impressions Chest X-Ray 09/23/25 13:26 EXAM: Radiograph of the Chest 1 View INDICATION: Leg swelling. TECHNIQUE: Frontal view of the chest. COMPARISON: No relevant prior studies available. FINDINGS: Lungs and pleural spaces: No consolidation or pulmonary edema. No pleural effusion or pneumothorax. Heart: Shape and configuration within normal limits allowing for technique. Mediastinum: Normal contour. Bones/joints: Degenerative changes noted throughout the spine. No acute osseous abnormality seen. Soft tissues: No abnormality noted. No radiopaque foreign body noted. Upper abdomen: No abnormality noted. IMPRESSION: No acute cardiopulmonary disease. ACT 112: N/A Electronically signed by Alisa Noe 09-23-2025 2:35 PM Venous Doppler Study 09/23/25 13:26 HISTORY: Left lower extremity pain and swelling. TECHNIQUE: Left lower extremity venous Doppler evaluation for DVT. Grayscale, color Doppler, and spectral Doppler imaging was utilized. COMPARISON: None. FINDINGS: The left common femoral vein and greater saphenous junction appear compressible and color Doppler patent. The femoral vein and proximal deep femoral vein appear compressible and color Doppler patent. The popliteal and proximal calf veins appear color Doppler patent and compressible. Respiratory variation and augmentation is noted. 17.2 x 4.4 x 10.1 cm complex fluid collection or cystic mass extends from the posterior knee to the distal calf. This has no internal color Doppler flow. IMPRESSION: * No evidence of left lower extremity DVT. * 17.2 x 4.4 x 10.1 cm complex fluid collection or cystic mass extending inferiorly from the posterior knee and at the distal calf. Overlying soft tissue edema is noted. This could represent a large hematoma, abscess, or cystic soft tissue mass. Recommend correlation with patient history. This could be further evaluated with contrast-enhanced MRI if clinically warranted. Electronically signed by Shoaib Macedo 09-23-2025 4:[address] 09/23/25 16:18 CT of the left femur with contrast Technique: Postcontrast axial images of the left femur. Coronal and sagittal reformatted images made available for review. No comparison Findings: No acute fractures or dislocations. No vascular abnormality. Large hematoma involving the medial head of the right gastrocnemius muscle. This is better evaluated with dedicated CT of the calf. 3.8 cm left popliteal fossa Castellano's cyst. Impression: Left medial head gastrocnemius muscle hematoma Left popliteal fossa Castellano's cyst No acute osseous pathology Electronically signed by Talon Rosario 09-23-2025 7:[address] 09/23/25 16:18 CT of the left lower extremity. Technique: Postcontrast axial images of the left lower extremity. Coronal and sagittal reformatted images made available for review No comparison Findings: There is a 3.8 x 1.7 cm left popliteal fossa Castellano's cyst. This is separate and distinct from the confluent asymmetric enlargement of the medial head of the gastrocnemius muscle which contains a significant large soft tissue hematoma. No vascular compromise identified on this exam. Bone windows demonstrate no focal abnormality Impression Large hematoma involving the medial head of the left gastroc muscle Left popliteal fossa Castellano's cyst with contrast Electronically signed by Talon Rosario 09-23-2025 7:09 PM Code Status & VTE Plan Code Status Full code VTE Prophylaxis Plan VTE Prophylaxis will be ordered: Yes PG Care Time/CCT Total # of Minutes Spent Total Time Spent with Patient: Total time spent is greater than 50% in coordination of care (as documented) at patient's floor/unit and/or counseling patient: Coding Level of Care Code 27926 INT INP/OBS CARE 3/75MIN Diagnoses Hematoma of left lower extremity S80.12XA Encounter type: initial encounter Anticoagulant long-term use Z79.01 Thrombocytopenia D69.6 Anemia D64.9 (1) Hematoma of left lower extremity Encounter type: initial encounter Qualified Code(s): S80.12XA - Contusion of left lower leg, initial encounter
[2025-09-23] MEDS: MAGNESIUM SULFATE / D5W 1 GM/100 ML BAG IV SCH (21:40)
[2025-09-23] MEDS ORDERED: POLYETHYLENE (MIRALAX) 17 GM PACK PO PRN (22:44)
[2025-09-24 06:16] LABS: Hematocrit (blood only) 32.5 % (42.0-52.0); Hemoglobin 11.5 g/dL (14.0-18.0); Immature Granulocytes # (auto) 0.02 K/uL (0.01-0.20); Immature Granulocytes % (auto) 0.4 %; Mean Corpuscular Hemoglobin 33.0 pg (25.0-34.0); Mean Corpuscular Volume 93.1 fL (80.0-100.0); Platelet Count 111 K/uL (130-400); RDW Standard Deviation 43.3 fL (36.4-46.3); Red Blood Count 3.49 M/uL (4.70-6.10); White Blood Count 5.56 K/ul (4.8-10.8)
[2025-09-24 06:40] LABS: Alanine Aminotransferase 10.0 U/L (7-52); Albumin Globulin Ratio 1.3 (0.9-2); Albumin Level 3.8 gm/dl (3.4-5.0); Alkaline Phosphatase 55.0 U/L (34-104); Anion Gap 7.0 (3-11); Bilirubin,Total 0.7 mg/dl (0.2-1.0); Blood Urea Nitrogen 24.0 mg/dl (6-23); Calcium 9.5 mg/dl (8.6-10.3); Carbon Dioxide 25.0 mmol/L (21-32); Chloride 102.0 mmol/L (98-107); Creatinine Clr Calc Pharmacy 79.6 ml/min; Globulin 2.9 gm/dl (2.5-4.0); Glucose 97.0 mg/dl (70-99(Fasting)); Magnesium 1.7 mg/dl (1.7-2.4); Potassium 4.2 mmol/L (3.5-5.1); Sodium 134.0 mmol/L (136-145); Total Protein 6.7 gm/dl (6.0-8.3)
[2025-09-24] MEDS ORDERED: ACETAMINOPHEN 500 MG TAB PO PRN (08:17)
[2025-09-24] MEDS: CYANOCOBALAMIN (B-12) 100 MCG TABLET PO SCH (08:47)
[2025-09-24] MEDS: PYRIDOXINE HCL 50 MG TAB PO SCH (08:47)
[2025-09-24] MEDS: FOLIC ACID 1 MG TAB PO SCH (08:47)
[2025-09-24] MEDS: MAGNESIUM OXIDE 400 MG TAB PO SCH (08:48)
[2025-09-24] MEDS ORDERED: CLOPIDOGREL BISULFATE 75 MG TAB PO SCH (09:00)
[2025-09-24] MEDS ORDERED: SPIRONOLACTONE 100 MG TAB PO SCH (09:00)
[2025-09-24] MEDS ORDERED: APIXABAN 5 MG TABLET PO SCH (09:00)
[2025-09-24] MEDS: SPIRONOLACTONE 100 MG TAB PO SCH (09:36)
--- NOTE | 2025-09-24 13:32 | Hospitalist Progress Note ---
Date of Service September 24, 2025 Assessment & Plan (1) Hematoma of left lower extremity: (2) Anticoagulant long-term use: (3) Thrombocytopenia: (4) Anemia: Plan The patient is a 70-year-old male with a PMHx including anemia, homocystinemia, HTN, gout, hepatitis C, pulmonary embolism, pulmonary infarct, B12 deficiency, GERD, hyperlipidemia, and weight loss management. He presents with painful swelling in his left leg - [facility]. He reports that he had a ultrasound of the left lower extremity prior to [place], was told he had a Castellano's cyst. [facility] but he is not aware of any results. Workup in the emergency department included a venous Doppler left lower extremity which showed a 17.2 x 4.4 x 10.1 cm complex fluid/cystic mass. CT scan of fever and left lower extremity showed a left medial head of gastrocnemius muscle hematoma and a left popliteal Castellano's cyst. #Left medial head gastrocnemius hematoma/left popliteal Castellano's cyst- Hold apixaban and Plavix for now. Orthopedic surgery contacted over phone by ED and reports no intervention on their part - formal consult placed as patient has multiple questions regarding disposition and ongoing treatment plan Continue compression dressing and elevation PT consulted - unable to do HH PT as lives in a van, ? rehab vs OP #Thrombocytopenia- Platelets 112 significantly lower than usual. Holding apixaban and Plavix as noted #Hypomagnesemia- Magnesium 1.2 on admission, Given IV mag and now replete. #CAD/hypertension/history of stents- Continue carvedilol. Resume spironolactone as K has normalized. Hold apixaban and clopidogrel as noted above. #History of pulmonary embolism/pulmonary infarct- Temporarily holding apixaban as noted #GERD- Continue pantoprazole #B vitamin deficiencies- Continue B12, folic acid, pyridoxine #Weight loss management- On semaglutide as an outpatient, reports a greater than 30 pound weight loss #Gout-Continue allopurinol #Hepatitis C-Underwent curative treatment Dispo: continued inpatient stay, awaiting ortho input, stable for downgrade to medical DVT proh: held with hematoma Admission and Anticipated Discharge Date Admission Date: September 23, 2025 Subjective patient seen lying in bed - reports pain in his leg has improved, but rates it as a 8/10 - has not taken any pain medicine today has many questions about disposition and how this is going to get better - attempted to answer questions to the best of my ability, but he still has further questions tele - SR 50-60s Review of Systems Review of Systems: All systems reviewed & are unremarkable except as noted in Subjective Physical Exam Physical Exam: General: NAD, VS as above, lying in bed, appears well Resp: normal respiratory effort, lungs clear to auscultation CV: RRR, no murmur, Abd: normal bowel sounds, non tender, soft Extremities: Moves all extremities, jitendra wrap removed from left leg - swelling to knee, but improved from photos on his phone. Tender to palpation, no erythema or obvious bruising yet. Neuro: A&O x3, Results & Data Results & Data Vital Signs (Past 12 Hours) Vital Signs Temp Pulse Pulse Resp BP Pulse Ox O2 Del Method 09/24/25 12:09 97.3 F L 65 20 128/72 100 Room Air 09/24/25 07:57 97.9 F 68 20 100/60 97 Room Air 09/24/25 07:52 Room Air 09/24/25 05:28 67 09/24/25 03:39 97.5 F L 60 16 112/66 99 Room Air Laboratory Results cbc and chemistry reviewed Diagnostic Findings LE CT reviewed Femur CT reviewed PG Care Time/CCT Total # of Minutes Spent Total Time Spent with Patient: Total time spent is greater than 50% in coordination of care (as documented) at patient's floor/unit and/or counseling patient: Coding Level of Care Code 69906 SUB INP/OBS CARE 2/35MIN Diagnoses Hematoma of left lower extremity S80.12XA Encounter type: initial encounter Anticoagulant long-term use Z79.01 Thrombocytopenia D69.6 Anemia D64.9 (1) Hematoma of left lower extremity Encounter type: initial encounter Qualified Code(s): S80.12XA - Contusion of left lower leg, initial encounter
[2025-09-24] MEDS: ROSUVASTATIN CALCIUM 20 MG TAB PO SCH (20:06)
--- NOTE | 2025-09-24 22:09 | Orthopedic Consultation ---
Date of Consultation September 24, 2025 Assessment & Plan (1) Hematoma of left lower extremity: (2) Anticoagulant long-term use: (3) Ambulatory dysfunction: (4) Castellano's cyst: (5) CHASE (dyspnea on exertion): (6) Hypertension, poor control: (7) RENÉE (acute kidney injury): (8) Chronic kidney disease, stage III (moderate): (9) Chronic GERD: (10) Vitamin D deficiency: Estrella Gant is a 70-year-old medically complicated individual who presents to the emergency department yesterday for pain and swelling that is been ongoing in his left leg for at least the last 3 months. He has had this worked up multiple times with ultrasounds none of which have ever shown a DVT. He has has a history of a DVT and is currently on anticoagulation including Eliquis and Plavix. DR Joyce was originally consulted from emergency department, however I received a consult to evaluate the patient today. On my evaluation, he shows no signs or symptoms concerning for compartment syndrome. He does have imaging studies demonstrating an intramuscular hematoma of the medial head of his gastrocnemius as well as a Castellano's cyst. I do long discussion the patient regarding both of these conditions. We discussed in great detail the pathoanatomy, pathophysiology, treatment options. With regards to his Castellano's cyst, this represents his underlying knee osteoarthritis. Insert and the patient has no significant knee pain, I recommend conservative care for this. He has no pain with knee range of motion today and notes that his knee has not really bothered him, more so it is the hematoma in his leg. With guards the patient's hematoma, my suspicion is that this is related to his anticoagulation use. Dr. Joyce recommended holding his anticoagulation, I would defer this to the medicine team. I suspect that adjusting the patient's anticoagulation and providing him with some compression will help resolve this hematoma such as a thigh-high Shalom stocking. No acute plans orthopedic intervention at this time. Would recommend outpatient follow-up with his primary care provider with regards to this. Should the patient's hematoma fail to resolve, a CTA could be of use to determine if there is a small bleeding vessel contributing to it. Should this be discovered, I would recommend interventional radiology evaluation to determine if cauterization is able to be done, however my suspicion is that the patient's hematoma has not resolved entirely because he is on significant anticoagulation and has not had any compression on his leg. History of Present Illness Reason for Consultation: left leg swelling Attending Physician: Jose Luis Erickson History of Present Illness The patient is a 70-year-old male with a past medical history including anemia, homocystinemia, acute kidney injury, hypertension, pneumonia, hypertensive crisis, gout, hepatitis C, pulmonary embolism, pulmonary infarct, B12 deficiency, GERD, hyperlipidemia, and weight loss management. He presented to the emergency department with painful swelling in his left leg. He reports that he had a ultrasound of the left lower extremity prior to [place], was told he had a Castellano's cyst. He has follow-up with the [place], who did repeat ultrasound but he is not aware of any results. Workup in the emergency department included a venous Doppler left lower extremity which showed a 17.2 x 4.4 x 10.1 cm complex fluid/cystic mass. CT scan of fever and left lower extremity showed a left medial head of gastrocnemius muscle hematoma and a left popliteal Castellano's cyst. Dr Joyce was contacted by the emergency department but did not see the patient today, so instead I was consulted. On my evaluation patient is evening, he notes that he has had swelling in his lower leg on and off for the last 3 months. He states is always seems to be in the same location located around his knee. Has had this worked up multiple times. He denies any trauma to the area. He has not used any compression at home. He states the pain is improved since being in the hospital. He denies any pain in his actual knee. Allergies Allergy/AdvReac Type Severity Reaction Status Date / Time hydralazine AdvReac Severe Unresponsiv Verified 09/23/25 20:06 e codeine AdvReac Intermediate "MAKES ME Verified 09/23/25 20:06 ANNAOFEY" gabapentin AdvReac Unknown "felt Verified 09/23/25 20:06 annaofconchis" Home Medications Medication Instructions Recorded Confirmed Type allopurinol 300 mg tablet 300 mg PO DAILY 07/12/19 09/23/25 History spironolactone 100 mg tablet 100 mg PO QAM 07/12/19 09/23/25 History carvedilol 12.5 mg tablet (Coreg) 6.25 mg PO BID 12/08/19 09/23/25 History folic acid 1 mg tablet 1 mg PO QAM #90 tabs 11/27/22 09/23/25 Rx apixaban 5 mg tablet (Eliquis) 5 mg PO BID 09/23/25 09/23/25 History clopidogrel 75 mg tablet (Plavix) 75 mg PO DAILY 09/23/25 09/23/25 History cyanocobalamin (vitamin B-12) 100 200 mcg PO DAILY 09/23/25 09/23/25 History mcg tablet (Vitamin B-12) magnesium gluconate 500 mg tablet 2,000 mg PO TID 09/23/25 09/23/25 History pantoprazole 20 mg tablet,delayed 20 mg PO DAILY 09/23/25 09/23/25 History release polyethylene glycol 3350 17 17 g PO DAILY PRN Constipation 09/23/25 09/23/25 History gram/dose oral powder (Miralax) pyridoxine (vitamin B6) 50 mg 50 mg PO DAILY 09/23/25 09/23/25 History tablet rosuvastatin 40 mg tablet 40 mg PO HS 09/23/25 09/23/25 History semaglutide (weight loss) 2.4 2.4 mg subcut WK 09/23/25 09/23/25 History mg/0.75 mL subcutaneous pen injector Patient History Medical History Pulmonary nodule Pulmonary embolism on right COVID-19 Hepatitis C Vitamin D deficiency Gout Chronic GERD Chronic kidney disease, stage III (moderate) Hyponatremia No significant past medical history Cirrhosis GERD (gastroesophageal reflux disease) Hypertension Family History Other No significant family history Social History Smoking Status: Never smoker Second Hand Exposure: No; Do You Dip or Chew Tobacco: No; Hx Alcohol Use: No Hx Substance Use: No Preferred Language: French Communication Ability: Effective Level Vial Grinder Required: No Beliefs That Will Affect Care: None Current Living Situation: Alone Other Information That Helps Us Care for You: No Feels Safe at Home: Yes Safety Concerns: Feels Safe At This Time Assistive Devices: None Review of Systems Review of Systems: All systems reviewed & are unremarkable except as noted in HPI & below Physical Exam Physical Exam: Left lower extremity exam. Patient's lower extremity compartments are soft and easily compressible. He has no pain with passive range of motion of the ankle or the toes. He has intact sensation throughout the lower extremity. His foot is warm well-perfused. Patient is tender palpation over the medial head of his gastrocnemius. There is swelling in this area as compared to the contralateral side without significant ecchymosis. No erythema. No open wounds. Patient is able to demonstrate range of motion of his knee from 0 to 100 degrees without pa in. Results & Data Vital Signs (Past 12 Hours) Vital Signs Temp Pulse Pulse Resp BP Pulse Ox O2 Del Method 09/24/25 19:37 37 C 69 18 115/69 95 Room Air 09/24/25 15:49 36.7 C 64 20 127/61 96 Room Air 09/24/25 13:26 65 09/24/25 12:09 36.3 C L 65 20 128/72 100 Room Air Diagnostic Findings CT scans of the femur and tibia/fib were personally interpreted and reviewed. These demonstrate no acute osseous abnormalities. There is degenerative changes of the left knee with joint space narrowing and osteophytes. In the soft tissues of the medial head of the gastrocnemius, there is an intramuscular hematoma. No soft tissue gas appreciated. (1) Hematoma of left lower extremity Encounter type: initial encounter Qualified Code(s): S80.12XA - Contusion of left lower leg, initial encounter (4) Castellano's cyst Laterality: left Qualified Code(s): M71.22 - Synovial cyst of popliteal space [Castellano], left knee
[2025-09-25 07:47] VITALS: BP 101/62; PULSE 76; RESP 20; TEMP 97.7; O2SAT 96
[2025-09-25 07:53] LABS: Hematocrit (blood only) 34.7 % (42.0-52.0); Hemoglobin 11.9 g/dL (14.0-18.0); Mean Corpuscular Hemoglobin 31.7 pg (25.0-34.0); Mean Corpuscular Volume 92.5 fL (80.0-100.0); Platelet Count 123 K/uL (130-400); RDW Standard Deviation 43.4 fL (36.4-46.3); Red Blood Count 3.75 M/uL (4.70-6.10); White Blood Count 5.89 K/ul (4.8-10.8)
--- NOTE | 2025-09-25 10:27 | Discharge Summary ---
Discharge Summary Date of Service September 25, 2025 Principal Dx & Hospital Course #1 = Principal Diagnosis (1) Hematoma of left lower extremity: (2) Anticoagulant long-term use: (3) Thrombocytopenia: (4) Anemia: Plan #Left medial head gastrocnemius hematoma/left popliteal Castellano's cyst- The patient is a 70-year-old male with a PMHx including anemia, homocystinemia, HTN, gout, hepatitis C, pulmonary embolism, pulmonary infarct, B12 deficiency, GERD, hyperlipidemia, and weight loss management. He presents with painful swelling in his left leg - [facility]. He reports that he had a ultrasound of the left lower extremity prior to [place], was told he had a Castellano's cyst. [facility] but he is not aware of any results. Workup in the emergency department included a venous Doppler left lower extremity which showed a 17.2 x 4.4 x 10.1 cm complex fluid/cystic mass. CT scan of fever and left lower extremity showed a left medial head of gastrocnemius muscle hematoma and a left popliteal Castellano's cyst. Eliquis and Plavix were held. Patient was seen by orthopedicsrecommend conservative management follow-up with PCP to ensure that hematoma is decreasing in size, continue compression and hold anticoagulation while safe to do so. Continue compression dressing and elevation. PT consulted - offered patient rx for outpatient therapy but he declined and said he will speak to [place]. PT consulted - unable to do HH PT as lives in a van, ? rehab vs OP #Thrombocytopenia- improving, holding apixaban and Plavix as noted #Hypomagnesemia- Magnesium 1.2 on admission, Given IV mag and now replete. #CAD/hypertension/history of stents- Continue carvedilol and spironolactone Hold apixaban and clopidogrel as noted above. #History of pulmonary embolism/pulmonary infarct- Temporarily holding apixaban as noted #GERD- Continue pantoprazole #B vitamin deficiencies- Continue B12, folic acid, pyridoxine #Weight loss management- On semaglutide as an outpatient, reports a greater than 30 pound weight loss #Gout-Continue allopurinol #Hepatitis C-Underwent curative treatment Dispo: discharge to home today Notes For Next Care Provider Eliquis and Plavix until seen by PCP patient dissatisfied with his care as there was no surgical intervention offered despite education provided. Admission HPI Per Admitting Provider The patient is a 70-year-old male with a past medical history including anemia, homocystinemia, acute kidney injury, hypertension, pneumonia, hypertensive crisis, gout, hepatitis C, pulmonary embolism, pulmonary infarct, B12 deficiency, GERD, hyperlipidemia, and weight loss management. He presents to [facility] emergency department with painful swelling in his left leg. He reports that he had a ultrasound of the left lower extremity prior to [place], was told he had a Castellano's cyst. He has follow-up with the [place], who did repeat ultrasound but he is not aware of any results. Since the swelling has gotten progressively worse and is now painful, he presents to the ED for assessment. Workup in the emergency department included a venous Doppler left lower extremity which showed a 17.2 x 4.4 x 10.1 cm complex fluid/cystic mass. CT scan of fever and left lower extremity showed a left medial head of gastrocnemius muscle hematoma and a left popliteal Castellano's cyst. Discharge Exam General: NAD, VS as above, ambulating around the room Resp: normal respiratory effort, lungs clear to auscultation CV: RRR, no murmur, Abd: normal bowel sounds, non tender, soft Extremities: Moves all extremities, swelling improving Neuro: A&O x3, Discharge Plan Discharge Items Patient Disposition: Home - Self-Care Reason For Visit: LLE HEMATOMA, HYPOMAGNESEMIA Discharge Diagnosis: Left leg hematoma Condition on Discharge: Fair Activity: Resume your previous activity Driving/Machine Use: No limitations Weightbearing: Full weightbearing Non-emergency contact: Primary Care Provider Call non-emergency contact if: you have any medication questions, your symptoms worsen, your pain is not controlled and your temperature is above 101 Follow-up/Referrals: [facility] [Primary Care Provider] - (follow up within one week ) Diet: Heart Healthy Addtl Attending Provider Instructions: Mr. Cassidy You were hospitalized after having continued leg swelling - this was found to be from a castellano's cyst as well as a hematoma (large bruise) in your gastrocnemius muscle. You were evaluated by orthopedics who did not recommend any sugrical intervention. There is good indication that the bleeding has stopped as your blood counts have improved. It will take time for your body to reabsorb the blood - the best thing you can do to help this process along is to elevate the leg and and keep compression on it. You can use heat, ice or tylenol for the pain. Please hold your eliquis and plavix until [facility]. No other changes to your home medications. Pending Studies at Discharge: No Stand-Alone Forms: [facility], Smoking Cessation Medications and DC Order Prescriptions: Continued spironolactone 100 mg tablet 100 mg PO QAM allopurinol 300 mg Tablet 300 mg PO DAILY carvedilol [Coreg] 12.5 mg Tablet 6.25 mg PO BID folic acid 1 mg Tablet 1 mg PO QAM Qty: 90 1RF cyanocobalamin (vitamin B-12) [Vitamin B-12] 100 mcg Tablet 200 mcg PO DAILY magnesium gluconate 500 mg Tablet 2,000 mg PO TID Rx Instructions: DOSE 2,000 MG TID PER [facility] pantoprazole 20 mg Tablet,Delayed Release (Dr/Ec) 20 mg PO DAILY pyridoxine (vitamin B6) 50 mg Tablet 50 mg PO DAILY polyethylene glycol 3350 [Miralax] 17 gram/dose Powder 17 g PO DAILY PRN (Reason: Constipation) rosuvastatin 40 mg Tablet 40 mg PO HS semaglutide (weight loss) 2.4 mg/0.75 mL Pen Injector 2.4 mg SUBCUT WK Rx Instructions: MONDAYS Held Eliquis 5 mg tablet 5 mg PO BID Hold Instructions: Provider's Order - discuss with PCP clopidogrel [Plavix] 75 mg Tablet 75 mg PO DAILY Hold Instructions: Provider's Order - discuss with PCP Discharge Orders: Discharge Order (Routine); Ordered 09/25/25 Ordered By: Naya Bean/Other Patient Handouts: ED Bruise, Lower Extremity Admission Data Admit Date/Time: 09/23/25 21:31 Attending Provider: Jose Luis Erickson Admit Provider: Homar Gill Primary Care Provider: [facility] Other Providers: Homar Gill; Jesús Franklin Other Interventions: Discharge Summary Assessment (RN) Last Done: 09/25/25 10:41 Hospital Stay Data Consultations 09/23/25 19:57 ED Decision to Admit Stat 09/24/25 11:40 Consult Orthopedic Surgery Routine Diagnostic Imagining Performed Chest X-Ray 09/23/25 13:26 EXAM: Radiograph of the Chest 1 View INDICATION: Leg swelling. TECHNIQUE: Frontal view of the chest. COMPARISON: No relevant prior studies available. FINDINGS: Lungs and pleural spaces: No consolidation or pulmonary edema. No pleural effusion or pneumothorax. Heart: Shape and configuration within normal limits allowing for technique. Mediastinum: Normal contour. Bones/joints: Degenerative changes noted throughout the spine. No acute osseous abnormality seen. Soft tissues: No abnormality noted. No radiopaque foreign body noted. Upper abdomen: No abnormality noted. IMPRESSION: No acute cardiopulmonary disease. ACT 112: N/A Electronically signed by Alisa Noe 09-23-2025 2:35 PM Venous Doppler Study 09/23/25 13:26 HISTORY: Left lower extremity pain and swelling. TECHNIQUE: Left lower extremity venous Doppler evaluation for DVT. Grayscale, color Doppler, and spectral Doppler imaging was utilized. COMPARISON: None. FINDINGS: The left common femoral vein and greater saphenous junction appear compressible and color Doppler patent. The femoral vein and proximal deep femoral vein appear compressible and color Doppler patent. The popliteal and proximal calf veins appear color Doppler patent and compressible. Respiratory variation and augmentation is noted. 17.2 x 4.4 x 10.1 cm complex fluid collection or cystic mass extends from the posterior knee to the distal calf. This has no internal color Doppler flow. IMPRESSION: * No evidence of left lower extremity DVT. * 17.2 x 4.4 x 10.1 cm complex fluid collection or cystic mass extending inferiorly from the posterior knee and at the distal calf. Overlying soft tissue edema is noted. This could represent a large hematoma, abscess, or cystic soft tissue mass. Recommend correlation with patient history. This could be further evaluated with contrast-enhanced MRI if clinically warranted. Electronically signed by Shoaib Macedo 09-23-2025 4:[address] 09/23/25 16:18 CT of the left femur with contrast Technique: Postcontrast axial images of the left femur. Coronal and sagittal reformatted images made available for review. No comparison Findings: No acute fractures or dislocations. No vascular abnormality. Large hematoma involving the medial head of the right gastrocnemius muscle. This is better evaluated with dedicated CT of the calf. 3.8 cm left popliteal fossa Castellano's cyst. Impression: Left medial head gastrocnemius muscle hematoma Left popliteal fossa Castellano's cyst No acute osseous pathology Electronically signed by Talon Rosario 09-23-2025 7:[address] 09/23/25 16:18 CT of the left lower extremity. Technique: Postcontrast axial images of the left lower extremity. Coronal and sagittal reformatted images made available for review No comparison Findings: There is a 3.8 x 1.7 cm left popliteal fossa Castellano's cyst. This is separate and distinct from the confluent asymmetric enlargement of the medial head of the gastrocnemius muscle which contains a significant large soft tissue hematoma. No vascular compromise identified on this exam. Bone windows demonstrate no focal abnormality Impression Large hematoma involving the medial head of the left gastroc muscle Left popliteal fossa Castellano's cyst with contrast Electronically signed by Talon Rosario 09-23-2025 7:09 PM Pending Results Patient Have Any Pending Studies at Discharge: No Discharge Instructions Given to Patient (Per Discharging Provider) Mr. Cassidy You were hospitalized after having continued leg swelling - this was found to be from a castellano's cyst as well as a hematoma (large bruise) in your gastrocnemius muscle. You were evaluated by orthopedics who did not recommend any sugrical intervention. There is good indication that the bleeding has stopped as your blood counts have improved. It will take time for your body to reabsorb the blood - the best thing you can do to help this process along is to elevate the leg and and keep compression on it. You can use heat, ice or tylenol for the pain. Please hold your eliquis and plav[facility] No other changes to your home medications. Total Time Total Time Spent Total Time Spent (In Minutes): Time spent day of discharge 35 minutes including direct patient care, medication reconciliation, documentation, review of labs and images, and coordination of care. Coding Level of Care Code 85408 INP/OBS DISCH >30 MIN Diagnoses Hematoma of left lower extremity S80.12XA Encounter type: initial encounter Anticoagulant long-term use Z79.01 Thrombocytopenia D69.6 Anemia D64.9
== END 2025-09-25 10:50 | disposition home or self-care (01) | DRG 813 ==
LOC: ED 12:49 → 2N 21:31 → SUATTDRO 21:31 → 2N 22:26